=== PATIENT | male | born 1940 | race Caucasian/White ===

== ENCOUNTER → 2016-09-11 | Outpatient (CLI) | payer OTHER ==
[~2016-09-11] MED LIST: ASPEC81 PO; LISI20TA3 PO; OMEG10007 PO; OMEP40CA PO; PRCUNK PO; SIMV40TA2 PO
--- NOTE | 2016-09-11 16:35 | ECHOCARDIOGRAM REPORT ---
*NOTICE TO RECEIVING DEMOCRAT AGENCY This information is strictly Confidential and protected under [place] law. [place] law prohibits you from making any further disclosure of this information unless further disclosure is expressly permitted by the written consent of the person to whom it pertains or is authorized by law. A general authorization for the release of medical or other information is not sufficient for this purpose. Hospital accepts no responsibility if the information is made available to any other person, INCLUDING THE PATIENT. 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 * There is no comparison study available. * -- Conclusions -- * Ejection Fraction = 65-70%. * There is mild concentric left ventricular hypertrophy. * Aortic valve sclerosis mild, without significant aortic valvular stenosis. * The aortic root is normal size. * Mildly dilated ascending aorta. (4.3cm) Procedure Details * A complete two-dimensional transthoracic echocardiogram was performed (2D, M-mode, Doppler and color flow Doppler). Left Ventricle * The left ventricle is normal in size. * There is no thrombus. * There is mild concentric left ventricular hypertrophy. * The basal septum is thickened and angulated consistent with sigmoid septum. * Left ventricular systolic function is normal. * Ejection Fraction = 65-70%. * The left ventricular wall motion is normal. Right Ventricle * The right ventricle is normal size. * The right ventricular systolic function is normal as assessed by tricuspid annular plane systolic excursion (TAPSE) (normal >1.5 cm). Atria * The left atrial size is normal. * Right atrial size is normal. * There is no evidence of atrial septal defect, but resolution does not allow assessment for a patent foramen ovale. Mitral Valve * The mitral valve is normal. * There is no mitral valve stenosis. * Significant mitral regurgitation is absent. Tricuspid Valve * The tricuspid valve is normal. * There is no tricuspid stenosis. * Significant tricuspid regurgitation is absent. Aortic Valve * The aortic valve is trileaflet. * Aortic valve sclerosis mild, without significant aortic valvular stenosis. * Aortic stenosis is absent. * There is no significant aortic regurgitation. Pulmonic Valve * The pulmonary valve is inadequately visualized, but the Doppler data is adequate for interpretation. * There is no pulmonic valvular stenosis. * Trace pulmonic valvular regurgitation. Great Vessels * The aortic root is normal size. * Mildly dilated ascending aorta. Pericardium/Pleural * There is no pericardial effusion. Great Vessels * Normal inferior vena cava diameter and respiratory variation suggests normal central venous pressure. Left Ventricular Diastolic Function * Grade I diastolic dysfunction, (abnormal relaxation pattern). MMode 2D Measurements and Calculations IVSd 1.3 cm IVSs 1.5 cm LVIDd 3.5 cm LVIDs 1.9 cm LVPWd 1.2 cm LVPWs 1.3 cm IVS/LVPW 1.1 FS 45.7 % EDV(Teich) 49.6 ml ESV(Teich) 10.9 ml EF(Teich) 78.0 % EDV(cubed) 41.5 ml ESV(cubed) 6.7 ml EF(cubed) 84.0 % % IVS thick 13.9 % % LVPW thick 9.9 % LV mass(C)d 145.4 grams LV mass(C)dI 77.0 grams/m\S\2 LV mass(C)s 82.5 grams LV mass(C)sI 43.7 grams/m\S\2 SV(Teich) 38.7 ml SI(Teich) 20.5 ml/m\S\2 SV(cubed) 34.9 ml SI(cubed) 18.5 ml/m\S\2 Ao root diam 2.6 cm Ao root area 5.4 cm\S\2 LA dimension 3.2 cm asc Aorta Diam 4.3 cm LA/Ao 1.2 LVAd ap4 34.0 cm\S\2 LVLd ap4 8.6 cm EDV(MOD-sp4) 107.0 ml EDV(sp4-el) 113.6 ml LVAs ap4 18.6 cm\S\2 LVLs ap4 6.8 cm ESV(MOD-sp4) 42.3 ml ESV(sp4-el) 43.1 ml EF(MOD-sp4) 60.4 % EF(sp4-el) 62.0 % LVAd ap2 31.7 cm\S\2 LVLd ap2 8.2 cm EDV(MOD-sp2) 100.4 ml EDV(sp2-el) 103.5 ml LVAs ap2 18.7 cm\S\2 LVLs ap2 6.8 cm ESV(MOD-sp2) 43.1 ml ESV(sp2-el) 43.9 ml EF(MOD-sp2) 57.0 % EF(sp2-el) 57.5 % LVLd %diff -5.22 % EDV(MOD-bp) 105.5 ml LVLs %diff -0.54 % ESV(MOD-bp) 42.5 ml EF(MOD-bp) 59.7 % SV(MOD-sp4) 64.7 ml SI(MOD-sp4) 34.2 ml/m\S\2 SV(MOD-sp2) 57.2 ml SI(MOD-sp2) 30.3 ml/m\S\2 SV(MOD-bp) 63.0 ml SI(MOD-bp) 33.4 ml/m\S\2 SV(sp4-el) 70.5 ml SI(sp4-el) 37.3 ml/m\S\2 SV(sp2-el) 59.5 ml SI(sp2-el) 31.5 ml/m\S\2 Doppler Measurements and Calculations MV E max susan 84.7 cm/sec MV A max susan 102.5 cm/sec MV E/A 0.83 MV P1/2t max susan 83.6 cm/sec MV P1/2t 94.9 msec MVA(P1/2t) 2.3 cm\S\2 MV dec slope 257.9 cm/sec\S\2 MV dec time 0.22 sec Ao V2 max 146.8 cm/sec Ao max PG 8.6 mmHg Ao max PG (full) 2.5 mmHg LV V1 max PG 6.1 mmHg LV V1 max 123.5 cm/sec MR max susan 540.5 cm/sec MR max PG 116.9 mmHg PA V2 max 128.3 cm/sec PA max PG 6.6 mmHg PI max susan 190.7 cm/sec PI max PG 14.5 mmHg PI dec slope 153.1 cm/sec\S\2 PI P1/2t 364.7 msec TR max susan 257.9 cm/sec
== END | disposition home or self-care (01) ==
LOC: C.CPL 13:26
PROVIDERS: ATTEND Internal Medicine
DX: I71.2 Thoracic aortic aneurysm, without rupture (principal)

== ENCOUNTER 2019-12-13 13:32 | Inpatient (IN) ==
[2019-12-13] MEDS ORDERED: ONDANSETRON INJ 2 MG/ML 2 ML VIAL IV STA (14:47)
[2019-12-13] MEDS ORDERED: diphenhydrAMINE 50 MG/ML VIAL IV STA (14:47)
[2019-12-13] MEDS ORDERED: PIPERACILLIN/TAZOBACTAM 4.5 GM/120 ML BAG IV STA (14:54)
[2019-12-13] MEDS ORDERED: DAPTOmycin 450 MG in SYRINGE 0 ML IV STA (14:55)
--- NOTE | 2019-12-13 14:56 | Emergency Department Note ---
Impression & Plan Infection of right foot, Cellulitis, Failure of outpatient treatment ED Provider Note NAME: KRISTIE VIGIL AGE: 79 SEX: M : 1940 ARRIVES VIA: Walk-In INFORMANT: [Patient][daughter] ED PROVIDER(S): [Axel De Paz MD] CHIEF COMPLAINT: Infection HISTORY OF PRESENT ILLNESS: The patient is an 79-year-old male who presents to the ER with complaints of a worsening right foot infection. The patient has had this wound for 3 months. He initially was admitted to the [facility] in [place] for the wound. It got better for a while but since has been worsening. He was referred to the wound center and has been seeing them religiously. He has been on IV gentamicin from December 01 through the . He did develop a rash that is described as itchy, the gentamicin was stopped 2 days ago, on Wednesday. The patient saw the wound center yesterday and was referred to the ED for IV antibiotic therapy, wound debridement and hospitalization. He is failing outpatient treatment. The patient complains of itchiness from his rash. He states his skin is itchy everywhere. There are some red bumps on the skin. He also complains of right foot pain when he tries to walk, the pain is an 8. He basically has been laying in bed. The patient primarily speaks [place]an, he refuses any language interpreter. His granddaughter is interpreting at the bedside. The patient does speak a decent a mount of Greek though. There has been no fever, he has not had chills. No cough or cold or congestion. No abdominal pain. No vomiting. He is eating and drinking well. REVIEW OF SYSTEMS: See HPI for pertinent positives and negatives. A total of ten systems were r eviewed and were otherwise negative. PMHx/PSHx: See Below SOCIAL HISTORY: See Below. PHYSICAL EXAM: GENERAL: Patient is in no acute distress. HEENT: No acute trauma, normocephalic atraumatic, mucous membranes moist, no nasal congestion, no scleral icterus. NECK: No stridor, no adenopathy, no meningismus, trachea is midline. LUNGS: Clear to auscultation bilaterally, no wheeze, no rhonchi, breath sounds equal. HEART: Without murmurs gallops or rubs, regular rate and rhythm. ABDOMEN: Soft, nontender, bowel sounds positive, no hernias, no peritonitis. EXTREMITIES: No cyanosis. He does have some moderate bilateral pedal edema. There is a purulent deeper wound located on the plantar aspect of the foot at th e base of the fourth through fifth toes. There is some surrounding erythema. The area is tender to touch. NEUROLOGIC: Oriented x 3, no acute motor or sensory deficits, no focal weakness. SKIN: Papular erythematous rash primarily on the chest and back, no jaundice, no diaphoresis. DIFFERENTIAL DIAGNOSIS: Cellulitis, osteomyelitis, failed outpatient treatment, sepsis, bacteremia, vascular compromise, gangrene, necrotizing fasciitis. EMERGENCY DEPARTMENT COURSE/PROCEDURES: MEDICAL DECISION MAKING: There is no leukocytosis or concerning anemia. There is a normal platelet count. No significant electrolyte abnormality or kidney failure. Lactic acid level is not elevated making sepsis less likely. No liver enzyme elevation. Right foot CT did not show any osteomyelitis, cellulitis was suspected. On exam, patient was not toxic or febrile. Patient received IV Zosyn and IV daptomycin for antibiotic coverage. He was given IV morphine for pain, IV Zofran for nausea. He received IV Benadryl for nausea. The patient was sent to this ER by the wound center for IV antibiotic therapy, hospitalization and surgical intervention. The patient is in need of a hospital stay, he has failed his outpatient treatment. I did speak to the patient and his granddaughter. I spoke with case management. The on-call hospitalist was consulted. Past Med/Surg History Medical History BPH (benign prostatic hyperplasia) Dyslipidemia GERD (gastroesophageal reflux disease) History of colon cancer Rectosigmoid junction Hypertension Pulmonary hypertension Surgical History History of colon resection History of colonoscopy with polypectomy Family History (Updated 12/13/19 @ 17:39 by Suzy Quiñones PA-C) Other Hypertension Social History Smoking Status: Former smoker Hx Alcohol Use: Yes Alcohol type: hard liquor Hx Substance Use: No Preferred Language: [place]an Communication Ability: Impaired Communication Ability Comment: daughter translates, refuses translation services 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: Yes and Voice Beliefs That Will Affect Care: None Current Living Situation: Spouse Current Living Situation Comment: Domestic partner Other Information That Helps Us Care for You: Yes (Daughter translates) Feels Safe at Home: Yes Safety Concerns: Feels Safe At This Time Assistive Devices: Cane Allergies Allergies Allergy/AdvReac Type Severity Reaction Status Date / Time procaine Allergy Severe convulsions Verified 12/13/19 16:26 Home Meds Home Medications Medication Instructions Recorded Confirmed omega-3 fatty acids 1,000 mg 1,000 mg PO DAILY 11/28/19 12/13/19 capsule lisinopril 10 mg PO DAILY 12/13/19 12/13/19 omeprazole 40 mg PO DAILY 12/13/19 12/13/19 Previous Rx's Medication Instructions Recorded finasteride 5 mg tablet 5 mg PO DAILY #90 tab 01/10/19 sildenafil (pulm.hypertension) 20 20 mg PO DAILY PRN #60 tab 10/20/19 mg tablet collagenase clostridium histo. 250 1 applic TOPICAL DAILY #90 g 11/28/19 unit/gram topical ointment Results & Data (ED) Vital Signs Vital Signs - 24 hr 12/13/19 13:36 Temperature 36.8 C Temperature Source Oral Pulse Rate 101 H Pulse Rhythm Regular Pulse Strength Normal Respiratory Rate 19 Respiratory Effort / Characteristics Non-Labored Spontaneous Respiratory Depth Normal Respiratory Pattern Regular Blood Pressure 141/82 H Blood Pressure Mean 101 Pulse Oximetry 95 Oxygen Delivery Method Room Air Sepsis Recent Fever Within 48 Hours Yes Sepsis New/Unexplained Change in Mental Status N/A Sepsis Action Taken by Nursing No Action Required Home Medications Current Medication List: was personally reviewed by me Laboratory Data Attestation: I reviewed the patient's lab results. Result diagrams: 12/13/19 15:12 12/13/19 15:12 Lab Results 12/13/19 12/13/19 12/13/19 Range/Units 15:12 15:12 15:12 WBC 6.81 (4.8-10.8) K/uL RBC 4.92 (4.7-6.1) M/uL Hgb 15.3 (14.0-18.0) g/dL Hct 43.2 (42-52) % MCV 87.8 (80-100) fL MCH 31.1 (25-34) pg MCHC 35.4 (32-36) g/dL RDW Std Deviation 41.7 (36.4-46.3) fL RDW Coeff of Ed 12.9 (11.5-14.5) % Plt Count 217 (130-400) K/uL MPV 9.6 (7.4-10.4) fL Immature Gran % (Auto) 0.1 % Neut % (Auto) 66.3 % Lymph % (Auto) 17.3 % [place] % (Auto) 12.5 % Eos % (Auto) 3.5 % Baso % (Auto) 0.3 % Neut # (Auto) 4.51 (1.4-6.5) K/uL Lymph # (Auto) 1.18 L (1.2-3.4) K/uL [place] # (Auto) 0.85 H (0.11-0.59) K/uL Eos # (Auto) 0.24 (0-0.5) K/uL Baso # (Auto) 0.02 (0-0.2) K/uL Immature Gran # (Auto) 0.01 (0.00-0.02) K/uL Sodium 140 (136-145) mmol/L Potassium 4.0 (3.5-5.1) mmol/L Chloride 107 (98-107) mmol/L Carbon Dioxide 27 (21-32) mmol/L Anion Gap 6.0 (3-11) BUN 21 H (7-18) mg/dl Creatinine 1.02 (0.6-1.4) mg/dl Est Cr Clr Drug Dosing Not Reportable Est GFR ( Amer) 79.5 Est GFR (Non-Af Amer) 68.6 BUN/Creatinine Ratio 21.0 H (10-20) Glucose 129 H (70-99) mg/dl Lactate 1.4 (0.4-2.0) mmol/L Calcium 9.3 (8.5-10.1) mg/dl Total Bilirubin 0.7 (0.2-1) mg/dl AST 19 (15-37) U/L ALT 36 (12-78) U/L Alkaline Phosphatase 79 (45-117) U/L Total Protein 6.9 (6.4-8.2) gm/dl Albumin 3.7 (3.4-5.0) gm/dl Globulin 3.2 (2.5-4.0) gm/dl Albumin/Globulin Ratio 1.2 (0.9-2) Administered Medications Acetaminophen (Acetaminophen 500 Mg Tab) 500 mg PO TID DIANA Stop: 01/12/20 20:59 Last Admin: 12/13/19 21:34 Dose: 500 mg Documented by: [id number] Enoxaparin Sodium (Enoxaparin Inj 40 Mg/0.4 Ml Syr) 40 mg SQ Q24H DIANA Stop: 01/12/20 20:59 Last Admin: 12/13/19 21:34 Dose: 40 mg Documented by: [id number] Piperacillin Sod/Tazobactam (Sod 3.375 gm/ Dextrose) 115 mls @ 28.75 mls/hr IV Q8H DIANA; Protocol Stop: 12/20/19 19:59 Last Admin: 12/13/19 21:30 Dose: 28.8 mls/hr Documented by: [id number] Discontinued Medications Diphenhydramine HCl (Diphenhydramine 50 Mg/Ml Vial) 12.5 mg IV NOW STA Stop: 12/13/19 14:48 Last Admin: 12/13/19 15:23 Dose: 12.5 mg Documented by: [id number] Piperacillin Sod/Tazobactam Sod (Zosyn) 4.5 gm in 120 mls @ 200 mls/hr IV NOW STA Stop: 12/13/19 15:29 Last Infusion: 12/13/19 16:05 Dose: 0 mls/hr Documented by: [id number] Admin: 12/13/19 15:24 Dose: 200 mls/hr Documented by: [id number] Daptomycin 450 mg/ Syringe 9 mls @ 4.5 mls/min IV NOW STA; Protocol Stop: 12/13/19 14:56 Last Admin: 12/13/19 16:37 Dose: 4.5 mls/min Documented by: [id number] Daptomycin 375 mg/ Syringe 7.5 mls @ 0 mls/min IV Q24H DIANA; Protocol Stop: 12/20/19 15:59 Last Admin: 12/13/19 20:05 Dose: Not Given Documented by: [id number] Miscellaneous (Patient's Height And/Or Weight Needed) 1 ea N/A Q10M DIANA Stop: 01/12/20 18:59 Last Admin: 12/13/19 19:53 Dose: 1 ea Documented by: [id number] Admin: 12/13/19 19:53 Dose: 1 ea Documented by: [id number] Admin: 12/13/19 19:53 Dose: 1 ea Documented by: [id number] Admin: 12/13/19 19:52 Dose: 1 ea Documented by: [id number] Admin: 12/13/19 19:51 Dose: 1 ea Documented by: [id number] Admin: 12/13/19 19:49 Dose: 1 ea Documented by: [id number] Morphine Sulfate (Morphine Sulfate 2 Mg/Ml Carp) 2 mg IV Q30M PRN PRN Reason: Pain Stop: 12/27/19 14:46 Last Admin: 12/13/19 16:37 Dose: 2 mg Documented by: [id number] Admin: 12/13/19 15:23 Dose: 2 mg Documented by: [id number] Ondansetron HCl (Ondansetron Inj 2 Mg/Ml 2 Ml Vial) 4 mg IV NOW STA Stop: 12/13/19 14:48 Last Admin: 12/13/19 15:31 Dose: 4 mg Documented by: [id number] Imaging Data Radiologist's Impression: CT SCAN OF THE RIGHT FOOT WITHOUT IV CONTRAST CLINICAL HISTORY: Infection. COMPARISON STUDY: Radiographs of the right foot dated 11/15/2019. MRI of the right foot dated 12/04/2019. TECHNIQUE: CT scan of the right foot is performed from the distal tibia and fibula to the base of the foot. Images are reviewed in the axial, sagittal, and coronal planes. IV contrast was not administered for this examination. A dose lowering technique was utilized adhering to the principles of ALARA. FINDINGS: The skeletal structures are osteopenic. No fracture is seen. 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 Moderate to advanced osteoarthritic change is seen at the first metatarsophalangeal joint. No bony erosion or periostitis is identified to suggest osteomyelitis. The ankle mortise is intact. There is no ankle joint effusion. Degenerative spurring is noted along the dorsal aspect of the tarsal bones. Soft tissue edema is present throughout the foot and ankle. The Achilles tendon is intact as visualized. No organized fluid collection is seen to suggest abscess. There is atherosclerotic calcification of the regional arteries. IMPRESSION: 1. No acute bony abnormality is identified in the right foot. 2. Diffuse soft tissue edema suggests cellulitis. Clinical correlation will be required. Discharge Plan Visit Data Chief Complaint: Infection, Wound Stated Complaint: INFECTION IN FOOT ED Provider: Axel De Paz Discharge Problem: Infection of right foot, Cellulitis, Failure of outpatient treatment Patient Disposition: Admitted As Inpatient Condition: Good Discharge Instructions Interventions: ED Discharge Assessment Last Done: 12/13/19 18:08 Discharge Problem: Cellulitis Qualifiers: Site of cellulitis: extremity Site of cellulitis of extremity: lower extremity Laterality: right Qualified Code(s): L03.115 - Cellulitis of right lower limb
[2019-12-13] MEDS: MoRPHine SULFATE 2 MG/ML CARP IV PRN ×2 (15:23→16:37)
[2019-12-13 15:27] LABS: Basophils # (auto) 0.02 K/uL (0-0.2); Basophils % (auto) 0.3 %; Eosinophils # (auto) 0.24 K/uL (0-0.5); Eosinophils % (auto) 3.5 %; Hematocrit (blood only) 43.2 % (42-52); Hemoglobin 15.3 g/dL (14.0-18.0); Immature Granulocytes # (auto) 0.01 K/uL (0.00-0.02); Immature Granulocytes % (auto) 0.1 %; Lymphocytes # (auto) 1.18 K/uL (1.2-3.4); Lymphocytes % (auto) 17.3 %; Mean Corpuscular Hemoglobin 31.1 pg (25-34); Mean Corpuscular Hgb Conc 35.4 g/dL (32-36); Mean Corpuscular Volume 87.8 fL (80-100); Mean Platelet Volume 9.6 fL (7.4-10.4); Monocytes # (auto) 0.85 K/uL (0.11-0.59); Monocytes % (auto) 12.5 %; Neutrophils # (auto) 4.51 K/uL (1.4-6.5); Neutrophils % (auto) 66.3 %; Platelet Count 217 K/uL (130-400); RDW Coefficient of Variation 12.9 % (11.5-14.5); RDW Standard Deviation 41.7 fL (36.4-46.3); Red Blood Count 4.92 M/uL (4.7-6.1); White Blood Count 6.81 K/uL (4.8-10.8)
[2019-12-13 15:49] LABS: Alanine Aminotransferase 36 U/L (12-78); Albumin Level 3.7 gm/dl (3.4-5.0); Aspartate Aminotransferase 19 U/L (15-37); Blood Urea Nitrogen 21 mg/dl (7-18); Calcium 9.3 mg/dl (8.5-10.1); Carbon Dioxide 27 mmol/L (21-32); Chloride 107 mmol/L (98-107); Est GFR (African American) 79.5; Est GFR (Non-African American) 68.6; Glucose 129 mg/dl (70-99); Sodium 140 mmol/L (136-145)
[2019-12-13 15:52] LABS: Albumin Globulin Ratio 1.2 (0.9-2); Alkaline Phosphatase 79 U/L (45-117); Bilirubin,Total 0.7 mg/dl (0.2-1); Globulin 3.2 gm/dl (2.5-4.0); Total Protein 6.9 gm/dl (6.4-8.2)
[2019-12-13] MEDS ORDERED: DAPTOmycin 375 MG in SYRINGE 0 ML IV SCH (16:00)
--- NOTE | 2019-12-13 16:48 | CT Scan Report ---
CT SCAN OF THE RIGHT FOOT WITHOUT IV CONTRAST CLINICAL HISTORY: Infection. COMPARISON STUDY: Radiographs of the right foot dated 11/15/2019. MRI of the right foot dated 12/04/19. TECHNIQUE: CT scan of the right foot is performed from the distal tibia and fibula to the base of the foot. Images are reviewed in the axial, sagittal, and coronal planes. IV contrast was not administer ed for this examination. A dose lowering technique was utilized adhering to the principles of ALARA. FINDINGS: The skeletal structures are osteopenic. No fracture is seen. 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 Moderate to advanc ed osteoarthritic change is seen at the first metatarsophalangeal joint. No bony erosion or periostit is is identified to suggest osteomyelitis. The ankle mortise is intact. There is no ankle joint effus ion. Degenerative spurring is noted along the dorsal aspect of the tarsal bones. Soft tissue edema is present throughout the foot and ankle. The Achilles tendon is intact as visualized. No organized flu id collection is seen to suggest abscess. There is atherosclerotic calcification of the regional ksenia alesia. IMPRESSION: 1. No acute bony abnormality is identified in the right foot. 2. Diffuse soft tissue edema suggests cellulitis. Clinical correlation will be required. ACT 112: Negative or not required by law. Dictated: 12/13/2019 3:54 PM Transcribed: 12/13/2019 4:45 PM An [id number] Electronically signed by: Axel Lockwood M.D. 12/13/2019 4:47 PM
--- NOTE | 2019-12-13 17:39 | History & Physical Report ---
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 Failed outpt IV antibiotic with IV Gentamycin x 10 days. Wound culture 11/27 pneumonias and Serratia. Admit to [facility] telemetry Consult wound care Dr. Lopez and wound care nurse Obtain superficial wound culture Blood cultures ordered Continue broad-spectrum IV antibiotics with daptomycin and Zosyn, monitor CK Likely need for surgical debridement - will await wound consult pain control (3) Hypertension: BP elevated in ED likely in setting of pain continue lisinopril (4) Dyslipidemia: continue fish oil (5) GERD (gastroesophageal reflux disease): continue PPI (6) DVT prophylaxis: SQ Lovenox Disposition: admit to [facility] tele Follow up: PCP Dr. Mar upon discharge Pt was seen and examined in collaboration with Dr. Hahn, please see addendum History of Present Illness Chief Complaint: Worsening R foot wound; Referred by wound clinic. 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 Patient is Palestinian-speaking and currently denies translation services. His family at bedside provides translation as well as patient speaks decent Citizen Of [place]. Initially wound started out as a, "crack to the palm of the foot." It continue to progress to open wound. He was referred to wound clinic by PCP and has recently underwent work- up for osteomyelitis. He had outpatient right foot MRI on 12/04/2019 which was negative for osteomyelitis. Due to worsening wound and concern for infection he did begin IV antibiotics with gentamicin x10 days. Outpatient wound culture on 11/27 grew Pseudomonas and Serratia. Both were sensitive to gentamicin, but patient unfortunately had no improvement. Subsequently he developed a generalized erythematous rash worse on his back. He has been using topical ointments as well as cold showers for relief. His wound continues to have drainage, increased pain and is foul-smelling. He was seen and evaluated by wound clinic yesterday who recommended patient to hospital for IV antibiotics and likely surgical debridement, but patient was very agitated and declined. Fortunately he did opt to seek treatment today. He denies any fever, chills, sweats, illness, dizziness, chest pain, shortness with, palpitations, nausea, vomiting, diarrhea, abdominal pain. Family member at bedside feels he has been more fatigued & decreased appetite but no known weight loss. He has not been using any treatment to the wound secondary to it causing pain. In ED patient made hemodynamically stable. Start on broad-spectrum IV antibiotics with daptomycin and Zosyn. Blood culture was obtained. CBC and CMP were generally unremarkable, mild elevation of glucose 129. Foot CT was again negative for bone involvement but likely suggestive of cellulitis. Allergies Allergy/AdvReac Type Severity Reaction Status Date / Time procaine Allergy Severe convulsions Verified 12/13/19 16:26 Home Medications Home Medications Medication Instructions Recorded Confirmed Type finasteride 5 mg tablet 5 mg PO DAILY #90 tab 01/10/19 12/13/19 Rx sildenafil (pulm.hypertension) 20 20 mg PO DAILY PRN #60 tab 10/20/19 12/13/19 Rx mg tablet collagenase clostridium histo. 250 1 applic TOPICAL DAILY #90 g 11/28/19 12/13/19 Rx unit/gram topical ointment omega-3 fatty acids 1,000 mg 1,000 mg PO DAILY 11/28/19 12/13/19 History capsule lisinopril 10 mg PO DAILY 12/13/19 12/13/19 History omeprazole 40 mg PO DAILY 12/13/19 12/13/19 History Past Med/Surg History Medical History BPH (benign prostatic hyperplasia) Dyslipidemia GERD (gastroesophageal reflux disease) History of colon cancer Rectosigmoid junction Hypertension Pulmonary hypertension Surgical History History of colon resection History of colonoscopy with polypectomy Family History (Updated 12/13/19 @ 17:39 by Suzy Quiñones PA-C) Other Hypertension Social History Smoking Status: Former smoker Hx Alcohol Use: Yes Alcohol type: hard liquor Hx Substance Use: No Preferred Language: Palestinian Communication Ability: Impaired Communication Ability Comment: daughter translates, refuses translation services 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: Yes and Voice Beliefs That Will Affect Care: None Current Living Situation: Spouse Current Living Situation Comment: Domestic partner Other Information That Helps Us Care for You: Yes (Daughter translates) Feels Safe at Home: Yes Safety Concerns: Feels Safe At This Time Assistive Devices: Cane Review of Systems Review of Systems: All systems reviewed & are unremarkable except as noted in HPI & below Physical Exam Physical Exam: Constitutional: WD/WN, male, vitals as above, NAD, sitting up in bed, pleasant, conversing easily Head: Normocephalic, Atraumatic Eyes: PERRL, conjunctivae normal, anicteric sclerae ENMT: external ear and nose normal, oropharynx normal Neck: trachea midline, no thyromegaly normal visual inspection Respiratory: normal respiratory effort, lungs clear to auscultation, no wheeze, rales, rhonchi. Normal insp/exp effort, no accessory muscle use Cardiovascular: RRR, no murmur, right lower extremity ankle and pedal edema, pretibial erythema and warmth Vessels: no JVD or carotid bruit Chest: normal inspection of chest Abdomen: normal bowel sounds, soft, nontender, no hepatosplenomegaly Musculoskeletal: no cyanosis or clubbing, extremities motor strength 5/5 Skin: Erythematous confluent rash to anterior and posterior thorax, blanchable, also noted is a wound to the plantar aspect of the base of planax with escar noted as margins and purulent drainage to center, wound picture noted in chart, foul smelling Neurologic: PERRL, EOMI, accommodation nl, no face palsy, no dysarthria CN's II-XI intact bilaterally and moves all extremities Psychiatric: A+Ox3, euthymic affect Lymphatic: no cervical or axillary lymphadenopathy : deferred Results & Data Results & Data ([facility] [place]) Vital Signs (Past 12 Hours) Vital Signs Temp Pulse Pulse Resp BP BP Pulse Ox 12/13/19 16:38 79 24 165/94 H 96 12/13/19 13:36 36.8 C 101 H 19 141/82 H 95 Laboratory Results Short CBC 12/13/19 Range/Units 15:12 WBC 6.81 (4.8-10.8) K/uL Hgb 15.3 (14.0-18.0) g/dL Hct 43.2 (42-52) % Plt Count 217 (130-400) K/uL BMP 12/13/19 15:12 Sodium 140 Potassium 4.0 Chloride 107 Carbon Dioxide 27 BUN 21 H Creatinine 1.02 Glucose 129 H Calcium 9.3 Liver Function 12/13/19 Range/Units 15:12 Total Bilirubin 0.7 (0.2-1) mg/dl AST 19 (15-37) U/L ALT 36 (12-78) U/L Alkaline Phosphatase 79 (45-117) U/L Albumin 3.7 (3.4-5.0) gm/dl Diagnostic Findings Foot CT: IMPRESSION: 1. No acute bony abnormality is identified in the right foot. 2. Diffuse soft tissue edema suggests cellulitis. Clinical correlation will be required. Foot MRI R: 12/04/19 1. No evidence for osteomyelitis within the right forefoot. 2. No fracture or dislocation. 3. Extensive soft tissue edema within the foot. 4. 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 Code Status & VTE Plan Code Status Full Code VTE Prophylaxis Plan VTE Prophylaxis will be ordered: Yes Supervising Physician Co-Signing Physician Notes Attending Addendum: care coordinated with PATRICE Phelps please refer to her notes for full details, I agree with her notes patient seen and examined, records reviewed by myself as well on exam, patient seen resting in bed, not in distress reports mild discomfort on the right foot no other symptoms VS noted and reviewed oriented , not in distress, speaks in sentences with no effort nor accessory muscle use normal rate, regular rhythm, no murmurs clear breath sounds bilaterally non distended, soft, nontender no bipedal edema, erythema, warmth good pedal pulses (+) open wound on the right foot, plantar aspect, base of 2nd to 5th digits, (+) foul smelling odor, minimal yellow discharge no neuro deficits WBC 6.8 Hg 15.3 Crea 1.02 ASSESSMENT AND PLAN INFECTED, NON HEALING WOUND, RIGHT FOOT CT foot:1. No acute bony abnormality is identified in the right foot. 2. Diffuse soft tissue edema suggests cellulitis. Clinical correlation will be required. MRI Foot 12/04/2019: no osteomyelitis ff up cultures Dapto + Zosyn IV Ortho consulted, NPO post midnight, might need I&D HTN continue Lisinopril plan of care discussed with patient in detail and at length All questions were answered He is understanding, agreeable, comfortable with the plan of care other diagnoses and plan of care as per PATRICE Phelps's notes Danny Hahn MD
[2019-12-13] MEDS ORDERED: ONDANSETRON INJ 2 MG/ML 2 ML VIAL IV PRN (18:50)
[2019-12-13] MEDS ORDERED: ALUMINUM/MAGNESIUM SUSP 30 ML UDC PO PRN (18:50)
[2019-12-13] MEDS ORDERED: POLYETHYLENE (MIRALAX) 17 GM PACK PO PRN (18:50)
[2019-12-13] MEDS ORDERED: ACETAMINOPHEN 325 MG TAB PO PRN (18:50)
[2019-12-13] MEDS ORDERED: MAGNESIUM HYDROXIDE SUSP 30 ML UDC PO PRN (18:50)
[2019-12-13] MEDS ORDERED: PIPERACILL/TAZOBAC CONSULT ACTIVE PRN (18:50)
[2019-12-13] MEDS ORDERED: oxyCODONE HCL IR 5 MG TAB (IMMEDIATE RELEASE) PO PRN (19:09)
[2019-12-13] MEDS: PATIENT'S HEIGHT AND/OR WEIGHT NEEDED SCH ×4 (19:49→19:53)
--- NOTE | 2019-12-13 20:58 | Ultrasound Report ---
ULTRASOUND RIGHT LOWER EXTREMITY VENOUS CLINICAL HISTORY: Right leg pain and swelling. COMPARISON STUDY: No priors. TECHNIQUE: Real-time, grayscale, and color Doppler sonography of the deep veins of the right lower ex tremity was performed from the inguinal crease to the calf. Compression and augmentation were utilize d. FINDINGS: There is no sonographic evidence of deep venous thrombosis identified in the right lower ex tremity. The common femoral, superficial femoral, and popliteal veins are patent and normally leonardo sible. The greater saphenous vein and the profunda femoris vein at the junction with the common femor al vein are clear. The visualized calf veins are patent. IMPRESSION: There is no sonographic evidence of deep venous thrombosis identified in the right lower extremity. ACT 112: Negative or not required by law. Electronically signed by: Axel Lockwood M.D. 12/13/2019 8:57 PM
[2019-12-13] MEDS: PIPERACILLIN/TAZOBACTAM 3.375 GM in DEXTROSE 5% 100 ML IV SCH (21:30)
[2019-12-13] MEDS: ACETAMINOPHEN 500 MG TAB PO SCH (21:34)
[2019-12-13] MEDS: ENOXAPARIN INJ 40 MG/0.4 ML SYR SQ SCH (21:34)
[2019-12-14] MEDS ORDERED: MELATONIN 3 MG TAB PO STA (01:24)
[2019-12-14] MEDS: PIPERACILLIN/TAZOBACTAM 3.375 GM in DEXTROSE 5% 100 ML IV SCH ×3 (04:43→20:22)
--- NOTE | 2019-12-14 06:39 | Ultrasound Report ---
US ankle/brachial index comp HISTORY: Patient presents with chronic nonhealing wound of the right foot non healing wound TECHNIQUE: Ankle-brachial indices. FINDINGS: BRACHIAL: Right: 141 mmHg. Left: 136 mmHg. ANKLE (POSTERIOR TIBIAL): Right: 154 mmHg. (1.09) Left: 170 mmHg. (1.21). ANKLE (DORSALIS PEDIS): Right: 152 mmHg. (1.08) Left: 162 mmHg. (1.15). IMPRESSION: Normal ROGER's bilaterally. ACT 112: Negative or not required by law. The above report was generated using voice recognition software. It may contain grammatical, syntax o r spelling errors. Electronically signed by: Mathieu Jacobs M.D. 12/14/2019 6:37 AM
[2019-12-14] MEDS: OMEGA-3 (PURIFIED FISH OIL) 1 GM CAP PO SCH (09:21)
[2019-12-14] MEDS: FINASTERIDE 5 MG TAB PO SCH (09:21)
[2019-12-14] MEDS: PANTOprazole 40 MG TAB PO SCH (09:21)
[2019-12-14] MEDS: ACETAMINOPHEN 500 MG TAB PO SCH ×3 (09:21→20:21)
[2019-12-14] MEDS: lisinopril 10 MG TAB PO SCH (09:22)
[2019-12-14 09:51] LABS: Basophils # (auto) 0.01 K/uL (0-0.2); Basophils % (auto) 0.1 %; Eosinophils % (auto) 4.4 %; Hematocrit (blood only) 41.3 % (42-52); Hemoglobin 14.3 g/dL (14.0-18.0); Immature Granulocytes # (auto) 0.01 K/uL (0.00-0.02); Immature Granulocytes % (auto) 0.1 %; Lymphocytes # (auto) 1.14 K/uL (1.2-3.4); Lymphocytes % (auto) 16.8 %; Mean Corpuscular Hemoglobin 30.7 pg (25-34); Mean Corpuscular Hgb Conc 34.6 g/dL (32-36); Mean Corpuscular Volume 88.6 fL (80-100); Mean Platelet Volume 9.6 fL (7.4-10.4); Monocytes # (auto) 0.67 K/uL (0.11-0.59); Monocytes % (auto) 9.9 %; Neutrophils # (auto) 4.66 K/uL (1.4-6.5); Neutrophils % (auto) 68.7 %; Platelet Count 217 K/uL (130-400); RDW Coefficient of Variation 12.9 % (11.5-14.5); RDW Standard Deviation 41.5 fL (36.4-46.3); Red Blood Count 4.66 M/uL (4.7-6.1); White Blood Count 6.79 K/uL (4.8-10.8)
[2019-12-14 10:11] LABS: Estimated Average Glucose 123 mg/dl; Hemoglobin A1C 5.9 % (4.5-5.6)
[2019-12-14 10:37] LABS: Albumin Level 3.3 gm/dl (3.4-5.0); BUN Creatinine Ratio 14.7 (10-20); Creatinine Clr Calc Pharmacy 45.9 ml/min; Est GFR (African American) 64.7; Est GFR (Non-African American) 55.8
[2019-12-14 10:40] LABS: Albumin Globulin Ratio 1.1 (0.9-2); Bilirubin,Total 1.2 mg/dl (0.2-1); Globulin 2.9 gm/dl (2.5-4.0); Total Protein 6.2 gm/dl (6.4-8.2)
[2019-12-14] MEDS ORDERED: LIDOCAINE/EPINE 2% 1:100,000 20ML INFIL ONE (10:47)
[2019-12-14] MEDS ORDERED: LIDOCAINE HCL 1% 20 ML VIAL ONE (10:52)
--- NOTE | 2019-12-14 12:20 | Consultation Report ---
DATE OF CONSULTATION: 12/14/2019 Consulted to see the patient regarding a right foot infection. He is an 79-year-old gentleman from [place]. He speaks good French and his daughter is here to help translate. She is a former airways operations specialist. The patient reports that back in June, he developed a wound on the foot. There is no injury. It is not really clear how this developed. This began while he was in [place]. He saw a doctor. He has seen Dr. Rodas here in [place]. He has been cared for in the wound clinic. He has been admitted to the hospital yesterday. He complains of discomfort in the foot, especially when it is touched. He is concerned about the use of antibiotics. He has not had any problems with the foot in the past. He is afebrile. His vital signs are stable. His white count is within normal limits. There is no left shift. PRP is noted. Hemoglobin A1c is 5.9, albumin 3.3. He does not have a history of known neuropathy, kidney disease, diabetes, or circulatory problems. His Doppler study showed no DVT. His ABIs are normal. X-rays and CT scan of the foot as well as an MRI are reviewed demonstrating no evidence of abscess or osteomyelitis. There is a soft tissue swelling appreciated. There is no fracture. Arthritis of the first metatarsophalangeal joint is appreciated and the reports are reviewed. Prior wound culture done 11/27 showed Pseudomonas and Serratia. Current cultures are growing out gram-negative bacilli. Blood cultures are pending. PHYSICAL EXAMINATION: He has bounding dorsalis pedis and posterior tibial pulses. He has full movement of the ankle. There is no Achilles contracture. He can slightly wiggle his toes, although it is uncomfortable. There is no erythema and no swelling. There is a macerated wound underlying the fourth, fifth and third metatarsophalangeal joints with excoriation in between the toes and seeping drainage. There is old skin present. He reports some dysesthesias on the top and bottom of the foot. Verbal consent is obtained. 20 mL of 1% lidocaine plain are injected for digital blocks of the second, third, fourth and fifth toes. After adequate analgesia is obtained, the space between the toes are cleaned of old tissue and mucinous material. The skin is excoriated, but there is no open wound and no drainage. There is no evidence of abscess. The skin on the toes and bottom of the foot is debrided, which reveals just excoriated skin with some pitting. There is no open wound in terms of a sinus or abscess present. The area was cleaned and the tissue was sent for yeast/fungal culture. The wound care team, Dr. Lopez and Radha Rodriguez were present, took pictures and applied a dressing with Aquacel AG. IMPRESSION: Probable right foot severe fungal infection/athlete's foot with secondary bacterial infection. PLAN: Findings were discussed. Options were reviewed. He does not have any of the typical risk factors or presentations for the typical foot wounds that we see. There is no contracture or evidence of pressure overload dysvascularity or impaired healing secondary to diabetes. He may have some neuropathy. The imaging studies did not show any significant issues, particularly no deep infection. We are going to go ahead and send the tissue for culture. I spoke to the medical team about getting him on some antifungals whether that be topical, oral or IV. The wound care team is on top of things as well. We will continue to follow and monitor, but hopefully this will help solve this problem. Elevate the foot. There is really not any significant swelling or surrounding erythema present.
[2019-12-14] MEDS: FLUCONAZOLE 100 MG TAB PO SCH (13:35)
--- NOTE | 2019-12-14 14:42 | Wound Consultation ---
Date of Consultation December 14, 2019 Assessment & Plan (1) Infection of right foot: Patient was seen at bedside with Dr. Solis and WOADAM. Patient's daughter was present. Patient's ABIs and venous studies were both normal patient is not diabetic. Agree that patient likely had bad fungal infection with secondary bacterial infection. Patient was debrided at bedside by Dr. Solis. Sample sent for fungal cultures. Recommend patient continue to dress wound with Aquacel Ag with Aquacel Ag wick between toes. This will help keep the wound dry and also has some antifungal properties. This will be changed daily for now. Continue antibiotics and would recommend oral or IV antifungal to help get the infection under control. We will continue to follow. Thank you for limited participate in the care of this patient. Please call with any questions. I did answer all the patient's daughter's questions satisfactorily. She did translate for the patient. She also expressed frustration with the patient and his stubbornness. (2) Failure of outpatient treatment: History of Present Illness Reason for Consultation: right foot wound Attending Physician: Louis Arvizu MD History of Present Illness This is an 79-year-old male who is known to the wound clinic and has a history of GERD, hypertension, dyslipidemia and pulmonary hypertension who was admitted yesterday with worsening cellulitis of his right foot. Patient was seen in the wound clinic and it was recommended he was admitted for antibiotics. Patient showed up and left without admission. The hospitalist service did set up IV gentamicin. After discussing with clinical pharmacy was felt that this monotherapy was not sufficient. Attempted to set patient up with Dr. Evans of infectious disease but was unsuccessful. Patient then reported that he was having a reaction to the IV gentamicin. He was seen in the wound clinic again and it was recommended he goes to the hospital for admission. Patient refused. I spoke with patient's granddaughter yesterday to explain everything. I explained that he had resistant cellulitis in his foot and needed further antibiotics. I also explained that if he was having a reaction to the antibiotics he needed to be seen. Patient's granddaughter expressed understanding and made patient come in for admission. Allergies Allergy/AdvReac Type Severity Reaction Status Date / Time procaine Allergy Severe convulsions Verified 12/13/19 16:26 Home Medications Home Medications Medication Instructions Recorded Confirmed Type finasteride 5 mg tablet 5 mg PO DAILY #90 tab 11/19/19 10/21/20 Rx sildenafil (pulm.hypertension) 20 20 mg PO DAILY PRN #60 tab 10/20/19 12/13/19 Rx mg tablet collagenase clostridium histo. 250 1 applic TOPICAL DAILY #90 g 11/28/19 12/13/19 Rx unit/gram topical ointment omega-3 fatty acids 1,000 mg 1,000 mg PO DAILY 11/28/19 12/13/19 History capsule lisinopril 10 mg PO DAILY 12/13/19 12/13/19 History omeprazole 40 mg PO DAILY 12/13/19 12/13/19 History Patient History Medical History BPH (benign prostatic hyperplasia) Dyslipidemia GERD (gastroesophageal reflux disease) History of colon cancer Rectosigmoid junction Hypertension Pulmonary hypertension Surgical History History of colon resection History of colonoscopy with polypectomy Family History Other Hypertension Social History Smoking Status: Former smoker Hx Alcohol Use: Yes Alcohol type: hard liquor Hx Substance Use: No Preferred Language: Paraguayan Communication Ability: Effective Communication Ability Comment: daughter translates, refuses translation services 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: Yes and Voice Beliefs That Will Affect Care: None Current Living Situation: Spouse Current Living Situation Comment: Domestic partner Other Information That Helps Us Care for You: Yes (Daughter translates) Feels Safe at Home: Yes Safety Concerns: Feels Safe At This Time Assistive Devices: Cane and Special Shoe Review of Systems Review of Systems: All systems reviewed & are unremarkable except as noted in HPI & below Physical Exam Physical Exam: Temp Pulse Resp BP Pulse Ox 36.7 C 75 18 116/69 95 12/14/19 07:24 12/14/19 07:24 12/14/19 07:24 12/14/19 07:24 12/14/19 07:24 Constitutional: WD/WN, vitals as above Eyes: PERRL, conjunctivae normal, anicteric sclerae Skin: Wound measuring as recorded in nursing documentation. Wound is gone from 2nd-5th toes. Wound is covered with slough and necrotic tissue. There is a large amount of drainage and foul odor. Neurologic: awake; not confused Psychiatric: A+Ox3, euthymic affect Results & Data ([facility]) Vital Signs (Past 12 Hours) Vital Signs Temp Pulse Pulse Resp BP Pulse Ox 12/14/19 07:24 36.7 C 75 18 116/69 95 12/14/19 07:14 66 12/14/19 03:13 37 C 69 18 133/83 97 Laboratory Results 12/14/19 12/14/19 12/14/19 Range/Units 09:26 09:26 09:26 WBC 6.79 (4.8-10.8) K/uL RBC 4.66 L (4.7-6.1) M/uL Hgb 14.3 (14.0-18.0) g/dL Hct 41.3 L (42-52) % MCV 88.6 (80-100) fL MCH 30.7 (25-34) pg MCHC 34.6 (32-36) g/dL RDW Std Deviation 41.5 (36.4-46.3) fL RDW Coeff of Ed 12.9 (11.5-14.5) % Plt Count 217 (130-400) K/uL MPV 9.6 (7.4-10.4) fL Immature Gran % (Auto) 0.1 % Neut % (Auto) 68.7 % Lymph % (Auto) 16.8 % Antelope % (Auto) 9.9 % Eos % (Auto) 4.4 % Baso % (Auto) 0.1 % Neut # (Auto) 4.66 (1.4-6.5) K/uL Lymph # (Auto) 1.14 L (1.2-3.4) K/uL Antelope # (Auto) 0.67 H (0.11-0.59) K/uL Eos # (Auto) 0.30 (0-0.5) K/uL Baso # (Auto) 0.01 (0-0.2) K/uL Immature Gran # (Auto) 0.01 (0.00-0.02) K/uL Sodium 138 (136-145) mmol/L Potassium 4.0 (3.5-5.1) mmol/L Chloride 103 (98-107) mmol/L Carbon Dioxide 31 (21-32) mmol/L Anion Gap 3.0 (3-11) BUN 18 (7-18) mg/dl Creatinine 1.21 (0.6-1.4) mg/dl Est Cr Clr Drug Dosing 45.9 Est GFR ( Amer) 64.7 Est GFR (Non-Af Amer) 55.8 BUN/Creatinine Ratio 14.7 (10-20) Glucose 132 H (70-99) mg/dl Estimat Average Glucose 123 mg/dl Hemoglobin A1c 5.9 H (4.5-5.6) % Lactate (0.4-2.0) mmol/L Calcium 9.0 (8.5-10.1) mg/dl Total Bilirubin 1.2 H D (0.2-1) mg/dl AST 15 (15-37) U/L ALT 34 (12-78) U/L Alkaline Phosphatase 65 (45-117) U/L Total Creatine Kinase 52 (39-308) U/L Total Protein 6.2 L (6.4-8.2) gm/dl Albumin 3.3 L (3.4-5.0) gm/dl Globulin 2.9 (2.5-4.0) gm/dl Albumin/Globulin Ratio 1.1 (0.9-2) 12/13/19 12/13/19 12/13/19 Range/Units 15:12 15:12 15:12 WBC 6.81 (4.8-10.8) K/uL RBC 4.92 (4.7-6.1) M/uL Hgb 15.3 (14.0-18.0) g/dL Hct 43.2 (42-52) % MCV 87.8 (80-100) fL MCH 31.1 (25-34) pg MCHC 35.4 (32-36) g/dL RDW Std Deviation 41.7 (36.4-46.3) fL RDW Coeff of Ed 12.9 (11.5-14.5) % Plt Count 217 (130-400) K/uL MPV 9.6 (7.4-10.4) fL Immature Gran % (Auto) 0.1 % Neut % (Auto) 66.3 % Lymph % (Auto) 17.3 % Antelope % (Auto) 12.5 % Eos % (Auto) 3.5 % Baso % (Auto) 0.3 % Neut # (Auto) 4.51 (1.4-6.5) K/uL Lymph # (Auto) 1.18 L (1.2-3.4) K/uL Antelope # (Auto) 0.85 H (0.11-0.59) K/uL Eos # (Auto) 0.24 (0-0.5) K/uL Baso # (Auto) 0.02 (0-0.2) K/uL Immature Gran # (Auto) 0.01 (0.00-0.02) K/uL Sodium 140 (136-145) mmol/L Potassium 4.0 (3.5-5.1) mmol/L Chloride 107 (98-107) mmol/L Carbon Dioxide 27 (21-32) mmol/L Anion Gap 6.0 (3-11) BUN 21 H (7-18) mg/dl Creatinine 1.02 (0.6-1.4) mg/dl Est Cr Clr Drug Dosing Not Reportable Est GFR ( Amer) 79.5 Est GFR (Non-Af Amer) 68.6 BUN/Creatinine Ratio 21.0 H (10-20) Glucose 129 H (70-99) mg/dl Estimat Average Glucose mg/dl Hemoglobin A1c (4.5-5.6) % Lactate 1.4 (0.4-2.0) mmol/L Calcium 9.3 (8.5-10.1) mg/dl Total Bilirubin 0.7 (0.2-1) mg/dl AST 19 (15-37) U/L ALT 36 (12-78) U/L Alkaline Phosphatase 79 (45-117) U/L Total Creatine Kinase (39-308) U/L Total Protein 6.9 (6.4-8.2) gm/dl Albumin 3.7 (3.4-5.0) gm/dl Globulin 3.2 (2.5-4.0) gm/dl Albumin/Globulin Ratio 1.2 (0.9-2) Diagnostic Findings CT the foot showed no evidence of osteomyelitis. ABIs were normal bilaterally. Venous studies were negative for DVT. PG Care Time/CCT Total # of Minutes Spent Total Time Spent with Patient: Total time spent is greater than 50% in coordina tion of care (as documented) at patient's floor/unit and/or counseling patient: Coding Level of Care Code 83386 Inpt Consult Level 3 Diagnoses Infection of right foot L08.9 Failure of outpatient treatment Z78.9
[2019-12-14] MEDS: DAPTOmycin 375 MG in SYRINGE 0 ML IV SCH (15:53)
--- NOTE | 2019-12-14 16:17 | Hospitalist Progress Note ---
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 Right foot infection Failed outpatient IV antibiotic with IV Gentamicin x 10 days. Wound culture 11/27 Pseudomonas and Serratia. -Foot MRI: No evidence for osteomyelitis within the right forefoot. No fracture or dislocation. Extensive soft tissue edema within the foot. 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 -Foot CT:No acute bony abnormality is identified in the right foot. Diffuse soft tissue edema suggests cellulitis. Clinical correlation will be required. -Ankle-brachial index:Normal ROGER's bilaterally. -Venous Doppler:There is no sonographic evidence of deep venous thrombosis identified in the right lower extremity. -Normal CK levels -Blood Culture:pending -Wound Culture :pending -S/P debridement on 12/14/19 -Continue daptomycin, Zosyn for now -Added fluconazole -Continue daily dressing -Appreciate orthopedics, wound care help -Pain control -Consider ID evaluation if needed (2) Wound infection: Management as above (3) Hypertension: BP Variable continue lisinopril Monitor (4) Dyslipidemia: On fish oil (5) GERD (gastroesophageal reflux disease): continue pantoprazole (6) DVT prophylaxis: SQ Lovenox Disposition: Expected discharge home when medically stable Admission and Anticipated Discharge Date Admission Date: December 13, 2019 Subjective Patient is seen and examined at bedside Complains of right foot pain Discussed with orthopedics today Also states having poor sleep Denies chest pain, shortness breath, dizziness, nausea, abdominal pain Offers no other complaints Review of Systems Review of Systems: All systems reviewed & are unremarkable except as noted in HPI & below Physical Exam Physical Exam: Physical Exam: Vitals signs as noted above General Appearance:Moderately built and nourished, no apparent distress Head: normocephalic, Atraumatic Eyes: normal inspection, EOMI Neck: supple, Trachea midline Respiratory/Chest: Normal breath sounds, CTA Cardiovascular: S1, S2, No murmur Abdomen/GI:Soft, Non tender, Bowel sounds present Extremities/Musculoskelatal:normal inspection, no edema, R foot wound in dressing Neurologic/Psych:AAOX3, grossly no focal neurological deficits Skin: normal color, warm Results & Data Results & Data ([facility]) Vital Signs (Past 12 Hours) Vital Signs Temp Pulse Pulse Resp BP Pulse Ox 12/14/19 15:58 36.4 C L 76 18 104/92 91 12/14/19 07:24 36.7 C 75 18 116/69 95 12/14/19 07:14 66 Laboratory Results Short CBC 12/14/19 Range/Units 09:26 WBC 6.79 (4.8-10.8) K/uL Hgb 14.3 (14.0-18.0) g/dL Hct 41.3 L (42-52) % Plt Count 217 (130-400) K/uL BMP 12/14/19 09:26 Sodium 138 Potassium 4.0 Chloride 103 Carbon Dioxide 31 BUN 18 Creatinine 1.21 Glucose 132 H Calcium 9.0 Cardiac Enzymes 12/14/19 Range/Units 09:26 Total Creatine Kinase 52 (39-308) U/L Liver Function 12/14/19 Range/Units 09:26 Total Bilirubin 1.2 H D (0.2-1) mg/dl AST 15 (15-37) U/L ALT 34 (12-78) U/L Alkaline Phosphatase 65 (45-117) U/L Albumin 3.3 L (3.4-5.0) gm/dl
[2019-12-14] MEDS: ZOLPIDEM TARTRATE 5 MG TAB PO PRN (20:20)
[2019-12-14] MEDS: ENOXAPARIN INJ 40 MG/0.4 ML SYR SQ SCH (20:21)
[2019-12-15] MEDS: PIPERACILLIN/TAZOBACTAM 3.375 GM in DEXTROSE 5% 100 ML IV SCH ×3 (04:20→19:57)
[2019-12-15 07:22] LABS: Calcium 9.1 mg/dl (8.5-10.1); Creatinine Clr Calc Pharmacy 43.6 ml/min; Est GFR (African American) 62.2; Est GFR (Non-African American) 53.7; Magnesium 2.2 mg/dl (1.8-2.4)
[2019-12-15] MEDS: FLUCONAZOLE 100 MG TAB PO SCH (08:23)
[2019-12-15] MEDS: PANTOprazole 40 MG TAB PO SCH (08:24)
[2019-12-15] MEDS: ACETAMINOPHEN 500 MG TAB PO SCH ×3 (08:24→19:57)
[2019-12-15] MEDS: lisinopril 10 MG TAB PO SCH (08:24)
[2019-12-15] MEDS: FINASTERIDE 5 MG TAB PO SCH (08:24)
[2019-12-15] MEDS: OMEGA-3 (PURIFIED FISH OIL) 1 GM CAP PO SCH (08:24)
[2019-12-15] MEDS: MoRPHine SULFATE 2 MG/ML CARP IV PRN (11:54)
--- NOTE | 2019-12-15 15:34 | Wound Progress Note ---
Date of Service December 15, 2019 Assessment & Plan (1) Infection of right foot: Patient is stable. Minor improvement. Still with significant pain with dressing changes. Continue to dress wound with aquacel ag daily. Continue antibiotics and antifungal. If no significant improvement over weekend consider ID input. Will continue to follow. Please call with any questions. (2) Failure of outpatient treatment: Admission and Anticipated Discharge Date Admission Date: December 13, 2019 Subjective Patient seen at bedside with WOCN. Dressing removed. Patient remains on IV antibiotics and PO fluconazole. Still with pain. No new complaints. Review of Systems Review of Systems: All systems reviewed & are unremarkable except as noted in HPI & below Physical Exam Physical Exam: Temp Pulse Resp BP Pulse Ox 36.8 C 67 16 118/73 94 12/15/19 07:46 12/15/19 07:46 12/15/19 07:46 12/15/19 07:46 12/15/19 07:46 Skin: Wound measuring as recorded in nursing documentation. Wound is covered with fibrin and slough. There is large amount of thick drainage. Neurologic: awake; not confused Psychiatric: A+Ox3, euthymic affect Results & Data ([facility]) Vital Signs (Past 12 Hours) Vital Signs Temp Pulse Resp BP Pulse Ox 12/15/19 07:46 36.8 C 67 16 118/73 94 12/15/19 04:00 36.6 C 61 18 106/61 94 PG Care Time/CCT Total # of Minutes Spent Total Time Spent with Patient: Total time spent is greater than 50% in coordination of care (as documented) at patient's floor/unit and/or counseling patient: Coding Level of Care Code 84733 Subseq Hosp Care Lvl 2 Diagnoses Infection of right foot L08.9 Failure of outpatient treatment Z78.9
[2019-12-15] MEDS: DAPTOmycin 375 MG in SYRINGE 0 ML IV SCH (16:42)
--- NOTE | 2019-12-15 18:27 | Hospitalist Progress Note ---
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 Right foot infection Failed outpatient IV antibiotic with IV Gentamicin x 10 days. Wound culture 11/27 Pseudomonas and Serratia. -Foot MRI: No evidence for osteomyelitis within the right forefoot. No fracture or dislocation. Extensive soft tissue edema within the foot. 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 -Foot CT:No acute bony abnormality is identified in the right foot. Diffuse soft tissue edema suggests cellulitis. Clinical correlation will be required. -Ankle-brachial index:Normal ROGER's bilaterally. -Venous Doppler:There is no sonographic evidence of deep venous thrombosis identified in the right lower extremity. -Normal CK levels -Blood Culture:No growth to date -Wound Culture :gram negative bacilli -S/P debridement on 12/14/19 -Continue daptomycin, Zosyn, fluconazole -Appreciate orthopedics, wound care help -Pain control -Will Consult ID when cultures result -Continue local wound care (2) Wound infection: Management as above (3) Hypertension: BP Variable continue lisinopril Monitor (4) Dyslipidemia: On fish oil (5) GERD (gastroesophageal reflux disease): continue pantoprazole (6) DVT prophylaxis: SQ Lovenox Disposition: Expected discharge home when medically stable Admission and Anticipated Discharge Date Admission Date: December 13, 2019 Subjective Patient is seen and examined at bedside Right foot pain is better No new complaints Dressing changed today Slept better overnight Denies chest pain, SOB, dizziness, nausea, abdominal pain Offers no other complaints Review of Systems Review of Systems: All systems reviewed & are unremarkable except as noted in HPI & below Physical Exam Physical Exam: Physical Exam: Vitals signs as noted above General Appearance:Moderately built and nourished, no apparent distress Head: normocephalic, Atraumatic Eyes: normal inspection, EOMI Neck: supple, Trachea midline Respiratory/Chest: Normal breath sounds, CTA Cardiovascular: S1, S2, No murmur Abdomen/GI:Soft, Non tender, Bowel sounds present Extremities/Musculoskelatal:normal inspection, no edema, R foot wound in dressing Neurologic/Psych:AAOX3, grossly no focal neurological deficits Skin: normal color, warm Results & Data Results & Data ([facility]) Vital Signs (Past 12 Hours) Vital Signs Temp Pulse Resp BP BP Pulse Ox 12/15/19 16:12 36.9 C 64 18 121/80 96 12/15/19 07:46 36.8 C 67 16 118/73 94 Laboratory Results [facility] [place] 12/15/19 06:32 Sodium 139 Potassium 4.0 Chloride 105 Carbon Dioxide 28 BUN 19 H Creatinine 1.25 Glucose 118 H Calcium 9.1
[2019-12-15] MEDS: ZOLPIDEM TARTRATE 5 MG TAB PO PRN (19:58)
[2019-12-15] MEDS: ENOXAPARIN INJ 40 MG/0.4 ML SYR SQ SCH (20:02)
[2019-12-16] MEDS: PIPERACILLIN/TAZOBACTAM 3.375 GM in DEXTROSE 5% 100 ML IV SCH ×3 (03:19→20:19)
[2019-12-16 08:17] LABS: Hematocrit (blood only) 43.6 % (42-52); Hemoglobin 15.4 g/dL (14.0-18.0); Mean Corpuscular Hemoglobin 31.1 pg (25-34); Mean Corpuscular Hgb Conc 35.3 g/dL (32-36); Mean Corpuscular Volume 88.1 fL (80-100); Mean Platelet Volume 9.6 fL (7.4-10.4); Platelet Count 230 K/uL (130-400); RDW Coefficient of Variation 12.9 % (11.5-14.5); RDW Standard Deviation 41.3 fL (36.4-46.3); Red Blood Count 4.95 M/uL (4.7-6.1); White Blood Count 6.23 K/uL (4.8-10.8)
[2019-12-16 08:42] LABS: BUN Creatinine Ratio 13.8 (10-20); Calcium 9.2 mg/dl (8.5-10.1); Creatinine Clr Calc Pharmacy 38.5 ml/min; Est GFR (African American) 58.8; Est GFR (Non-African American) 50.7; Magnesium 2.1 mg/dl (1.8-2.4); Potassium 4.1 mmol/L (3.5-5.1)
[2019-12-16] MEDS: lisinopril 10 MG TAB PO SCH (08:56)
[2019-12-16] MEDS: PANTOprazole 40 MG TAB PO SCH (08:56)
[2019-12-16] MEDS: ACETAMINOPHEN 500 MG TAB PO SCH ×3 (08:56→20:20)
[2019-12-16] MEDS: FLUCONAZOLE 100 MG TAB PO SCH (08:56)
[2019-12-16] MEDS: OMEGA-3 (PURIFIED FISH OIL) 1 GM CAP PO SCH (08:56)
[2019-12-16] MEDS: FINASTERIDE 5 MG TAB PO SCH (08:56)
[2019-12-16] MEDS: MoRPHine SULFATE 2 MG/ML CARP IV PRN (13:14)
[2019-12-16] MEDS: hydrOXYzine HCl 25 MG TAB PO PRN (16:17)
--- NOTE | 2019-12-16 17:27 | Hospitalist Progress Note ---
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 Right foot infection Failed outpatient IV antibiotic with IV Gentamicin x 10 days. Wound culture 11/27 Pseudomonas and Serratia. -Foot MRI: No evidence for osteomyelitis within the right forefoot. No fracture or dislocation. Extensive soft tissue edema within the foot. 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 -Foot CT:No acute bony abnormality is identified in the right foot. Diffuse soft tissue edema suggests cellulitis. Clinical correlation will be required. -Ankle-brachial index:Normal ROGER's bilaterally. -Venous Doppler:There is no sonographic evidence of deep venous thrombosis identified in the right lower extremity. -Normal CK levels -Blood Culture:No growth to date -Wound Culture : Pseudomonas -Fungal Culture: Negative to date -S/P debridement on 12/14/19 -Daptomycin, Fluconazole discontinued -Continue Zosyn for now -Appreciate orthopedics, wound care help -Pain control -Consulted ID for Input -May need PICC line placement -Continue daily dressing (2) Wound infection: Management as above (3) Hypertension: BP stable continue lisinopril Monitor (4) Dyslipidemia: On fish oil (5) GERD (gastroesophageal reflux disease): continue pantoprazole (6) DVT prophylaxis: SQ Lovenox Disposition: Expected discharge home when medically stable Admission and Anticipated Discharge Date Admission Date: December 13, 2019 Subjective Patient is seen and examined at bedside Right foot pain about same as yesterday Has chronic itching Not very co-operative with PT/OT Denies chest pain, SOB, dizziness, nausea, abdominal pain Offers no other complaints Review of Systems Review of Systems: All systems reviewed & are unremarkable except as noted in HPI & below Physical Exam Physical Exam: Physical Exam: Vitals signs as noted above General Appearance:Moderately built and nourished, no apparent distress Head: normocephalic, Atraumatic Eyes: normal inspection, EOMI Neck: supple, Trachea midline Respiratory/Chest: Normal breath sounds, CTA Cardiovascular: S1, S2, No murmur Abdomen/GI:Soft, Non tender, Bowel sounds present Extremities/Musculoskelatal:normal inspection, no edema, R foot wound in dressing Neurologic/Psych:AAOX3, grossly no focal neurological deficits Skin: normal color, warm Results & Data Results & Data ([facility]) Vital Signs (Past 12 Hours) Vital Signs Temp Pulse Resp BP Pulse Ox 12/16/19 08:07 36.7 C 76 18 118/75 95 Laboratory Results Short CBC 12/16/19 Range/Units 07:41 WBC 6.23 (4.8-10.8) K/uL Hgb 15.4 (14.0-18.0) g/dL Hct 43.6 (42-52) % Plt Count 230 (130-400) K/uL BMP 12/16/19 07:41 Sodium 137 Potassium 4.1 Chloride 106 Carbon Dioxide 28 BUN 18 Creatinine 1.31 Glucose 116 H Calcium 9.2
[2019-12-16] MEDS: ENOXAPARIN INJ 40 MG/0.4 ML SYR SQ SCH (20:20)
[2019-12-16] MEDS: ZOLPIDEM TARTRATE 5 MG TAB PO PRN (20:36)
[2019-12-17] MEDS: hydrOXYzine HCl 25 MG TAB PO PRN ×2 (00:44→10:05)
[2019-12-17] MEDS: PIPERACILLIN/TAZOBACTAM 3.375 GM in DEXTROSE 5% 100 ML IV SCH ×3 (04:07→19:42)
[2019-12-17] MEDS: OMEGA-3 (PURIFIED FISH OIL) 1 GM CAP PO SCH (09:54)
[2019-12-17] MEDS: PANTOprazole 40 MG TAB PO SCH (09:54)
[2019-12-17] MEDS: FINASTERIDE 5 MG TAB PO SCH (09:54)
[2019-12-17] MEDS: ACETAMINOPHEN 500 MG TAB PO SCH ×3 (09:54→19:50)
[2019-12-17] MEDS: lisinopril 10 MG TAB PO SCH (09:57)
[2019-12-17] MEDS: FEXOFENADINE 60 MG TAB PO SCH (12:25)
[2019-12-17] MEDS: MoRPHine SULFATE 2 MG/ML CARP IV PRN (12:42)
--- NOTE | 2019-12-17 16:26 | Hospitalist Progress Note ---
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 Right foot infection Failed outpatient IV antibiotic with IV Gentamicin x 10 days. Wound culture 11/27 Pseudomonas and Serratia. -Foot MRI: No evidence for osteomyelitis within the right forefoot. No fracture or dislocation. Extensive soft tissue edema within the foot. 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 -Foot CT:No acute bony abnormality is identified in the right foot. Diffuse soft tissue edema suggests cellulitis. Clinical correlation will be required. -Ankle-brachial index:Normal ROGER's bilaterally. -Venous Doppler:There is no sonographic evidence of deep venous thrombosis identified in the right lower extremity. -Normal CK levels -Blood Culture:No growth to date -Wound Culture : Pseudomonas -Fungal Culture: Negative to date -S/P debridement on 12/14/19 -Daptomycin, Fluconazole discontinued -Continue Zosyn -Appreciate orthopedics, wound care help -Pain control -wait for ID Input -May need PICC line placement -Continue daily dressing -PT/OT as tolerated -Continue current medications Idiopathic Chronic Itching Reports symptoms for ~3 years Has seen many dermatologists in the past Started on fexofenadine Advised to follow up with Allergy/Immunology as outpatient (2) Wound infection: Management as above (3) Hypertension: BP stable continue lisinopril Monitor (4) Dyslipidemia: On fish oil (5) GERD (gastroesophageal reflux disease): continue pantoprazole (6) DVT prophylaxis: SQ Lovenox Disposition: Expected discharge home when medically stable Admission and Anticipated Discharge Date Admission Date: December 13, 2019 Subjective Patient is seen and examined at bedside No new complaints Right foot pain is better States have significant foot pain with ambulation Reports chronic itching Denies chest pain, SOB, dizziness, nausea, abdominal pain Offers no other complaints Review of Systems Review of Systems: All systems reviewed & are unremarkable except as noted in HPI & below Physical Exam Physical Exam: Physical Exam: Vitals signs as noted above General Appearance:Moderately built and nourished, no apparent distress Head: normocephalic, Atraumatic Eyes: normal inspection, EOMI Neck: supple, Trachea midline Respiratory/Chest: Normal breath sounds, CTA Cardiovascular: S1, S2, No murmur Abdomen/GI:Soft, Non tender, Bowel sounds present Extremities/Musculoskelatal:normal inspection, no edema, R foot wound in dressing Neurologic/Psych:AAOX3, grossly no focal neurological deficits Skin: normal color, warm Results & Data Results & Data ([facility]) Vital Signs (Past 12 Hours) Vital Signs Temp Pulse Resp BP BP Pulse Ox 12/17/19 14:52 36.3 C L 78 18 119/72 95 12/17/19 07:00 36.6 C 69 18 118/74 95
[2019-12-17] MEDS: ENOXAPARIN INJ 40 MG/0.4 ML SYR SQ SCH (19:42)
[2019-12-18] MEDS: PIPERACILLIN/TAZOBACTAM 3.375 GM in DEXTROSE 5% 100 ML IV SCH ×2 (04:54→12:20)
[2019-12-18 06:37] LABS: Hematocrit (blood only) 45.3 % (42-52); Hemoglobin 15.8 g/dL (14.0-18.0); Mean Corpuscular Hemoglobin 30.7 pg (25-34); Mean Corpuscular Hgb Conc 34.9 g/dL (32-36); Mean Corpuscular Volume 88.1 fL (80-100); Mean Platelet Volume 9.3 fL (7.4-10.4); Platelet Count 220 K/uL (130-400); RDW Coefficient of Variation 12.8 % (11.5-14.5); RDW Standard Deviation 40.9 fL (36.4-46.3); Red Blood Count 5.14 M/uL (4.7-6.1)
[2019-12-18 07:07] LABS: BUN Creatinine Ratio 12.7 (10-20); Calcium 9.1 mg/dl (8.5-10.1); Creatinine Clr Calc Pharmacy 37.6 ml/min; Est GFR (African American) 57.2; Est GFR (Non-African American) 49.3; Potassium 4.3 mmol/L (3.5-5.1)
[2019-12-18] MEDS: PANTOprazole 40 MG TAB PO SCH (08:39)
[2019-12-18] MEDS: OMEGA-3 (PURIFIED FISH OIL) 1 GM CAP PO SCH (08:39)
[2019-12-18] MEDS: FEXOFENADINE 60 MG TAB PO SCH (08:39)
[2019-12-18] MEDS: FINASTERIDE 5 MG TAB PO SCH (08:39)
[2019-12-18] MEDS: lisinopril 10 MG TAB PO SCH (08:40)
[2019-12-18] MEDS: ACETAMINOPHEN 500 MG TAB PO SCH ×3 (08:40→20:58)
--- NOTE | 2019-12-18 10:41 | Progress Notes ---
DATE: 12/18/2019 SUBJECTIVE: The patient reports improvement in terms of pain. He has been afebrile. Cultures did not grow out any yeast or hyphae. The bacterial cultures from 12/12 grew out Pseudomonas. The dressing is removed. It is still uncomfortable. There is no erythema. In between the toes and at the base of the toes is dryer with the exception of some moistness under the fourth toe. Drainage is scant. I left things open for wound care to check him out in a little bit. He had mentioned that he wanted to see a rn neonatal and a consult has been put in. I suggested maybe we can get a bundle packer to look at him. Lastly, he had mentioned about some treatments that he had with a rn neonatal over the summer and I have asked him to find out what these were as he thought they were more helpful than what we have been doing for him.
--- NOTE | 2019-12-18 12:50 | Podiatry Consultation ---
Date of Consultation December 18, 2019 Assessment & Plan (1) Cellulitis: Laterality: right Site of cellulitis: extremity Site of cellulitis of extremity: lower extremity Qualified Code(s): L03.115 - Cellulitis of right lower limb (2) Tinea pedis: History of Present Illness Attending Physician: Louis Arvizu MD Patient is a very pleasant 79 year old male seen today at bedside due to ongoing pain associated with tinea pedis superinfection. Patient states he was seeing a commercial green retrofit architect in [facility]. but then moved back here after COVID initial surge. Currently patient feels that the dressings consisting of aquacell silver and gauze. After speaking with him it seems that they were using xeroform and gauze, but he also stated to be sure he is having is notes form his previous commercial green retrofit architect sent today. Patient is suffering as the infection hurts his foot at the MPJ if the right foot, the inflammation is present but seems much improved, there was no active drainage or malodor I discussed with patient that these superinfections occur when the skin breaks done/macerates from the fungal infection and opens the area leaving it susceptible to a bacterial infection as well, thus the importance of abx, which he is on and should continue, some additionally require a 3 month course of oral Lamisil as well, if the LFTs and liver can tolerate however given history of colon surgery I m not sure this will be suitable, I will leave that decision to his medication team, cultures grew pseudo being currently treated Oral medication of abx and oral Lamisil, anti fungal if ok per medicine team, and patient will need the corret topical as well, typically aquacell works great however if patient feels it isn't comfortable, then xeroform would be fine as well I discussed with patient that he can f/u with me outpatient after d/c Allergies Allergy/AdvReac Type Severity Reaction Status Date / Time procaine Allergy Severe convulsions Verified 12/13/19 16:26 Home Medications Home Medications Medication Instructions Recorded Confirmed Type finasteride 5 mg tablet 5 mg PO DAILY #90 tab 01/10/19 12/13/19 Rx sildenafil (pulm.hypertension) 20 20 mg PO DAILY PRN #60 tab 10/20/19 12/13/19 Rx mg tablet collagenase clostridium histo. 250 1 applic TOPICAL DAILY #90 g 11/28/19 12/13/19 Rx unit/gram topical ointment omega-3 fatty acids 1,000 mg 1,000 mg PO DAILY 11/28/19 12/13/19 History capsule lisinopril 10 mg PO DAILY 12/13/19 12/13/19 History omeprazole 40 mg PO DAILY 12/13/19 12/13/19 History Patient History Medical History BPH (benign prostatic hyperplasia) Dyslipidemia GERD (gastroesophageal reflux disease) History of colon cancer Rectosigmoid junction Hypertension Pulmonary hypertension Surgical History History of colon resection History of colonoscopy with polypectomy Family History Other Hypertension Social History Smoking Status: Former smoker Hx Alcohol Use: Yes Alcohol type: hard liquor Hx Substance Use: No Preferred Language: Cymraes Communication Ability: Effective Communication Ability Comment: daughter translates, refuses translation services Communication Tools: IPad and Facial Expression Academic Associate Required: Yes and Voice Beliefs That Will Affect Care: None Current Living Situation: Spouse Current Living Situation Comment: Domestic partner Other Information That Helps Us Care for You: Yes (Daughter translates) Feels Safe at Home: Yes Safety Concerns: Feels Safe At This Time Assistive Devices: Cane and Special Shoe Physical Exam Skin: right foot with interdigital erythema and inflammation consistent with tinea pedis and bacterial infection, continue topicals and orals per medicine team, patient [facility] Vital Signs (Past 12 Hours) Vital Signs Temp Pulse Resp BP Pulse Ox 12/18/19 06:55 36.7 C 72 20 119/76 94
--- NOTE | 2019-12-18 15:34 | Wound Progress Note ---
Date of Service December 18, 2019 Assessment & Plan (1) Infection of right foot: Wound is minimally improved. Fungal cultures are negative. Would recommend continuing release with topical antifungal. Continue IV antibiotics for Pseudomonas. Patient did receive Cipro when he was in [place] however, repeat culture showed the Pseudomonas to be resistant to this. Patient also failed a course of 10 days of IV gentamicin. Patient is complaining of itching between the toes of his left foot and is where the same thing will happen over there. Recommend topical nystatin powder twice daily. We will continue to follow. Please call with any questions. Admission and Anticipated Discharge Date Admission Date: December 13, 2019 Subjective Patient seen at bedside with SHON. Patient states pain is minimally improved. He believes treatment he received in [place] worked better. Fungal culture is negative so far. Review of Systems Review of Systems: All systems reviewed & are unremarkable except as noted in HPI & below Physical Exam 2 Physical Exam: Temp Pulse Resp BP Pulse Ox 36.3 C L 91 H 20 113/76 94 12/18/19 15:08 12/18/19 15:08 12/18/19 15:08 12/18/19 15:08 12/18/19 15:08 Skin: Wound measuring as recorded in nursing documentation. Wound is dryer. Periwound is intact without inflammation. Neurologic: awake; not confused Psychiatric: A+Ox3, euthymic affect Results & Data ([facility]) Vital Signs (Past 12 Hours) Vital Signs Temp Pulse Resp BP BP Pulse Ox 12/18/19 15:08 36.3 C L 91 H 20 113/76 94 12/18/19 06:55 36.7 C 72 20 119/76 94 PG Care Time/CCT Total # of Minutes Spent Total Time Spent with Patient: Total time spent is greater than 50% in coordination of care (as documented) at patient's floor/unit and/or counseling patient: Coding Level of Care Code 65750 Subseq Hosp Care Lvl 2 Diagnoses Infection of right foot L08.9
[2019-12-18] MEDS ORDERED: predniSONE 20 MG TAB PO ONE (16:34)
[2019-12-18] MEDS ORDERED: CONSULT PHARMACY PRN (16:58)
[2019-12-18] MEDS: hydrOXYzine HCl 10 MG TAB PO PRN (17:09)
--- NOTE | 2019-12-18 17:11 | Hospitalist Progress Note ---
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 Right foot infection Failed outpatient IV antibiotic with IV Gentamicin x 10 days. Wound culture 11/27 Pseudomonas and Serratia. -Foot MRI: No evidence for osteomyelitis within the right forefoot. No fracture or dislocation. Extensive soft tissue edema within the foot. 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 -Foot CT:No acute bony abnormality is identified in the right foot. Diffuse soft tissue edema suggests cellulitis. Clinical correlation will be required. -Ankle-brachial index:Normal ROGER's bilaterally. -Venous Doppler:There is no sonographic evidence of deep venous thrombosis identified in the right lower extremity. -Normal CK levels -Blood Culture:No growth to date -Wound Culture : Pseudomonas -Fungal Culture: Negative to date -S/P debridement on 12/14/19 -Daptomycin, Fluconazole discontinued -Received Zosyn>>Transitioned to Meropenem -Appreciate orthopedics, wound care and Podiatry help -Pain control -Appreciate ID Input -May need PICC line placement -Continue daily dressing -PT/OT as tolerated -Follow up fungal cultures Idiopathic Chronic Itching Reports symptoms for ~3 years Reports rash while on Gentamicin Has seen many dermatologists in the past Continue fexofenadine0--renally dosed Vistaril PRN Prednisone taper Consider Dermatology eval (2) Wound infection: Management as above (3) Hypertension: BP stable continue lisinopril Monitor (4) Dyslipidemia: On fish oil (5) GERD (gastroesophageal reflux disease): continue pantoprazole (6) DVT prophylaxis: SQ Lovenox Disposition: Expected discharge home when medically stable Admission and Anticipated Discharge Date Admission Date: December 13, 2019 Subjective Patient is seen and examined at bedside Right foot pain about the same as yesterday Reports chronic itching but has worsened Seen by Podiatry and consulted by ID today Discussed with family at bedside in detail Denies chest pain, SOB, dizziness, nausea, abdominal pain Review of Systems Review of Systems: All systems reviewed & are unremarkable except as noted in HPI & below Physical Exam Physical Exam: Physical Exam: Vitals signs as noted above General Appearance:Moderately built and nourished, no apparent distress Head: normocephalic, Atraumatic Eyes: normal inspection, EOMI Neck: supple, Trachea midline Respiratory/Chest: Normal breath sounds, CTA Cardiovascular: S1, S2, No murmur Abdomen/GI:Soft, Non tender, Bowel sounds present Extremities/Musculoskelatal:normal inspection, no edema, R foot wound in dressing Neurologic/Psych:AAOX3, grossly no focal neurological deficits Skin: normal color, warm Results & Data Results & Data ([facility] [place]) Vital Signs (Past 12 Hours) Vital Signs Temp Pulse Resp BP BP Pulse Ox 12/18/19 15:08 36.3 C L 91 H 20 113/76 94 12/18/19 06:55 36.7 C 72 20 119/76 94 Laboratory Results Short CBC 12/18/19 Range/Units 06:16 WBC 6.50 (4.8-10.8) K/uL Hgb 15.8 (14.0-18.0) g/dL Hct 45.3 (42-52) % Plt Count 220 (130-400) K/uL BMP 12/18/19 06:16 Sodium 138 Potassium 4.3 Chloride 105 Carbon Dioxide 30 BUN 17 Creatinine 1.34 Glucose 117 H Calcium 9.1
[2019-12-18] MEDS: MEROPENEM 500 MG in SYRINGE 0 ML IV SCH (18:16)
[2019-12-18] MEDS: ENOXAPARIN INJ 40 MG/0.4 ML SYR SQ SCH ×2 (20:57→21:00)
[2019-12-18] MEDS: FAMOTIDINE 10 MG TABLET PO SCH (20:57)
[2019-12-18] MEDS ORDERED: NYSTATIN POWDER 15GM BTL EXT SCH (21:00)
[2019-12-18] MEDS ORDERED: FEXOFENADINE 60 MG TAB PO SCH (21:00)
[2019-12-19] MEDS: MEROPENEM 500 MG in SYRINGE 0 ML IV SCH ×3 (01:00→17:36)
[2019-12-19 08:45] LABS: BUN Creatinine Ratio 19.6 (10-20); Calcium 9.2 mg/dl (8.5-10.1); Creatinine Clr Calc Pharmacy 42.3 ml/min; Est GFR (Non-African American) 56.9; Potassium 4.2 mmol/L (3.5-5.1)
[2019-12-19] MEDS: hydrOXYzine HCl 10 MG TAB PO PRN (08:55)
[2019-12-19] MEDS: predniSONE 20 MG TAB PO SCH (08:56)
[2019-12-19] MEDS: FINASTERIDE 5 MG TAB PO SCH (08:56)
[2019-12-19] MEDS: FEXOFENADINE 60 MG TAB PO SCH (08:56)
[2019-12-19] MEDS: lisinopril 10 MG TAB PO SCH (08:56)
[2019-12-19] MEDS: PANTOprazole 40 MG TAB PO SCH (08:57)
[2019-12-19] MEDS: OMEGA-3 (PURIFIED FISH OIL) 1 GM CAP PO SCH (08:57)
[2019-12-19] MEDS: ACETAMINOPHEN 500 MG TAB PO SCH ×3 (08:58→20:07)
[2019-12-19] MEDS: TERBINAFINE CR 30 GM TUBE EXT SCH ×2 (15:03→20:10)
--- NOTE | 2019-12-19 18:24 | Hospitalist Progress Note ---
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 Right foot infection Failed outpatient IV antibiotic with IV Gentamicin x 10 days. Wound culture 11/27 Pseudomonas and Serratia. -Foot MRI: No evidence for osteomyelitis within the right forefoot. No fracture or dislocation. Extensive soft tissue edema within the foot. 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 -Foot CT:No acute bony abnormality is identified in the right foot. Diffuse soft tissue edema suggests cellulitis. Clinical correlation will be required. -Ankle-brachial index:Normal ROGER's bilaterally. -Venous Doppler:There is no sonographic evidence of deep venous thrombosis identified in the right lower extremity. -Normal CK levels -Blood Culture:No growth to date -Wound Culture : Pseudomonas -Fungal Culture: Negative to date -S/P debridement on 12/14/19 -Daptomycin, Fluconazole, Zosyn discontinued -Continue IV Meropenem -Appreciate orthopedics, wound care and Podiatry help -Pain control -Appreciate ID Input -May need PICC line placement -Continue daily dressing -PT/OT as tolerated -Follow up fungal cultures -Needs 2 week course of IV antibiotics Idiopathic Chronic Itching ? Eczema Reports symptoms for ~3 years Reports rash while on Gentamicin Has seen many dermatologists in the past Reports taking cold water showers multiple times a day likely contributing to dryness Advised to avoid frequents showers Continue fexofenadine--renally dosed Also on Vistaril, Prednisone taper Continue moisturizing cream Consider Dermatology eval (2) Wound infection: Management as above (3) Hypertension: BP slightly elevated continue lisinopril Monitor Chronic Insomnia On Doxepin (4) Dyslipidemia: On fish oil (5) GERD (gastroesophageal reflux disease): continue pantoprazole (6) DVT prophylaxis: SQ Lovenox Disposition: To be determined Admission and Anticipated Discharge Date Admission Date: December 13, 2019 Subjective Patient is seen and examined at bedside Right foot pain, Generalized Itching slightly better No new complaints Denies chest pain, SOB, dizziness, nausea, abdominal pain Poor sleep Review of Systems Review of Systems: All systems reviewed & are unremarkable except as noted in HPI & below Physical Exam Physical Exam: Physical Exam: Vitals signs as noted above General Appearance:Moderately built and nourished, no apparent distress Head: normocephalic, Atraumatic Eyes: normal inspection, EOMI Neck: supple, Trachea midline Respiratory/Chest: Normal breath sounds, CTA Cardiovascular: S1, S2, No murmur Abdomen/GI:Soft, Non tender, Bowel sounds present Extremities/Musculoskelatal:normal inspection, no edema, R foot wound in dr burns Neurologic/Psych:AAOX3, grossly no focal neurological deficits Skin: normal color, warm Results & Data Results & Data ([facility]) Vital Signs (Past 12 Hours) Vital Signs Temp Pulse Resp BP Pulse Ox 12/19/19 15:53 36.5 C 91 H 20 154/79 H 95 12/19/19 07:50 36.6 C 72 18 144/82 H 92 Laboratory Results [facility] 12/19/19 07:47 Sodium 136 Potassium 4.2 Chloride 106 Carbon Dioxide 24 BUN 23 H Creatinine 1.19 Glucose 113 H Calcium 9.2
[2019-12-19] MEDS: oxyCODONE HCL IR 5 MG TAB (IMMEDIATE RELEASE) PO SCH (20:06)
[2019-12-19] MEDS: hydrOXYzine HCl 10 MG TAB PO SCH (20:06)
[2019-12-19] MEDS: DOXEPIN HCL 10 MG CAPSULE PO SCH (20:06)
[2019-12-19] MEDS: FAMOTIDINE 10 MG TABLET PO SCH (20:07)
[2019-12-19] MEDS: ENOXAPARIN INJ 40 MG/0.4 ML SYR SQ SCH (20:10)
[2019-12-19] MEDS: EUCERIN CR 120 GM JAR EXT SCH (20:16)
[2019-12-20] MEDS: MEROPENEM 500 MG in SYRINGE 0 ML IV SCH ×3 (01:04→16:59)
[2019-12-20] MEDS: PANTOprazole 40 MG TAB PO SCH (08:58)
[2019-12-20] MEDS: FEXOFENADINE 60 MG TAB PO SCH (08:58)
[2019-12-20] MEDS: FINASTERIDE 5 MG TAB PO SCH (08:58)
[2019-12-20] MEDS: OMEGA-3 (PURIFIED FISH OIL) 1 GM CAP PO SCH (08:58)
[2019-12-20] MEDS: predniSONE 20 MG TAB PO SCH (08:58)
[2019-12-20] MEDS: lisinopril 10 MG TAB PO SCH (08:58)
[2019-12-20] MEDS: ACETAMINOPHEN 500 MG TAB PO SCH ×3 (08:59→20:18)
[2019-12-20] MEDS: oxyCODONE HCL IR 5 MG TAB (IMMEDIATE RELEASE) PO SCH ×2 (09:01→20:18)
[2019-12-20] MEDS: TERBINAFINE CR 30 GM TUBE EXT SCH ×2 (09:04→20:23)
[2019-12-20] MEDS: hydrOXYzine HCl 10 MG TAB PO SCH ×2 (09:04→20:19)
[2019-12-20] MEDS: EUCERIN CR 120 GM JAR EXT SCH ×2 (09:05→20:22)
[2019-12-20 11:22] LABS: Basophils # (auto) 0.02 K/uL (0-0.2); Basophils % (auto) 0.3 %; Eosinophils # (auto) 0.11 K/uL (0-0.5); Eosinophils % (auto) 1.4 %; Hematocrit (blood only) 44.2 % (42-52); Hemoglobin 15.3 g/dL (14.0-18.0); Immature Granulocytes # (auto) 0.02 K/uL (0.00-0.02); Immature Granulocytes % (auto) 0.3 %; Lymphocytes # (auto) 1.47 K/uL (1.2-3.4); Lymphocytes % (auto) 18.8 %; Mean Corpuscular Hemoglobin 30.5 pg (25-34); Mean Corpuscular Hgb Conc 34.6 g/dL (32-36); Mean Platelet Volume 9.7 fL (7.4-10.4); Monocytes # (auto) 0.66 K/uL (0.11-0.59); Monocytes % (auto) 8.4 %; Neutrophils # (auto) 5.54 K/uL (1.4-6.5); Neutrophils % (auto) 70.8 %; Platelet Count 246 K/uL (130-400); RDW Coefficient of Variation 12.7 % (11.5-14.5); RDW Standard Deviation 40.8 fL (36.4-46.3); Red Blood Count 5.02 M/uL (4.7-6.1); White Blood Count 7.82 K/uL (4.8-10.8)
[2019-12-20 11:44] LABS: BUN Creatinine Ratio 20.3 (10-20); Calcium 8.9 mg/dl (8.5-10.1); Creatinine Clr Calc Pharmacy 37.3 ml/min; Est GFR (African American) 56.7; Est GFR (Non-African American) 48.9; Potassium 3.8 mmol/L (3.5-5.1)
[2019-12-20] MEDS: FAMOTIDINE 10 MG TABLET PO SCH (20:18)
[2019-12-20] MEDS: DOXEPIN HCL 10 MG CAPSULE PO SCH (20:20)
[2019-12-20] MEDS: ENOXAPARIN INJ 40 MG/0.4 ML SYR SQ SCH (20:21)
--- NOTE | 2019-12-20 21:34 | Hospitalist Progress Note ---
Date of Service December 20, 2019 Assessment & Plan (1) Infection of right foot: Infection right 4th and 5th toes with associated cellulitis. No apparent cellulitis per recent MRI & CT. Vascular studies OK. Seen by Ortho, Wound Care, and Podiatry. ID consulted as well. Wound debrided. Wound culture growing Pseudomonas aeruginosa, resistant to ciprofloxacin and levofloxacin. 14 day course of meropenem recommended - today is day # 7. [place] that infection due to underlying tinea pedis. (2) Tinea pedis: [place] that Pseudomonas infection due to underlying tinea pedis. Receiving topical terbinafine. Podiatry recommends considering 3 month course of oral Rx. (3) Hypertension: Continue lisinopril. (4) Chronic pruritus: Receiving prednisone and hydroxyzine. Will need Derm f/u. (5) DVT prophylaxis: SQ enoxaparin. Ambulate. (6) Discharge planning issues: Anticipated discharge to home. Internal Medicine follow-up with Dr. Mar. Admission and Anticipated Discharge Date Admission Date: December 13, 2019 Subjective Recheck for right foot infection and other problems. Patient seen in their room around 1440. Right foot feels better. No fever. Has foot pain with ambulation. Review of Systems: Constitutional- no fever. Cardiac- no chest pain. Pulmonary- no cough or SOB. GI- no nausea, vomiting, diarrhea, melena, hematochezia. - no urinary symptoms. Otherwise, as noted above. Physical Exam Constitutional: no acute distress Respiratory: no respiratory distress Auscultation: lungs clear to auscultation bilaterally Cardiovascular: Rate/Rhythm: regular rate and regular rhythm Vessels: no JVD Extremities: no calf tenderness and no edema Gastrointestinal (Abdomen): normal bowel sounds, soft, nontender, no hepatosplenomegaly Musculoskeletal: Extremities: no cyanosis right foot bandaged Skin: no rashes, warm and dry Psychiatric: Orientation: alert and oriented x 3 Results & Data Results & Data ([facility]) Laboratory Results 12/20/19 10:47 12/20/19 10:47
[2019-12-21] MEDS: MEROPENEM 500 MG in SYRINGE 0 ML IV SCH ×3 (01:19→16:48)
[2019-12-21] MEDS: FEXOFENADINE 60 MG TAB PO SCH (08:14)
[2019-12-21] MEDS: TERBINAFINE CR 30 GM TUBE EXT SCH ×2 (08:14→20:36)
[2019-12-21] MEDS: hydrOXYzine HCl 10 MG TAB PO SCH ×2 (08:14→20:36)
[2019-12-21] MEDS: EUCERIN CR 120 GM JAR EXT SCH ×2 (08:14→20:37)
[2019-12-21] MEDS: lisinopril 10 MG TAB PO SCH (08:14)
[2019-12-21] MEDS: oxyCODONE HCL IR 5 MG TAB (IMMEDIATE RELEASE) PO SCH ×2 (08:14→20:35)
[2019-12-21] MEDS: predniSONE 20 MG TAB PO SCH (08:14)
[2019-12-21] MEDS: PANTOprazole 40 MG TAB PO SCH (08:14)
[2019-12-21] MEDS: FINASTERIDE 5 MG TAB PO SCH (08:14)
[2019-12-21] MEDS: ACETAMINOPHEN 500 MG TAB PO SCH ×3 (08:14→20:35)
[2019-12-21] MEDS: OMEGA-3 (PURIFIED FISH OIL) 1 GM CAP PO SCH (08:15)
[2019-12-21] MEDS: ENOXAPARIN INJ 40 MG/0.4 ML SYR SQ SCH (20:36)
[2019-12-21] MEDS: FAMOTIDINE 10 MG TABLET PO SCH (20:36)
[2019-12-21] MEDS: DOXEPIN HCL 10 MG CAPSULE PO SCH (20:36)
--- NOTE | 2019-12-21 22:15 | Hospitalist Progress Note ---
Date of Service December 21, 2019 Assessment & Plan (1) Infection of right foot: Infection right 4th and 5th toes with associated cellulitis. No apparent cellulitis per recent MRI & CT. Vascular studies OK. Seen by Ortho, Wound Care, and Podiatry. ID consulted as well. [place] that infection due to underlying tinea pedis. Wound debrided. Wound culture grew Pseudomonas aeruginosa, resistant to ciprofloxacin and levofloxacin. 14 day course of IV antibiotics recommended - today is day # 8. Currently receiving meropenem. Transition to ceftazidime for once a day dosing and possible transition to outpatient therapy. (2) Tinea pedis: [place] that Pseudomonas infection due to underlying tinea pedis. Receiving topical terbinafine. Podiatry recommends considering 3 month course of oral Rx. (3) Hypertension: Continue lisinopril. (4) Chronic pruritus: Receiving prednisone and hydroxyzine. Will need Derm f/u. (5) DVT prophylaxis: SQ enoxaparin. Ambulate. (6) Discharge planning issues: Anticipated discharge to home. Internal Medicine follow-up with Dr. Mar. Admission and Anticipated Discharge Date Admission Date: December 13, 2019 Subjective Recheck for right foot infection and other problems. Patient seen in their room around 1530. Right foot feels better. No fever. Still has foot pain with ambulation. Physical Exam Cardiovascular: Extremities: no calf tenderness and no edema Musculoskeletal: Extremities: + cyanosis; + extremities abnormal to inspection (right foot bandaged) Psychiatric: Orientation: alert and oriented x 3 Results & Data Results & Data ([facility]) Vital Signs (Past 12 Hours) Vital Signs Temp Pulse Resp BP Pulse Ox 12/21/19 15:25 36.4 C L 89 18 125/80 94 Laboratory Results
[2019-12-21] MEDS ORDERED: [UNRECOGNIZED DRUG - REMARK] PRN (22:19)
[2019-12-22 07:12] LABS: Creatinine Clr Calc Pharmacy 46.2 ml/min; Est GFR (African American) 73.4; Est GFR (Non-African American) 63.3
[2019-12-22] MEDS: FINASTERIDE 5 MG TAB PO SCH (08:12)
[2019-12-22] MEDS: FEXOFENADINE 60 MG TAB PO SCH (08:12)
[2019-12-22] MEDS: oxyCODONE HCL IR 5 MG TAB (IMMEDIATE RELEASE) PO SCH ×2 (08:12→21:29)
[2019-12-22] MEDS: predniSONE 20 MG TAB PO SCH (08:12)
[2019-12-22] MEDS: PANTOprazole 40 MG TAB PO SCH (08:12)
[2019-12-22] MEDS: lisinopril 10 MG TAB PO SCH (08:12)
[2019-12-22] MEDS: hydrOXYzine HCl 10 MG TAB PO SCH ×2 (08:12→21:30)
[2019-12-22] MEDS: OMEGA-3 (PURIFIED FISH OIL) 1 GM CAP PO SCH (08:12)
[2019-12-22] MEDS: TERBINAFINE CR 30 GM TUBE EXT SCH ×2 (08:13→21:30)
[2019-12-22] MEDS: ACETAMINOPHEN 500 MG TAB PO SCH ×3 (08:13→21:29)
[2019-12-22] MEDS: EUCERIN CR 120 GM JAR EXT SCH ×2 (08:13→21:30)
[2019-12-22] MEDS: FAMOTIDINE 10 MG TABLET PO SCH (21:29)
[2019-12-22] MEDS: ENOXAPARIN INJ 40 MG/0.4 ML SYR SQ SCH (21:30)
[2019-12-22] MEDS: DOXEPIN HCL 10 MG CAPSULE PO SCH (21:30)
--- NOTE | 2019-12-22 21:47 | Hospitalist Progress Note ---
Date of Service December 22, 2019 Assessment & Plan (1) Infection of right foot: Infection right 4th and 5th toes with associated cellulitis. No apparent cellulitis per recent MRI & CT. Vascular studies OK. Seen by Ortho, Wound Care, and Podiatry. ID consulted as well. [place] that infection due to underlying tinea pedis. Wound debrided. Wound culture grew Pseudomonas aeruginosa, resistant to ciprofloxacin and levofloxacin. 14 day course of IV antibiotics recommended - today is day # 9. Received IV piperacillin / tazobactam followed by meropenem. Transitioned to ceftazidime for once a day dosing and transition to outpatient therapy. (2) Tinea pedis: [place] that Pseudomonas infection due to underlying tinea pedis. Receiving topical terbinafine. Podiatry recommends considering 3 month course of oral Rx. Will defer oral Rx until completion of IV antibiotics. (3) Hypertension: Continue lisinopril. (4) Chronic pruritus: Receiving prednisone and hydroxyzine. Will need Derm f/u- already scheduled. (5) DVT prophylaxis: SQ enoxaparin. Ambulate. (6) Discharge planning issues: Anticipated discharge to home with home health services. Medical primary care follow-up to be determined. Culture results and recommendations of specialists discussed with patient and his daughter. Need for IV access at home explained; ultrasound-guided peripheral IV recommended. Daughter is a physician and can assist with home IV antibiotics. Will also need wound care from home health nurses. Need for close follow-up after discharge discussed. Patient feels that he can care for foot wound himself- not advised. He was hoping to see Dr. Solis for follow-up, but that would not be appropriate given absence of bone or joint involvement. Follow-up with Podiatry was recommended. Patient was seen by Dr. Brown during this hospital stay and follow-up with her was recommended. Admission and Anticipated Discharge Date Admission Date: December 13, 2019 Subjective Recheck for right foot infection and other problems. Patient seen in their room around 1400. Daughter visiting. Nurse Coordinator present to assist with discharge planning. Right foot feels better. No fever. Physical Exam Constitutional: no acute distress Cardiovascular: Extremities: no calf tenderness and no edema Musculoskeletal: Extremities: + extremities abnormal to inspection (ulcer plantar surface R foot, clean base, no erythema or drainage) Results & Data Results & Data ([facility]) Vital Signs (Past 12 Hours) Vital Signs Temp Pulse Resp BP Pulse Ox 12/22/19 16:44 36.7 C 65 18 108/73 97
[2019-12-23] MEDS: TERBINAFINE CR 30 GM TUBE EXT SCH (09:28)
[2019-12-23] MEDS: EUCERIN CR 120 GM JAR EXT SCH (09:28)
[2019-12-23] MEDS: lisinopril 10 MG TAB PO SCH (09:30)
[2019-12-23] MEDS: PANTOprazole 40 MG TAB PO SCH (09:30)
[2019-12-23] MEDS: oxyCODONE HCL IR 5 MG TAB (IMMEDIATE RELEASE) PO SCH (09:30)
[2019-12-23] MEDS: hydrOXYzine HCl 10 MG TAB PO SCH (09:30)
[2019-12-23] MEDS: FEXOFENADINE 60 MG TAB PO SCH (09:30)
[2019-12-23] MEDS: OMEGA-3 (PURIFIED FISH OIL) 1 GM CAP PO SCH (09:30)
[2019-12-23] MEDS: predniSONE 20 MG TAB PO SCH (09:30)
[2019-12-23] MEDS: ACETAMINOPHEN 500 MG TAB PO SCH (09:30)
[2019-12-23] MEDS: FINASTERIDE 5 MG TAB PO SCH (09:30)
--- NOTE | 2019-12-23 13:01 | Hospitalist Progress Note ---
Date of Service December 23, 2019 Assessment & Plan (1) Infection of right foot: Infection plantar surface right 3rd-5th toes / forefoot with associated cellulitis. No apparent osteomyelitis per recent MRI & CT. Vascular studies OK. Seen by Ortho, Wound Care, and Podiatry. ID consulted as well. [place] that infection due to underlying tinea pedis with subsequent bacterial cellulitis. Wound debrided. Wound culture grew Pseudomonas aeruginosa, resistant to ciprofloxacin and levofloxacin. 14 day course of IV antibiotics recommended. Received IV piperacillin / tazobactam followed by meropenem. Transitioned to ceftazidime for once daily dosing and transition to outpatient therapy. Ultrasound-guided peripheral IV placed for home IV antibiotic therapy. (2) Tinea pedis: [place] that Pseudomonas infection due to underlying tinea pedis. Receiving topical terbinafine. Podiatry recommended considering 3 month course of oral Rx. Will defer initiation of oral Rx until (1) completion of IV antibiotics (2) arrangements can be made for monitoring LFT's as outpatient. (3) Hypertension: Continue lisinopril. (4) Chronic pruritus: Chronic problem for past few years. Received prednisone and hydroxyzine. Will need Derm f/u- already scheduled. (5) DVT prophylaxis: SQ enoxaparin. Ambulate. (6) Discharge planning issues: Arrangements made for discharge to home with home health IV antibiotic therapy and wound care. Internal Medicine follow-up with Dr. Mar. Podiatry follow-up schedule with Dr. Brown. Dermatology appointments scheduled. Admission and Anticipated Discharge Date Admission Date: December 13, 2019 Subjective Recheck for right foot infection and other problems. Patient seen in their room around 1150. Feels well. Right foot pain & swelling much better. No fever. No cough or SOB. No chest pain. No nausea, vomiting, diarrhea. US-guided peripheral IV placed. Ready to go home. Physical Exam Constitutional: no acute distress Respiratory: no respiratory distress Auscultation: lungs clear to auscultation bilaterally Cardiovascular: Rate/Rhythm: regular rate and regular rhythm Vessels: no JVD Extremities: no calf tenderness and no edema Gastrointestinal (Abdomen): normal bowel sounds, soft, nontender, no hepatosplenomegaly Musculoskeletal: Extremities: + extremities abnormal to inspection (ulcer plantar surface R foot, clean base, no erythema or drainage) Skin: no rashes, warm and dry Psychiatric: Orientation: alert and oriented x 3 Results & Data Results & Data ([facility]) Vital Signs (Past 12 Hours) Vital Signs Temp Pulse Resp BP Pulse Ox 12/23/19 07:42 36.7 C 64 100/61 96 12/23/19 03:10 36.5 C 66 17 90/60 L 96
--- NOTE | 2019-12-23 20:51 | Discharge Summary ---
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 Patient is Greek-speaking and currently denies translation services. His family at bedside provides translation as well as patient speaks decent Palestinian. Initially wound started out as a, "crack to the palm of the foot." It continue to progress to open wound. He was referred to wound clinic by PCP and has recently underwent work- up for osteomyelitis. He had outpatient right foot MRI on 12/04/2019 which was negative for osteomyelitis. Due to worsening wound and concern for infection he did begin IV antibiotics with gentamicin x10 days. Outpatient wound culture on 11/27 grew Pseudomonas and Serratia. Both were sensitive to gentamicin, but patient unfortunately had no improvement. Subsequently he developed a generalized erythematous rash worse on his back. He has been using topical ointments as well as cold showers for relief. His wound continues to have drainage, increased pain and is foul-smelling. He was seen and evaluated by wound clinic yesterday who recommended patient to hospital for IV antibiotics and likely surgical debridement, but patient was very agitated and declined. Fortunately he did opt to seek treatment today. He denies any fever, chills, sweats, illness, dizziness, chest pain, shortness with, palpitations, nausea, vomiting, diarrhea, abdominal pain. Family member at bedside feels he has been more fatigued & decreased appetite but no known weight loss. He has not been using any treatment to the wound secondary to it causing pain. In ED patient made hemodynamically stable. Start on broad-spectrum IV antibiotics with daptomycin and Zosyn. Blood culture was obtained. CBC and CMP were generally unremarkable, mild elevation of glucose 129. Foot CT was again negative for bone involvement but likely suggestive of cellulitis. Principal Diagnosis foot ulcer + cellulitis right foot Discharge Data Allergies Allergy/AdvReac Type Severity Reaction Status Date / Time procaine Allergy Severe convulsions Verified 12/13/19 16:26 Consultations 12/13/19 16:31 ED Decision to Admit Stat 12/13/19 16:37 Consult Wound Care Provider Routine 12/13/19 18:50 Consult Case Management - Discharge Planning Routine 12/13/19 23:54 Consult Orthopedic Surgery Routine 12/16/19 08:46 Consult Infectious Diseases Routine 12/17/19 20:00 Consult Podiatry Routine Ordered Studies 12/13/19 14:47 CT foot RT wo con Stat 12/13/19 19:18 US ankle/brachial index comp Routine US venous doppler LE RT Routine Hospital Course (1) Infection of right foot: Admitted with infection plantar surface right 3rd-5th toes / forefoot with associated cellulitis. Failed outpatient management. No apparent osteomyelitis per recent MRI & CT. Vascular studies OK. Seen by Ortho, Wound Care, and Podiatry. ID consulted as well. [place]inton that infection due to underlying tinea pedis with subsequent bacterial cellulitis. Wound debrided. Wound culture grew Pseudomonas aeruginosa, resistant to ciprofloxacin and levofloxacin. 14 day course of IV antibiotics recommended. Received IV piperacillin / tazobactam followed by meropenem. Transitioned to ceftazidime for once daily dosing and transition to outpatient therapy. Ultrasound-guided peripheral IV placed for home IV antibiotic therapy. (2) Tinea pedis: [place]inton that Pseudomonas cellulitis due to underlying tinea pedis. Receiving topical terbinafine. Podiatry recommended considering 3 month course of oral therapy with terbinafine. Deferred initiation of oral Rx until (1) completion of IV antibiotics (2) arrangements can be made for monitoring LFT's as outpatient. (3) Hypertension: Continue lisinopril. (4) Chronic pruritus: Chronic problem for past few years. Received prednisone and hydroxyzine. Will need outpatient Dermatology follow-up. (5) DVT prophylaxis: SQ enoxaparin. Ambulate. (6) Discharge planning issues: Arrangements made for discharge to home with home health IV antibiotic therapy and wound care. Internal Medicine follow-up with Dr. Mar. Podiatry follow-up scheduled with Dr. Brown. Dermatology appointment scheduled. (Patient prefers not to receive further care at [facility].) Total Time Total Time Spent Total Time Spent (In Minutes): 35 Discharge Plan Discharge Items Patient Disposition: Home - Home Health Services Reason For Visit: infection right foot Discharge Diagnosis: infection right foot Condition on Discharge: Good Activity: As commented below Activity Comment: Avoid bearing weight directly on foot ulcer. Use special shoe. Non-emergency contact: Primary Care Provider and Surgeon Call non-emergency contact if: you have any medication questions, your symptoms worsen and your temperature is above 101 Follow-up/Referrals: Mitch Mar MD [Primary Care Provider] - (Date & Time 12/29/2019 11:20 AM Mitch Mar MD Department General Internal Medicine [facility] ) Savanna Brown DPM [Physician] - 01/03/20 3:45 pm ([facility] [place], [facility], [facility] [place] [address], [place] [address] ) Rudy Arshad MD [Physician] - (Please eval right foot wound; follow up 7- 10 days; possible severe athlete's foot infection, discuss treatment options wi th patient.) Diet: Heart Healthy Addtl Attending Provider Instructions: MEDICATION CHANGES: ceftazidime 2 grams intravenously daily for 5 more days terbinafine (Lamisil) cream apply to feet twice a day for fungal infection (atheletes foot) SUMMARY OF TEST RESULTS: Culture from foot wound grew Pseudomonas aeruginosa. CT scan of foot did not show any infection in the bone. Ankle-brachial index showed good blood flow to your feet. Ultrasound of right leg did not show any blood clots. RECOMMENDATIONS FOR FOLLOW-UP: Wound care and dressing changes as instructed by Wound Care Nursing. Home health nurses will come to your home to assist with antibiotic therapy and wound care. Please be certain to have intravenous catheter removed once you have finished taking the antibiotic. Terbinafine (Lamisil) pills may help prevent fungal infection of feet from recurring. It may cause problems with the liver, so it is necessary to monitor blood tests. Please discuss further with Podiatry and / or Dermatology. OTHER INSTRUCTIONS: Seek medical attention if you have: * temperature above 101 * chest pain or trouble breathing * abdominal pain, nausea, vomiting * diarrhea, dark stools or bloody stools * any unanswered questions or concerns Call 911 if symptoms are severe. Please take good care of yourself. Call if you have any questions or problems. You can reach a [facility] hospitalist on duty at [facility] 24 hours a day by calling [phone]. Pending Studies at Discharge: No Stand-Alone Forms: My [facility], Work/School Release (Inpt), Smoking Cessation Medications and DC Order Prescriptions: New Tazicef 2 gram recon soln 2 g IV DAILY Qty: 5 RF: 0 terbinafine HCl 1 % Cream 1 applic EXT BID Qty: 30 RF: 1 Continued omega-3 fatty acids [Fish Oil Concentrate] 1,000 mg capsule 1,000 mg PO DAILY RF: 0 finasteride 5 mg tablet 5 mg PO DAILY Qty: 90 RF: 1 sildenafil (pulm.hypertension) 20 mg tablet 20 mg PO DAILY PRN (Reason: sexual activity) Qty: 60 RF: 3 omeprazole 40 mg capsule,delayed release(DR/EC) 40 mg PO DAILY RF: 0 lisinopril 10 mg tablet 10 mg PO DAILY RF: 0 doxepin 10 mg capsule 10 mg PO HS RF: 0 Discontinued Santyl 250 unit/gram ointment 1 applic topical DAILY Qty: 90 RF: 1 Discharge Orders: Discharge Order (Routine); Ordered 12/23/19 Ordered By: Ti Mata Admission Data Admit Date/Time: 12/13/19 16:37 Attending Provider: Ti Mata Admit Provider: Danny Hahn Primary Care Provider: Mitch Mar Other Providers: Danny Hahn ; Pavan Lopez ; Pancho Solis ; Willy Manuel ; Lynn Baca ; Jewel Phelps I. ; Juan Jose Yancey II ; Lesvia Perdomo ; Iker Bhatt ; Savanna Brown ; [facility],Home Healthcare ; Louis Arvizu
== END 2019-12-23 14:48 | disposition home health service (06) | DRG 607 ==
LOC: ED 13:32 → SUATTDRO 16:37 → 2N 16:37

== ENCOUNTER 2023-11-25 15:06 | Observation (INO) ==
--- NOTE | 2023-11-25 15:44 | Emergency Department Note ---
Impression & Plan Dementia, Agitation, Arthritis of knee, left ED Provider Note NAME: KRISTIE VIGIL AGE: 83 SEX: M : 1940 ARRIVES VIA: Ambulance INFORMANT: Patient, EMS, the patient's daughter ED PROVIDER(S): Mihai David DO CHIEF COMPLAINT: Altered mental status HPI: The patient is a 83-year-old male who presented to the emergency department for an evaluation of altered mental status. The patient has a long history of dementia which is slowly been worsening. He has been more difficult to manage at home. He has caregivers that do check on him but recently they have started to not want to come and care for him because of his agitation. The patient is stopped taking his medications. He does complain of some left knee pain which is not new for him. He has a history of osteoarthritis. The patient had no reported fevers or falls. He went to see his family doctor today with his daughter and they were sent to the emergency department for admission for placement in a shelter. ROS: See above HPI for pertinent positives & negatives. A total of 10 systems reviewed and were otherwise negative. PAST MEDICAL HISTORY: See Below PAST SURGICAL HISTORY: See Below FAMILY HISTORY: See Below SOCIAL HISTORY: See Below HOME MEDICATIONS: See Below ALLERGIES: See Below VITALS: See Below PHYSICAL EXAMINATION: GENERAL: The patient is awake and alert. He is somewhat anxious and guarded. EYES: The conjunctivae are clear. The pupils are round and reactive. EARS, NOSE, MOUTH AND THROAT: The nose is without any evidence of any deformity. NECK: The neck is nontender and supple. RESPIRATORY: Normal respiratory effort is noted there is no evidence of wheezing rhonchi or rales CARDIOVASCULAR: Regular rate and rhythm noted there no murmurs rubs or gallops normal S1 normal S2. GASTROINTESTINAL: The abdomen is soft. Abdomen is nontender. MUSCULOSKELETAL/EXTREMITIES: There is no evidence of gross deformity full range of motion is noted in the hips and shoulders. SKIN: There is no obvious evidence of any rash. There are no petechiae, pallor or cyanosis noted. NEUROLOGIC: Patient is awake alert and oriented to person and place but not time. The patient ambulates well. MEDICAL DECISION MAKING: The patient is an 83-year-old male who presented to the emergency department with his daughter by ambulance directly from the primary care physician's office. The patient has a history of underlying dementia. The patient has been having more agitation. He stopped taking his medications. His daughter took him to the family doctor's office today and hopes that she can get some help. They do not feel the patient is safe at home and the patient was sent to the emergency department for an evaluation as well as possible placement. I discussed patient's laboratory and radiographic studies with him and his daughter. No definite cause for the patient's agitation or new change in behavior could be found from a medical standpoint. I will discuss this case with the on-call [facility] hospitalist. Triage Nursing notes reviewed. Prior medical records reviewed Vital Signs: reviewed and remarkable for elevated pressure. Differential diagnosis: Infection, hypoglycemia, electrolyte abnormalities, overdose, toxicologic, cardiac sources, intracerebral event, neurologic, trauma, as well as other pathologies. ER treatment provided: See below Diagnostics interpreted by me: ECG: EKG was obtained in the emergency department. My interpretation is normal sinus rhythm at 84 bpm. There is no ectopy. There is no acute ST segment abnormalities noted. This was compared to a tracing from September 17, 2023. No changes were noted. Cardiac Monitoring: An order was placed for continuous cardiac monitoring. The monitor shows a rate of 80 bpm with sinus rhythm. Laboratory studies: As stated above and show below. Imaging studies: See below. Radiographic imaging was reviewed by myself Consultation(s): I discussed this case with Dr Phelps who was salesperson florist supplies for the [place] hospitalist group. Past Med/Surg History Problem List Arthritis of knee, left (Acute) Agitation (Acute) Dementia (Acute) Chronic pain Myofascial pain Bilateral primary osteoarthritis of knee Chronic pruritus Tinea pedis Infection of right foot (Acute) Cellulitis (Acute) GERD (gastroesophageal reflux disease) Hypertension Dyslipidemia Pulmonary hypertension Non-healing ulcer of right foot (Acute) Medical History History of colon cancer Rectosigmoid junction BPH (benign prostatic hyperplasia) Surgical History History of colon resection History of colonoscopy with polypectomy Family History Other Hypertension Social History Smoking Status: Unknown if ever smoked Hx Alcohol Use: Yes Alcohol type: hard liquor Hx Substance Use: No Preferred Language: Slovenian Communication Ability: Effective Communication Ability Comment: daughter translates, refuses translation services Communication Tools: Facial Expression Casual Shoe Inspector Required: Yes and Voice Beliefs That Will Affect Care: None Current Living Situation: Spouse Current Living Situation Comment: Domestic partner Feels Safe at Home: Yes Assistive Devices: Special Shoe Allergies Allergies Allergy/AdvReac Type Severity Reaction Status Date / Time procaine Allergy Severe convulsions Verified 11/25/23 20:16 Home Meds Home Medications Medication Instructions Recorded Confirmed duloxetine 30 mg capsule,delayed 30 mg PO DAILY 03/11/23 11/25/23 release metformin 500 mg tablet 500 mg PO DAILY 03/11/23 11/25/23 donepezil 5 mg disintegrating 5 mg PO . Q EVENING & HS 11/25/23 11/25/23 tablet silver sulfadiazine 1 % topical 1 applic topical DAILY 11/25/23 11/25/23 cream simvastatin 40 mg tablet 40 mg PO HS 11/25/23 11/25/23 triamcinolone acetonide 0.1 % 1 applic topical DAILY 11/25/23 11/25/23 topical cream Previous Rx's Medication Instructions Recorded finasteride 5 mg tablet 5 mg PO DAILY #90 tabs 01/02/20 lisinopril 10 mg tablet 10 mg PO DAILY #90 tabs 01/02/20 omeprazole 40 mg capsule,delayed 40 mg PO DAILY #90 caps 01/02/20 release Results & Data (ED) Vital Signs Vital Signs - 24 hr 11/25/23 15:15 11/25/23 17:00 11/25/23 17:00 Temperature 36.7 C Temperature Source Oral Pulse Rate 77 Pulse Rate [Finger] 79 Pulse Rhythm [Finger] Pulse Strength [Finger] Respiratory Rate 18 18 Respiratory Effort / Characteristics Respiratory Depth Blood Pressure 155/92 H Blood Pressure [Right Arm] 142/60 H Blood Pressure Mean 113 Blood Pressure Mean [Right Arm] 87 Blood Pressure Position [Right Arm] Pulse Oximetry 95 95 Oxygen Delivery Method Room Air Room Air Room Air Sepsis Recent Fever Within 48 Hours No Sepsis New/Unexplained Change in Mental Status No Sepsis Action Taken by Nursing No Action Required 11/25/23 18:08 11/25/23 19:56 Temperature Temperature Source Pulse Rate 70 Pulse Rate [Finger] 86 Pulse Rhythm [Finger] Regular Pulse Strength [Finger] Normal Respiratory Rate 20 Respiratory Effort / Characteristics Non-Labored Spontaneous Respiratory Depth Normal Blood Pressure Blood Pressure [Right Arm] 124/72 Blood Pressure Mean Blood Pressure Mean [Right Arm] 89 Blood Pressure Position [Right Arm] Lying Pulse Oximetry Oxygen Delivery Method Room Air Sepsis Recent Fever Within 48 Hours Sepsis New/Unexplained Change in Mental Status Sepsis Action Taken by [facility] Medications Current Medication List: was personally reviewed by me Laboratory Data Attestation: I reviewed the patient's lab results. 11/25/23 17:28 11/25/23 17:28 Lab Results 11/25/23 Range/Units 17:28 WBC 7.74 (4.8-10.8) K/ul RBC 5.37 (4.70-6.10) M/uL Hgb 15.2 (14.0-18.0) g/dl Hct 43.5 (42.0-52.0) % MCV 81.0 (80.0-100.0) fL MCH 28.3 (25.0-34.0) pg MCHC 34.9 (32.0-36.0) g/dL RDW Std Deviation 39.1 (36.4-46.3) fL RDW Coeff of Ed 13.2 (11.5-14.5) % Plt Count 210 (130-400) K/uL MPV 9.8 (9.4-12.4) fL Immature Gran % (Auto) 0.3 % Neut % (Auto) 70.6 % Lymph % (Auto) 17.4 % Callahan % (Auto) 8.0 % Eos % (Auto) 3.2 % Baso % (Auto) 0.5 % Neut # (Auto) 5.46 (1.40-6.50) K/uL Lymph # (Auto) 1.35 (1.20-3.40) K/uL Callahan # (Auto) 0.62 H (0.11-0.59) K/uL Eos # (Auto) 0.25 (0.00-0.50) K/uL Baso # (Auto) 0.04 (0.00-0.20) K/uL Immature Gran # (Auto) 0.02 (0.01-0.20) K/uL Sodium 139 (136-145) mmol/L Potassium 4.2 (3.5-5.1) mmol/L Chloride 106 (98-107) mmol/L Carbon Dioxide 25 (21-32) mmol/L Anion Gap 8 (3-11) BUN 20 (6-23) mg/dl Creatinine 0.95 (0.6-1.4) mg/dl Est Cr Clr Drug Dosing 53.0 ml/min eGFR 78.44 BUN/Creatinine Ratio 21.1 H (10-20) Glucose 121 H (70-99(Fasting)) mg/dl Calcium 9.3 (8.6-10.3) mg/dl Magnesium 2.0 (1.7-2.4) mg/dl Total Bilirubin 0.7 (0.2-1.0) mg/dl AST 18 (13-39) U/L ALT 23 (7-52) U/L Alkaline Phosphatase 65 (34-104) U/L Total Creatine Kinase 149 (30-223) U/L Troponin I High Sens 5.8 (0-20) pg/ml Total Protein 6.5 (6.0-8.3) gm/dl Albumin 4.2 (3.4-5.0) gm/dl Globulin 2.3 L (2.5-4.0) gm/dl Albumin/Globulin Ratio 1.8 (0.9-2) TSH 4.963 H (0.300-4.500) uIu/ml Free T4 0.55 L (0.61-1.60) ng/dl Administered Medications Discontinued Medications Haloperidol Lactate (Haloperidol Lactate 5 Mg/Ml 1 Ml Vial) 5 mg IM NOW STA Stop: 11/25/23 15:33 Last Admin: 11/25/23 15:50 Dose: 5 mg Documented By: STEFFENK Haloperidol Lactate (Haloperidol Lactate 5 Mg/Ml 1 Ml Vial) 5 mg IM NOW STA Stop: 11/25/23 16:01 Last Admin: 11/25/23 16:12 Dose: 5 mg Documented By: AIME Haloperidol Lactate (Haloperidol Lactate 5 Mg/Ml 1 Ml Vial) 5 mg IM NOW STA Stop: 11/25/23 19:00 Last Admin: 11/25/23 19:19 Dose: 5 mg Documented By: [facility] Lorazepam (Lorazepam 1 Mg/1 Ml Syr Ed Inj Use) 1 mg IM ONE STA Stop: 11/25/23 15:33 Last Admin: 11/25/23 15:50 Dose: 1 mg Documented By: AIME Lorazepam (Lorazepam 2 Mg/1 Ml Vial) 1 mg IM NOW STA Stop: 11/25/23 16:01 Last Admin: 11/25/23 16:12 Dose: 1 mg Documented By: AIME Imaging Data Attestation: I personally reviewed and interpreted this imaging study as follows: My Impression: 1 view x-ray was obtained in the emergency department. My interpretation is no free air or definite infiltrate, final report below. CT of the head was obtained in the emergency department. My interpretation is no intracranial hemorrhage or mass effect, final report below. Radiologist's Impression: Chest X-Ray 11/25/23 15:32 XR chest 1V portable CLINICAL HISTORY: weakness COMPARISON STUDY: Chest radiograph September 17, 2023. FINDINGS: There is no pneumothorax or pleural effusion. Cardiomegaly is unchanged. There is no evidence for pulmonary edema. No consolidation is identified to suggest pneumonia. IMPRESSION: No acute cardiopulmonary findings. Stable cardiomegaly. ACT 112: Negative or not required by law. Electronically signed by: Kristofer Reyes M.D. 11/25/2023 5:[address] 11/25/23 15:32 CT OF THE HEAD WITHOUT CONTRAST CLINICAL HISTORY: Altered mental status. COMPARISON STUDY: MRI of the brain May 24, 2020. CT DOSE: 703.85 mGy.cm TECHNIQUE: Helical axial images of the head were obtained without IV contrast. Automated exposure control was utilized for the study. A dose lowering technique was utilized adhering to the principles of ALARA. FINDINGS: No acute intracranial hemorrhage, midline shift or mass effect is present. The ventricular system is unremarkable. The basal cisterns are patent. No extra-axial collections are present. There are no findings to suggest acute dural sinus thrombosis or acute territorial infarct. An 8 mm hypodensity within the right basal ganglia is unchanged. There are no calvarial fractures. There is mild ethmoid sinus mucosal thickening. IMPRESSION: No acute intracranial findings. ACT 112: Negative or not required by law. Electronically signed by: Kristofer Reyes M.D. 11/25/2023 6:04 PM Knee X-Ray 11/25/23 15:32 XR knee LT 1 or 2V routine CLINICAL HISTORY: Left knee pain. COMPARISON: Left knee radiographs March 07, 2021. FINDINGS: Alignment of the left knee is anatomic. There are no fractures. There are no osseous lesions. There is a trace joint effusion. Mild to moderate lateral patellofemoral compartment osteoarthritis is present. IMPRESSION: 1. No fractures within the left knee. Trace left knee joint effusion. 2. Mild to moderate lateral and patellofemoral compartment osteoarthritis. ACT 112: Negative or not required by law. Electronically signed by: Kristofer Reyes M.D. 11/25/2023 5:58 PM Discharge Plan Visit Data Chief Complaint: Illness Stated Complaint: DECLINE IN HEALTH, AGITATION ED Provider: Mihai David Discharge Problem: Dementia, Agitation, Arthritis of knee, left Patient Disposition: Being Evaluated by Hospitalist Forms Stand Alone Forms: [facility], Important Visit Information Prescriptions Prescriptions: No Action metformin 500 mg tablet 500 mg PO DAILY Rx Instructions: TAKE WITH FOOD duloxetine 30 mg capsule,delayed release(DR/EC) 30 mg PO DAILY finasteride 5 mg tablet 5 mg PO DAILY Qty: 90 0RF lisinopril 10 mg tablet 10 mg PO DAILY Qty: 90 0RF omeprazole 40 mg capsule,delayed release(DR/EC) 40 mg PO DAILY Qty: 90 0RF silver sulfadiazine 1 % cream 1 applic TOPICAL DAILY triamcinolone acetonide 0.1 % cream 1 applic TOPICAL DAILY simvastatin 40 mg tablet 40 mg PO HS donepezil 5 mg tablet,disintegrating 5 mg PO . Q EVENING & HS Referrals Referrals: Deepthi Rosas PA-C [Primary Care Provider] - Discharge Problem: Dementia Qualifiers: Dementia type: unspecified type Dementia severity: unspecified severity D ementia behavioral or psychological symptom: unspecified whether behavioral, psychotic, or mood disturbance or anxiety Qualified Code(s): F03.90 - Unspecified dementia, unspecified severity, without behavioral disturbance, psychotic disturbance, mood disturbance, and anxiety
[2023-11-25] MEDS: HALOPERIDOL LACTATE 5 MG/ML 1 ML VIAL IM STA ×3 (15:50→19:19)
[2023-11-25] MEDS: LORazepam 1 MG/1 ML SYR ED Inj Use IM STA (15:50)
[2023-11-25] MEDS: LORazepam 2 MG/1 ML VIAL IM STA (16:12)
[2023-11-25 17:51] LABS: Basophils # (auto) 0.04 K/uL (0.00-0.20); Basophils % (auto) 0.5 %; Eosinophils # (auto) 0.25 K/uL (0.00-0.50); Eosinophils % (auto) 3.2 %; Hematocrit (blood only) 43.5 % (42.0-52.0); Hemoglobin 15.2 g/dl (14.0-18.0); Immature Granulocytes # (auto) 0.02 K/uL (0.01-0.20); Immature Granulocytes % (auto) 0.3 %; Lymphocytes # (auto) 1.35 K/uL (1.20-3.40); Lymphocytes % (auto) 17.4 %; Mean Corpuscular Hemoglobin 28.3 pg (25.0-34.0); Mean Corpuscular Hgb Conc 34.9 g/dL (32.0-36.0); Mean Platelet Volume 9.8 fL (9.4-12.4); Monocytes # (auto) 0.62 K/uL (0.11-0.59); Neutrophils # (auto) 5.46 K/uL (1.40-6.50); Neutrophils % (auto) 70.6 %; Platelet Count 210 K/uL (130-400); RDW Coefficient of Variation 13.2 % (11.5-14.5); RDW Standard Deviation 39.1 fL (36.4-46.3); Red Blood Count 5.37 M/uL (4.70-6.10); White Blood Count 7.74 K/ul (4.8-10.8)
--- NOTE | 2023-11-25 17:57 | XRay Report ---
XR chest 1V portable CLINICAL HISTORY: weakness COMPARISON STUDY: Chest radiograph September 17, 2023. FINDINGS: There is no pneumothorax or pleural effusion. Cardiomegaly is unchanged. There is no eviden ce for pulmonary edema. No consolidation is identified to suggest pneumonia. IMPRESSION: No acute cardiopulmonary findings. Stable cardiomegaly. ACT 112: Negative or not required by law. Electronically signed by: Kristofer Reyes M.D. 11/25/2023 5:56 PM
--- NOTE | 2023-11-25 17:59 | XRay Report ---
XR knee LT 1 or 2V routine CLINICAL HISTORY: Left knee pain. COMPARISON: Left knee radiographs March 07, 2021. FINDINGS: Alignment of the left knee is anatomic. There are no fractures. There are no osseous lesio ns. There is a trace joint effusion. Mild to moderate lateral patellofemoral compartment osteoarthrit is is present. IMPRESSION: 1. No fractures within the left knee. Trace left knee joint effusion. 2. Mild to moderate lateral and patellofemoral compartment osteoarthritis. ACT 112: Negative or not required by law. Electronically signed by: Kristofer Reyes M.D. 11/25/2023 5:58 PM
--- NOTE | 2023-11-25 18:06 | CT Scan Report ---
CT OF THE HEAD WITHOUT CONTRAST CLINICAL HISTORY: Altered mental status. COMPARISON STUDY: MRI of the brain May 24, 2020. CT DOSE: 703.85 mGy.cm TECHNIQUE: Helical axial images of the head were obtained without IV contrast. Automated exposure con trol was utilized for the study. A dose lowering technique was utilized adhering to the principles o f ALARA. FINDINGS: No acute intracranial hemorrhage, midline shift or mass effect is present. The ventricular system is unremarkable. The basal cisterns are patent. No extra-axial collections are present. There are no findings to suggest acute dural sinus thrombosis or acute territorial infarct. An 8 mm hypoden sity within the right basal ganglia is unchanged. There are no calvarial fractures. There is mild eth moid sinus mucosal thickening. IMPRESSION: No acute intracranial findings. ACT 112: Negative or not required by law. Electronically signed by: Kristofer Reyes M.D. 11/25/2023 6:04 PM
[2023-11-25 18:07] LABS: Albumin Globulin Ratio 1.8 (0.9-2); Albumin Level 4.2 gm/dl (3.4-5.0); BUN Creatinine Ratio 21.1 (10-20); Bilirubin,Total 0.7 mg/dl (0.2-1.0); Calcium 9.3 mg/dl (8.6-10.3); Globulin 2.3 gm/dl (2.5-4.0); Potassium 4.2 mmol/L (3.5-5.1); Total Protein 6.5 gm/dl (6.0-8.3)
[2023-11-25 18:11] LABS: Troponin I High Sensitivity 5.8 pg/ml (0-20)
[2023-11-25 18:20] LABS: Thyroid Stimulating Hormone 4.963 uIu/ml (0.300-4.500)
[2023-11-25 18:57] LABS: T4 Free Thyroxine 0.55 ng/dl (0.61-1.60)
--- NOTE | 2023-11-25 20:14 | History & Physical Report ---
Date of Service November 25, 2023 Assessment & Plan (1) Agitation: Plan: 83yo male with history of dementia presents with 1 month of progressively worsening symptoms. Patient presently lives alone. Exam and workup largely unremarkable, patient is inattentive and distracted, question acute delirium in addition to dementia vs progression of dementia. Laboratory and imaging with no obvious abnormalities. Patient has not been taking his medications reliably at home - question Cymbalta withdrawal contributing to agitation and other symptoms. Possible pain contributing as well - patient mentions knee pain. -Admit to medical -UA and UTox ordered -One to one observational care as needed -Haldol 5mg IM as needed for agitation competitive with care -Tylenol 1gm PO TID scheduled for now to address possible pain -Resume home medications - Cymbalta and Aricept (2) Dementia: Plan: Noted. Consider acute delirium vs progression of dementia to account for patient's increased agitation -Frequent orientation, delirium prevention strategies -Haldol IM as needed for agitation competitive with care -PT/OT evaluation (3) GERD (gastroesophageal reflux disease): Plan: Chronic. Stable -Protonix 40mg po daily (4) Hypertension: Plan: Blood pressure WNL -Hold Lisinopril -Monitor (5) Dyslipidemia: Plan: Chronic -Hold Simvastatin History of Present Illness Chief Complaint: confusion, agitation Primary Care Provider: Deepthi Ralph Chavira is an 83yo male with history of dementia, HTN, HLP, GERD presenting with progressive agitation. Patient is confused at present - history obtained through chart review, discussion with ER staff and discussion with patient's daughter Barbra Hernandez ([phone]). Daughter reports that patient has longstanding history of dementia with progressive worsening over the last several months. He presently lives alone at [facility]. He has some caregivers and home health nurses that assist him. Overall he has become more difficult to manage at home. Daughter has been receiving frequent calls from the social media sr strategy manager that patient is wandering about the complex in various stages of undress, agitations, bothering his neighbors and increasingly difficult to redirect. He has been resistant to seeing doctors and has stopped taking all of his medications several days ago. His caregivers have not been coming in due to his worsening agitation. Patient complains of some joint pain, specifically focused on his right knee. Otherwise offers no complaints - denies chest pain, cough, SOB, abdominal pain, nausea, vomiting or diarrhea. In the ER he is afebrile, HD stable Agitated requiring multiple rounds of Haldol ER Course: Haldol 5mg IM x 3 doses Ativan 1mg IM Allergies Allergy/AdvReac Type Severity Reaction Status Date / Time procaine Allergy Severe convulsions Verified 11/25/23 20:16 Home Medications Medication Instructions Recorded Confirmed Type finasteride 5 mg tablet 5 mg PO DAILY #90 tabs 01/02/20 11/25/23 Rx lisinopril 10 mg tablet 10 mg PO DAILY #90 tabs 01/02/20 11/25/23 Rx omeprazole 40 mg capsule,delayed 40 mg PO DAILY #90 caps 01/02/20 11/25/23 Rx release duloxetine 30 mg capsule,delayed 30 mg PO DAILY 03/11/23 11/25/23 History release metformin 500 mg tablet 500 mg PO DAILY 03/11/23 11/25/23 History donepezil 5 mg disintegrating 5 mg PO . Q EVENING & HS 11/25/23 11/25/23 History tablet silver sulfadiazine 1 % topical 1 applic topical DAILY 11/25/23 11/25/23 History cream simvastatin 40 mg tablet 40 mg PO HS 11/25/23 11/25/23 History triamcinolone acetonide 0.1 % 1 applic topical DAILY 11/25/23 11/25/23 History topical cream Past Med/Surg History Problem List Arthritis of knee, left (Acute) Agitation (Acute) Dementia (Acute) Chronic pain Myofascial pain Bilateral primary osteoarthritis of knee Chronic pruritus Tinea pedis Infection of right foot (Acute) Cellulitis (Acute) GERD (gastroesophageal reflux disease) Hypertension Dyslipidemia Pulmonary hypertension Non-healing ulcer of right foot (Acute) Medical History History of colon cancer Rectosigmoid junction BPH (benign prostatic hyperplasia) Surgical History History of colon resection History of colonoscopy with polypectomy Family History Other Hypertension Social History Smoking Status: Unknown if ever smoked Hx Alcohol Use: Yes Alcohol type: hard liquor Hx Substance Use: No Preferred Language: Emirati Communication Ability: Effective Communication Ability Comment: daughter translates, refuses translation services Communication Tools: Facial Expression Head Teacher Required: Yes and Voice Beliefs That Will Affect Care: None Current Living Situation: Spouse Current Living Situation Comment: Domestic partner Feels Safe at Home: Yes Assistive Devices: Special Shoe Review of Systems Review of Systems: All systems reviewed & are unremarkable except as noted in HPI & below Physical Exam Physical Exam: General: patient mildly agitated in bed, restless, trying to climb out at times Skin: warm, dry, intact, no rashes or lesions HEENT: NC/AT, PERRL, anicteric sclera, conjunctiva without injection, external ear normal to inspection and nontender, nares patent, moist mucus membranes, dentition intact, no oropharyngeal lesions, neck supple, trachea midline, no LAD, no thyromegaly, no JVD Heart: +S1/S2, regular, no m/r/g Lungs: equal air entry bilaterally, no rales/rhonchi/wheezes Abd: +BS, soft, NT/ND, no masses/organomegaly/ascites Ext: warm, 2+ pulses in UE/LE bilaterally, no clubbing/cyanosis or edema, no redness or swelling of right knee, no anterior or posterior laxity, no point tenderness of medial or lateral joint space Neuro: patient confused, predominantly Emirati speaking, does not full answer questions, follows some commands Is not easily directable at this time. Results & Data Results & Data Vital Signs (Past 12 Hours) Vital Signs Temp Pulse Pulse Resp BP BP Pulse Ox 11/25/23 19:56 86 20 124/72 11/25/23 18:08 70 11/25/23 17:00 11/25/23 17:00 79 18 142/60 H 95 11/25/23 15:15 36.7 C 77 18 155/92 H 95 O2 Del Method 11/25/23 19:56 Room Air 11/25/23 18:08 11/25/23 17:00 Room Air 11/25/23 17:00 Room Air 11/25/23 15:15 Room Air Laboratory Results Laboratory Results WBC 7.74 K/ul (4.8-10.8) 11/25/23 17: RBC 5.37 M/uL (4.70-6.10) 11/25/23 17:28 Hgb 15.2 g/dl (14.0-18.0) 11/25/23 17: Hct 43.5 % (42.0-52.0) 11/25/23 17: MCV 81.0 fL (80.0-100.0) 11/25/23 17: MCH 28.3 pg (25.0-34.0) 11/25/23 17: MCHC 34.9 g/dL (32.0-36.0) 11/25/23 17: RDW Std Deviation 39.1 fL (36.4-46.3) 11/25/23 17: RDW Coeff of Ed 13.2 % (11.5-14.5) 11/25/23 17: Plt Count 210 K/uL (130-400) 11/25/23 17: MPV 9.8 fL (9.4-12.4) 11/25/23 17: Immature Gran % (Auto) 0.3 % 11/25/23 17: Neut % (Auto) 70.6 % 11/25/23 17: Lymph % (Auto) 17.4 % 11/25/23 17:28 [place] % (Auto) 8.0 % 11/25/23 17: Eos % (Auto) 3.2 % 11/25/23 17: Baso % (Auto) 0.5 % 11/25/23 17: Neut # (Auto) 5.46 K/uL (1.40-6.50) 11/25/23 17: Lymph # (Auto) 1.35 K/uL (1.20-3.40) 11/25/23 17: [place] # (Auto) 0.62 K/uL (0.11-0.59) H 11/25/23 17:28 Eos # (Auto) 0.25 K/uL (0.00-0.50) 11/25/23 17: Baso # (Auto) 0.04 K/uL (0.00-0.20) 11/25/23 17:28 Immature Gran # (Auto) 0.02 K/uL (0.01-0.20) 11/25/23 17:28 Sodium 139 mmol/L (136-145) 11/25/23 17:28 Potassium 4.2 mmol/L (3.5-5.1) 11/25/23 17:28 Chloride 106 mmol/L (98-107) 11/25/23 17:28 Carbon Dioxide 25 mmol/L (21-32) 11/25/23 17:28 Anion Gap 8 (3-11) 11/25/23 17:28 BUN 20 mg/dl (6-23) 11/25/23 17:28 Creatinine 0.95 mg/dl (0.6-1.4) 11/25/23 17:28 Est Cr Clr Drug Dosing 53.0 ml/min 11/25/23 17:28 eGFR 78.44 11/25/23 17:28 BUN/Creatinine Ratio 21.1 (10-20) H 11/25/23 17:28 Glucose 121 mg/dl (70-99(Fasting)) H 11/25/23 17:28 Calcium 9.3 mg/dl (8.6-10.3) 11/25/23 17:28 Magnesium 2.0 mg/dl (1.7-2.4) 11/25/23 17:28 Total Bilirubin 0.7 mg/dl (0.2-1.0) 11/25/23 17:28 AST 18 U/L (13-39) 11/25/23 17:28 ALT 23 U/L (7-52) 11/25/23 17:28 Alkaline Phosphatase 65 U/L (34-104) 11/25/23 17:28 Total Creatine Kinase 149 U/L (30-223) 11/25/23 17:28 Troponin I High Sens 5.8 pg/ml (0-20) 11/25/23 17:28 Total Protein 6.5 gm/dl (6.0-8.3) 11/25/23 17:28 Albumin 4.2 gm/dl (3.4-5.0) 11/25/23 17:28 Globulin 2.3 gm/dl (2.5-4.0) L 11/25/23 17:28 Albumin/Globulin Ratio 1.8 (0.9-2) 11/25/23 17:28 TSH 4.963 uIu/ml (0.300-4.500) H 11/25/23 17:28 Free T4 0.55 ng/dl (0.61-1.60) L 11/25/23 17:28 Impressions Chest X-Ray 11/25/23 15:32 XR chest 1V portable CLINICAL HISTORY: weakness COMPARISON STUDY: Chest radiograph September 17, 2023. FINDINGS: There is no pneumothorax or pleural effusion. Cardiomegaly is unchanged. There is no evidence for pulmonary edema. No consolidation is identified to suggest pneumonia. IMPRESSION: No acute cardiopulmonary findings. Stable cardiomegaly. ACT 112: Negative or not required by law. Electronically signed by: Kristofer Reyes M.D. 11/25/2023 5:[address] 11/25/23 15:32 CT OF THE HEAD WITHOUT CONTRAST CLINICAL HISTORY: Altered mental status. COMPARISON STUDY: MRI of the brain May 24, 2020. CT DOSE: 703.85 mGy.cm TECHNIQUE: Helical axial images of the head were obtained without IV contrast. Automated exposure control was utilized for the study. A dose lowering technique was utilized adhering to the principles of ALARA. FINDINGS: No acute intracranial hemorrhage, midline shift or mass effect is present. The ventricular system is unremarkable. The basal cisterns are patent. No extra-axial collections are present. There are no findings to suggest acute dural sinus thrombosis or acute territorial infarct. An 8 mm hypodensity within the right basal ganglia is unchanged. There are no calvarial fractures. There is mild ethmoid sinus mucosal thickening. IMPRESSION: No acute intracranial findings. ACT 112: Negative or not required by law. Electronically signed by: Kristofer Reyes M.D. 11/25/2023 6:04 PM Knee X-Ray 11/25/23 15:32 XR knee LT 1 or 2V routine CLINICAL HISTORY: Left knee pain. COMPARISON: Left knee radiographs March 07, 2021. FINDINGS: Alignment of the left knee is anatomic. There are no fractures. There are no osseous lesions. There is a trace joint effusion. Mild to moderate lateral patellofemoral compartment osteoarthritis is present. IMPRESSION: 1. No fractures within the left knee. Trace left knee joint effusion. 2. Mild to moderate lateral and patellofemoral compartment osteoarthritis. ACT 112: Negative or not required by law. Electronically signed by: Kristofer Reyes M.D. 11/25/2023 5:58 PM ECG Additional Comments: EKG per my interpretation with NSR at 84bpm, sonali laxis, FI=972, QRS=84, KOd=215, no acute ischemic changes PG Care Time/CCT Total # of Minutes Spent Total Time Spent with Patient: Total time spent is greater than 50% in coordination of care (as documented) at patient's floor/unit and/or counseling patient: Coding Level of Care Code 48690 INT INP/OBS CARE 2/55MIN Diagnoses Agitation R45.1 Dementia F03.90 Dementia behavioral or psychological symptom: unspecified whether behavioral, psychotic, or mood disturbance or anxiety Dementia severity: unspecified severity Dementia type: unspecified type GERD (gastroesophageal reflux disease) K21.9 Hypertension I10 Dyslipidemia E78.5 (2) Dementia Dementia behavioral or psychological symptom: unspecified whether behavioral, psychotic, or mood disturbance or anxiety Dementia severity: unspecified severity Dementia type: unspecified type Qualified Code(s): F03.90 - Unspecified dementia, unspecified severity, without behavioral disturbance, psychotic disturbance, mood disturbance, and anxiety
[2023-11-25] MEDS ORDERED: HALOPERIDOL LACTATE 5 MG/ML 1 ML VIAL IM PRN (23:07)
[2023-11-26] MEDS: DULoxetine HCL 30 MG CAP PO STA (00:13)
[2023-11-26] MEDS: ACETAMINOPHEN 500 MG TAB PO SCH (00:14)
[2023-11-26] MEDS: DONEPEZIL HCL 10 MG TAB PO SCH (00:29)
--- OUTSIDE RECORDS SUMMARY | 2023-11-26 07:08 | External Medical Summary | Summary of Care ---
Author Name Unknown Organization [facility] Address [address] [place] [address] Phone [phone] Care Team Providers Care Actuarial Analyst Name Role Phone Mitch Mar MD Primary Care Provider + Reason for Visit * Reason Onset Date Comments Health Maintenance 10/04/2023 Encounter Details Date Type Department Care Team (Late st Contact Info) Description 10/04/2023 Telephone General Internal Medicine [facility] [address] [facility] [place] [address] Mitch Mar MD [address] [facility] [place] [address] Health Maintenance Allergies Active Allergy Reactions Criticality Noted Date Comments Lidocaine Hcl 02/07/2010 Pt reports rxn to lidocaine documented as of this encounter (statuses as of 10/04/2023) Medications Medication Sig Dispensed Refills Start Date End Date Status TYLENOL 325 MG PO TABS 2 tablets every 6 hours as needed for fever Active finasteride (PROSCAR) 5 MG Tablet Take 5 mg by mouth daily. Take 5 mg by mouth daily. 1 05/31/2017 Active Terbinafine HCl 1 % External Cream (LamISIL AT ATHLETE'S FOOT) Apply topically to affected area 2 times a day. 30 g 12/29/2019 Active Lisinopril 10 MG Oral Tablet (PRINIVIL)Indications: HTN, goal below 140/90 Take 1 Tab by mouth daily. 90 Tab 3 01/01/2020 Active Additional Information Patient taking differently:10 mg Oral Daily(AM),Indications: in AM, Informant: Child, Reported on 01/24/2021 Sildenafil Citrate 20 MG Oral Tablet (REVATIO)Indications:E rectile dysfunction, unspecified erectile dysfunction type Please take 2 tablets 1-4 hours prior intercourse. No more then 2 tablets in 24 hours. 30 Tab 1 01/02/2020 Active Additional Information Patient not taking.Informant: Child, Reported on 10/24/2020 Omeprazole 40 MG Oral Capsule Delayed Release (PriLOSEC)Indications: Esophageal reflux take one capsule by mouth 1 hour before breakfast 90 Cap 1 08/29/2020 Active Doxepin HCl 10 MG Oral Capsule (SINEquan)Indications: Itching Take 2 Caps by mouth at bedtime. 60 Cap 4 09/27/2020 Active hydrOXYzine HCl 25 MG Oral TabletIndications:Gene ralized pruritus Take 1 Tab by mouth at bedtime. 90 Tab 10/24/2020 Active Additional Information Patient taking differently:25 mg Oral HS,Indications: as needed, Reported on 01/24/2021 Grezc-4-adid Ethyl Esters 1 GM Oral CapsuleIndications:Mix ed hyperlipidemia Take 1 Cap by mouth 2 times a day. 180 Cap 3 10/24/2020 Active Gabapentin 300 MG Oral Capsule (Neurontin)Indications :Generalized pruritus 300 mg by mouth once at night for a week then Increase gabapentin to 300 mg twice a day for one week then increase to three times a day after 90 Cap 1 10/24/2020 Active Simvastatin 40 MG Oral Tablet (Zocor)Indications:Mix ed hyperlipidemia Take 1 Tab by mouth every night at bedtime. 30 Tab 5 10/31/2020 Active metFORMIN HCl 500 MG Oral Tablet (Glucophage) Take 500 mg by mouth daily. Active documented as of this encounter (statuses as of 10/04/2023) Active Problems Problem Noted Date Diagnosed Date History of cellulitis 10/30/2020 Overview: Right foot Prediabetes 10/28/2020 Memory loss 10/24/2020 Ulcer of right foot with fat layer exposed 02/26 Mixed hyperlipidemia 12/29/2019 Diastolic dysfunction 03/10/2019 History of malignant neoplasm of rectosigmoid ju nction 10/14/2018 BPH with obstruction/lower urinary tract symptom s 09/10/2017 Thoracic aortic aneurysm 09/28/2012 HTN, goal below 140/90 01/22/2010 Anxiety state 01/22/2010 Esophageal reflux 01/22/2010 documented as of this encounter (statuses as of 10/04/2023) Resolved Problems Problem Noted Date Diagnosed Date Resolved Date Kidney disease, chronic, sta ge III (GFR 30-59 ml/min) 07/13/2011 02/02/2013 Overview: Per CKD protocol #1 Malignant neoplasm of rectosigmoid junction 04/16/2010 09/08/2016 Malignant neoplasm of rectosigmoid junction 04/16/2010 10/14/2018 Generalized osteoarthritis 01/22/2010 1 04/04/2011 Overview: Left knee Elevated prostate specific antigen (PSA) 01/22/2010 09/08/2016 Overview: Due for PSA 01/01 Disorder of skin or subcutaneous tissue 01/22/2010 10/18/2018 Overview: biopsied 2003 documented as of this encounter (statuses as of 10/04/2023) Immunizations Name Administration Dates Next Due Pneumococcal Conjugate Vacc, 13 Valent (Prevnar) 09/10/2017 Pneumococcal Polysaccharide PPV23 (Pneumovax) TDAP (age 10 and older)(Boostrix) 10/25/2020 documented as of this encounter Social History Tobacco Use Types Packs/Day Years Used Date Smoking Tobacco: Former Cigarettes 1 20 0 06/22/1974 - 06/22/1994 Smokeless Tobacco: Never Alcohol Use Standard Drinks/Week Comments Yes 4.2 (1 standard drink = 0.6 oz p ure alcohol) vodka with dinner PHQ-2 Answer Date Recorded PHQ Adult Total Score 0 03/07/2020 Hunger Vital Sign Answer Date Recorded Worried About Running Out of Food in the Last Ye ar Never true 02/20/2019 Ran Out of Food in the Last Year Never true 02/20/2019 Sex and Gender Information Value Date Recorded Sex Assigned at Male 11/25/2019 1:46 PM EDT Gender Identity Male 11/25/2019 1:46 PM EDT Sexual Orientation Straight 11/25/2019 1: 46 PM EDT Job Start Date Occupation Industry Not on file Not on file Not on file documented as of this encounter Miscellaneous Notes * Telephone Encounter - Vi Browning LPN - 10/04/2023 1:19 PM EDT Care Gaps Comprehensive Care Outreach Last Office/Telemedicine Visit: 09/17/2023 (in office), Visit date not found (telemedicine) Next Office Visit: 02/09/2024 Hemoglobin AIC Results: Lab Results Component Value Date/Time HEMOGLOBIN A1C - [facility] 6.3 (H) 10/25/2020 12:40 PM HEMOGLOBIN A1C - [facility] 5.4 06/08/2014 10:00 AM HEMOGLOBIN A1C - [facility] 5.6 04/13/2011 11:55 AM BP Readings from Last 1 Encounters: 09/17/23 140/80 Reviewed Health Maintenance below: Health Maintenance Topic Date Due Albumin/Creatinine Ratio Never done Adult Wellness Visit 08/11/2017 Colonoscopy 11/04/2020 Zoster Vaccines (2 of 2) 01/31/2021 Depression Screening 03/07/2021 HbA1c 10/25/2021 Labs Colon Awv Spoke with daughter. Dementia is getting worse. Wanted to know about being seen sooner. Will send message to pcp Care Gap Outreach Action Taken: Spoke to patient documented in this encounter Plan of Treatment Upcoming Encounters Date Type Department Care Team (Late st Contact Info) Description 02/09/2024 2:00 PM EST Office Visit General Internal Medicine [facility] [place] [address] [facility] [address] [place] [id number] Mitch Mar MD [address] [facility] [place] [address] Health Maintenance Due Date Last Done Comments Albumin/Creatinine Ratio 1958 Adult Wellness Visit 08/11/2017 08/11/2016 Colonoscopy 11/04/2020 11/04/2017, 10/23, 06/14/2014, Additional history exists Zoster Vaccines (2 of 2) 01/31/2021 12/06/2020 Depression Screening 03/07/2021 03/07/2020, 05/31/19 15 HbA1c 10/25/2021 10/25/2020, 0408/2014, 04/13/2011 COVID-19 Vaccine ( - 2022- season) 2022 Influenza Vaccine (FLU shot) (#1) 2023 DTaP,Tdap,and Td Vaccines (2 - Td or Tdap) 10/25/2030 10/25/2020 Pneumococcal Vaccine: 65+ Years Completed 09/10/2017, 08/14/2010 HPV (Gardasil) Vaccine Aged Out No lo nger eligible based on patient's age to complete this topic Hepatitis B Vaccine Aged Out No longe r eligible based on patient's age to complete this topic MENINGOCOCCAL (MENACTRA/MENVEO) Aged Out No longer eligible based on patient's age to complete this topic documented as of this encounter Medical Devices Not on filedocumented as of this encounter Care Teams Actuarial Analyst Relationship Specialty Start Date End Date Mitch Mar MD [address] [facility] [place] [address] PCP - General 12/30/09 documented as of this encounter
--- OUTSIDE RECORDS SUMMARY | 2023-11-26 07:08 | External Medical Summary | Summary of Care ---
Author Name Unknown Organization [facility] Address [address] [place] [address] Phone [phone] Care Team Providers Care Rail Doweling Machine Operator Name Role Phone Mitch Mar MD Primary Care Provider + Encounter Details Date Type Department Care Team (Late st Contact Info) Description 09/20/2023 Orders Only PATIENT PORTAL DO NOT DELETE THIS DEPT USED BY [facility] [id number] Allergies Active Allergy Reactions Criticality Noted Date Comments Lidocaine Hcl 02/07/2010 Pt reports rxn to lidocaine documented as of this encounter (statuses as of 09/20/2023) Medications Medication Sig Dispensed Refills Start Date [...] Oral HS,Indications: as needed, Reported on 01/24/2021 [id number] Ethyl Esters 1 GM Oral CapsuleIndications:Mix ed [...] as of this encounter (statuses as of 09/20/2023) Active Problems Problem Noted Date Diagnosed Date [...] as of this encounter (statuses as of 09/20/2023) Resolved Problems Problem Noted Date Diagnosed Date [...] as of this encounter (statuses as of 09/20/2023) Immunizations Name Administration Dates Next Due Pneumococcal [...] on file documented as of this encounter Plan of Treatment Upcoming Encounters Date Type Department Care Team (Late st Contact Info) Description 02/09/2024 2:00 PM EST Office Visit General Internal Medicine [place] [address] [place] [address] Mitch Mar MD [address] [place] [address] Health Maintenance Due Date Last Done Comments Albumin/Creatinine Ratio 1958 Colonoscopy 11/04/2020 11/04/2017, 10/23, 06/14/2014, Additional history exists Zoster Vaccines (2 of 2) 01/31/2021 12/06/2020 Depression Screening 03/07/2021 03/07/2020, 05/31/19 15 HbA1c 10/25/2021 10/25/2020, 05/23, 04/13/2011 COVID-19 Vaccine ( - 2022- season) [...] filedocumented as of this encounter Care Teams Rail Doweling Machine Operator Relationship Specialty Start Date End Date Mitch Mar MD [address] [place] [address] PCP - General 12/30/09 documented as of this encounter
--- OUTSIDE RECORDS SUMMARY | 2023-11-26 07:08 | External Medical Summary | Summary of Care ---
Author Name Unknown Organization [facility] Address [address] [place] [address] Phone [phone] Care Team Providers Care Survey Chief Name Role Phone Mitch Mar MD Primary Care Provider + Reason for Visit * Reason Onset Date Comments Advice 10/04/2023 Encounter Details Date Type Department Care Team (Late st Contact Info) Description 10/04/2023 Telephone General Internal Medicine [facility] [place] [address] [facility] [place] [address] Mitch Mar MD [address] [place] [address] Advice Allergies Active Allergy Reactions Criticality Noted Date Comments Lidocaine Hcl 02/07/2010 Pt reports rxn to lidocaine documented as of this encounter (statuses as of 10/19/2023) Medications Medication Sig Dispensed Refills Start Date [...] Oral HS,Indications: as needed, Reported on 01/24/2021 [id number] Ethyl Esters 1 GM Oral CapsuleIndications:Mix ed [...] as of this encounter (statuses as of 10/19/2023) Active Problems Problem Noted Date Diagnosed Date [...] as of this encounter (statuses as of 10/19/2023) Resolved Problems Problem Noted Date Diagnosed Date [...] as of this encounter (statuses as of 10/19/2023) Immunizations Name Administration Dates Next Due Pneumococcal [...] encounter Miscellaneous Notes * Telephone Encounter - Natasha Abraham MED ASSIST - 10/05/2023 10:57 AM EDT Attempted to call patient, there was no answer, left voicemail. When patient returns call, ok for ISMAEL to relay message, please refer to below documentation. If needed, can transfer to dedicated nurse line. * Telephone Encounter - Mitch Mar MD - 10/05/2023 10:52 AM EDT I would call daughter, looks like he might be seeing Deepthi Rosas at [facility] per info below, do they want to go back to see them for this? We can try to see him but I am not sure what my first availability will be, let me know, please * Telephone Encounter - Natasha Abraham MED ASSIST - 10/05/2023 10:38 AM EDT I spoke with [facility]. He has no active prescriptions and hasn't had anythingfilled since 2020. Spoke with Barbra. She states that he utilizes [facility]. Spoke with [facility]. She states that he has routinely picking up his medications. Dr. Deepthi Rosas at [facility] prescribes: Tramadol 50mg Finasteride 5mg Lisinopril 10mg Hydroxyzine 50mg Metformin 500mg Simvastatin 40mg Donepezil 5[address] Quinn prescribes Carbamezapine 500 mg. * Telephone Encounter - Mitch Mar MD - 10/05/2023 8:27 AM EDT Please call the pharmacy, who is filling his meds? I haven't seen him in sometime and I am wondering if he has new pcp? * Telephone Encounter - Vi Browning LPN - 10/04/2023 1:28 PM EDT Spoke to patient's daughter and she was wondering if they could get a sooner appointment with Dr. Mar. His dementia is getting worse. Last visit they sent him to the ER. Daughter said they wanted to admit him but he left. He took his IV out and left AMA. Please advise. Thank you, Vi Browning LPN Care Gaps Department documented in this encounter Plan of Treatment Upcoming Encounters Date Type Department Care Team (Late st Contact Info) Description 02/09/2024 2:00 PM EST Office Visit General Internal Medicine [facility] [address] [facility] [place] [address] [facility] MD [address] [facility] [address] Health Maintenance Due Date Last Done Comments Albumin/Creatinine Ratio 1958 Adult Wellness Visit 08/11/2017 08/11/2016 Colonoscopy 11/04/2020 11/04/2017, 10/23, 06/14/2014, Additional history exists Zoster Vaccines (2 of 2) 01/31/2021 12/06/2020 Depression Screening 03/07/2021 03/07/2020, 05/31/19 15 HbA1c 10/25/2021 10/25/2020, 05/23, 04/13/2011 COVID-19 Vaccine ( - 2022- season) 2022 Influenza Vaccine (FLU shot) (#1) 2023 DTap/Tdap Vaccines (2 - Td or Tdap) 10/25/2030 [...] filedocumented as of this encounter Care Teams Survey Chief Relationship Specialty Start Date End Date Mitch Mar MD [address] [place] [address] PCP - General 12/30/09 documented as of this encounter
--- OUTSIDE RECORDS SUMMARY | 2023-11-26 07:08 | External Medical Summary | Summary of Care ---
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)*; Delirium; Memory loss; HTN, goal below 140/90; Mixed hyperlipidemia; Diastolic dysfunction; Gastroesophageal reflux disease, unspecified whether esophagitis present; Prediabetes Allergies Active Allergy Reactions Criticality Noted Date Comments Lidocaine Hcl 02/07/2010 Pt reports rxn to lidocaine documented as of this encounter (statuses as of 09/17/2023) Medications Medication Sig Dispensed Refills Start Date [...] Oral HS,Indications: as needed, Reported on 01/24/2021 [id number] Ethyl Esters 1 GM Oral CapsuleIndications:Mix ed [...] as of this encounter (statuses as of 09/17/2023) Active Problems Problem Noted Date Diagnosed Date [...] as of this encounter (statuses as of 09/17/2023) Resolved Problems Problem Noted Date Diagnosed Date [...] as of this encounter (statuses as of 09/17/2023) Immunizations Name Administration Dates Next Due Pneumococcal [...] on file documented as of this encounter Last Filed Vital Signs Vital Sign Reading Time Taken Comments Blood Pressure 140/80 09/17/2023 12:59 PM EDT Pulse 89 09/17/2023 12:59 PM EDT Temperature 37.2 C (98.9 F) 09/17/2023 12:59 PM E DT Respiratory Rate 16 09/17/2023 12:59 PM EDT Oxygen Saturation 95% 09/17/2023 12:59 PM EDT Inhaled Oxygen Concentration - - Weight 86.4 kg (190 lb 6.4 oz) 09/17/2023 12:59 PM EDT Height 170.2 cm (5' 7") 09/17/2023 12:59 PM EDT Body Mass Index 29.82 09/17/2023 12:59 PM EDT documented in this encounter Progress Notes * Chyna Titus MD - 09/17/2023 1:12 PM EDT Images from the original note were not included. History of Present Illness Harrison Chavira is a 83 year old male that presents for Urinary Tract Infection Symptoms 83 year old YOmale with PMH as listed below presents here for evaluation of urinary symptoms and worsening of dementia. Duration of illness: Ongoing with dementia and urinary symptoms since yesterday Symptoms present : -Pain with urination and urgency Sudden urge to urinate, Urinating frequently . Patient declines any of the symptoms and reluctant that he does not want to give urine or any other blood work. - ongoing Back pain/side pain bilateral and Leg pain. And patient keeps saying that his doctor did some kind manipulation or break test/treatment on his upper back which helped and want to do that today. I can not make out what he means by dad except maybe chiropractic treatment and noticed he was not seen by any D.O. in the system who could do manipulation. He declines to go to physical therapy -worsening of dementia according to daughter was also translating for him and patient declines identification clerk. She said that she leaves away and he lives by himself with to caregiver who comes 4-5 days per week to help him which he is sometimes reluctant to have them come in. He does everything by himself at home but she does not know how much he is doing and can not imagine how he is doing. This isthe 1st time I am seeing Harrison and he looks confused, repeating same things again and again and at times frustrated and agitated Symptoms not present: Fever chills, nausea vomiting, low appetite, cold or sinus congestion, recentfall Have same similar thing in past : Ongoing dementia per his PCP who gave hand over of patient yesterday. Patient was very upset when PCP had to take his license away and probably switched his PCP Since symptoms started things getting : Worse per patient's daughter regarding memory and probably the back pain Used anything for this illness: Patient using massage chair at home which does help with his back Other concerns or issues present : He does not have any family member locally to help him except some caregiver Physical Exam Vitals: 09/17/23 1259 Temp: 37.2 C (98.9 F) Pulse: 89 Resp: 16 SpO2: 95% BP: 140/80 BMI: 29.81 Physical Exam Constitutional: General: He is not in acute distress. Appearance: Normal appearance. He is normal weight. Neurological: General: No focal deficit present. Mental Status: He is alert. Motor: No weakness. Gait: Gait normal. Comments: OAA *1 , agitated, dementia with confabulation Cranial nerves seems to be okay and he is walking with some difficulty so no focal deficit Psychiatric: Comments: Patient seems to be mad, frustrated, agitated at times due to myself and other people notunderstanding him and his problem. 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 There could be medical reason for confusion , delusion or delirium or this could simply be dementia with psychosis. Any how he should not live by himself and should be in assisted living or memory care. 911 was called and he was sent to hospital for evaluation for any reversible medical cause and proper placement.Daughter is in agreement He might benefit from mood stabilizer like Abilify- defer to psychiatrist Delirium - URINALYSIS WITH MICROSCOPIC EXAM; Future - CULTURE, URINE, QUANTITATIVE; Future - TSH WITH FREE T4 IF INDICATED; Future - RETURN TO WORK OR SCHOOL Memory loss - URINALYSIS WITH MICROSCOPIC EXAM; Future - CULTURE, URINE, QUANTITATIVE; Future - CBC; Future - VITAMIN B12; Future - FOLIC ACID; Future - RETURN TO WORK OR SCHOOL HTN, goal below 140/90 - COMPREHENSIVE METABOLIC PANEL; Future Mixed hyperlipidemia Diastolic dysfunction - RETURN TO WORK OR SCHOOL Gastroesophageal reflux disease, unspecified whether esophagitis present Prediabetes - HEMOGLOBIN A1C; Future Wrap-Up Time: I spent a total of 40-54 minutes (exact time 50 mins) on the date of service in preparation, delivery, and documentation of the care provided to Harrison Chavira excluding any time spent in the performanceof separately billed services. documented in this encounter Nursing Notes * Natasha Abraham, MED ASSIST - 09/17/2023 12:55 PM EDT Harrison Chavira presents with complaints of: Urinary Symptoms- Pain with urination Sudden urge to urinate Urinating frequently Back pain/side pain bilateral Leg pain Onset of symptoms: 1 day(s) ago. They are uncertain what medications he is taking. Barbra isn't certain of his medications. She states she can bring a list next time but she isn't sure he's taking what's on his list due to his dementia. Barbra states that he states that "he says we don't need to check it and he doesn't want to do it." documented in this encounter Plan of Treatment Upcoming Encounters Date Type Department Care Team (Late st Contact Info) Description 02/09/2024 2:00 PM EST Office Visit General Internal Medicine [facility] [address] [place] [address] Mitch Mar MD [address] [facility] [place] [address] Scheduled Orders Name Type Priority Associated Diagnoses Orde r Schedule URINALYSIS WITH MICROSCOPIC EXAM Lab Routine Memory loss Delirium Expected: 09/17/2023 (Approximate), Expires: 09/16/2024 CULTURE, URINE, QUANTITATIVE Lab Routine Memory loss Delirium Expected: 09/17/2023, Expires: 09/16/2024 CBC Lab Routine Memory loss Expected: 09/17/2023 (Approximate), Expires: 09/16/2024 COMPREHENSIVE METABOLIC PANEL Lab Routine HTN, goal below 140/90 Expected: 09/17/2023 (Approximate), Expires: 09/16/2024 TSH WITH FREE T4 IF INDICATED Lab Routine Delirium Expected: 09/17/2023 (Approximate), Expires: 09/16/2024 HEMOGLOBIN A1C Lab Routine Prediabetes Expected: 09/17/2023 (Approximate), Expires: 09/16/2024 VITAMIN B12 Lab Routine Memory loss Expected: 09/17/2023 (Approximate), Expires: 09/16/2024 FOLIC ACID Lab Routine Memory loss Expected: 09/17/2023 (Approximate), Expires: 09/16/2024 Health Maintenance Due Date Last Done Comments Albumin/Creatinine Ratio 1958 Colonoscopy 11/04/2020 11/04/2017, 10/23, 06/14/2014, Additional history exists Zoster Vaccines (2 of 2) 01/31/2021 12/06/2020 Depression Screening 03/07/2021 03/07/2020, 05/31/19 15 HbA1c 10/25/2021 10/25/2020, 05/23, 04/13/2011 COVID-19 Vaccine (1 - 2022- season) 2022 Influenza Vaccine (FLU [...] Not on filedocumented as of this encounter Visit Diagnoses Diagnosis 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
[2023-11-26] MEDS: FINASTERIDE 5 MG TAB PO SCH (08:18)
[2023-11-26] MEDS: DULoxetine HCL 30 MG CAP PO SCH (08:18)
[2023-11-26] MEDS: PANTOprazole 40 MG TAB PO SCH (08:19)
--- NOTE | 2023-11-26 10:36 | Electrocardiogram Report ---
Test Reason : Blood Pressure : */* mmHG Vent. Rate : 84 BPM Atrial Rate : 84 BPM P-R Int : 180 ms QRS Dur : 84 ms QT Int : 394 ms P-R-T Axes : 62 38 68 degrees QTcB Int : 465 ms Normal sinus rhythm Normal ECG When compared with ECG of 17-Sep-2023 14:59, No significant change was found Confirmed by Arik Ayala ([id number]) on 11/26/2023 10:35:41 AM Referred By: REFERRED SELF Confirmed By: Arik Ayala
--- NOTE | 2023-11-26 12:36 | Hospitalist Progress Note ---
Date of Service November 26, 2023 Assessment & Plan (1) Agitation: (2) Dementia: (3) Hypertension: (4) Dyslipidemia: (5) Type 2 diabetes mellitus: (6) GERD (gastroesophageal reflux disease): (7) Chronic pain: Plan 83-year-old male with past medical history of dementia, type 2 diabetes mellitus, essential hypertension, hyperlipidemia, chronic pain with myofascial pain who presents to the ED with progressively worsening symptoms of agitation and worsening of dementia. #Agitation #Progressing dementia Overnight patient was required 3 doses of IM Haldol 5 mg along with Ativan 1 mg IM Currently he is calm and cooperative Continue Aricept Check B12 TSH is 4.963 Free T4 is 0.55 QTc B is 465 Start Seroquel 25 mg p.o. nightly Monitor QTc: Check repeat EKG in 1 week's time #New diagnosis of hypothyroidism TSH is 4.963 Free T4 is low at 0.55 Start levothyroxine 50 mcg p.o. daily in a.m. #Essential hypertension #Hyperlipidemia Resume lisinopril 10 mg p.o. daily with hold parameters Resume statin Monitor LFTs #Type 2 diabetes mellitus Check A1c Hold metformin for now #Chronic pain/myofascial pain #Left knee arthritis Continue Tylenol 1 g 3 times daily Continue Cymbalta CODE STATUS: DNR/DNI DVT prophylaxis: Start Lovenox 40 mg subcutaneous daily Admission and Anticipated Discharge Date Admission Date: November 25, 2023 Subjective Patient seen and examined H&P reviewed Labs reviewed Radiology reviewed Patient with dementia, currently not agitated Complaining of left knee pain Patient has chronic pain and myofascial pain The patient has dementia and unable to get a full review of systems. He appears comfortable Physical Exam Physical Exam: General: No acute distress Psych: Awake and oriented to self HEENT: Anicteric sclera, moist oral mucosa CVS: Regular rate and rhythm Lungs: Bilateral air entry, no wheezing noted Abdomen: Soft, nontender, no rebound, no guarding Ext: No lower extremity edema, no calf tenderness Neuro: No focal motor deficits noted Results & Data Results & Data Vital Signs (Past 12 Hours) Vital Signs Temp Pulse Resp BP Pulse Ox O2 Del Method 11/26/23 06:52 36.5 C 70 16 134/79 95 Room Air Laboratory Results Laboratory Results - last 24 hr 11/25/23 17:28 WBC 7.74 RBC 5.37 Hgb 15.2 Hct 43.5 MCV 81.0 MCH 28.3 MCHC 34.9 RDW Std Deviation 39.1 RDW Coeff of Ed 13.2 Plt Count 210 MPV 9.8 Immature Gran % (Auto) 0.3 Neut % (Auto) 70.6 Lymph % (Auto) 17.4 Dixon % (Auto) 8.0 Eos % (Auto) 3.2 Baso % (Auto) 0.5 Neut # (Auto) 5.46 Lymph # (Auto) 1.35 Dixon # (Auto) 0.62 H Eos # (Auto) 0.25 Baso # (Auto) 0.04 Immature Gran # (Auto) 0.02 Sodium 139 Potassium 4.2 Chloride 106 Carbon Dioxide 25 Anion Gap 8 BUN 20 Creatinine 0.95 Est Cr Clr Drug Dosing 53.0 eGFR 78.44 BUN/Creatinine Ratio 21.1 H Glucose 121 H Calcium 9.3 Magnesium 2.0 Total Bilirubin 0.7 AST 18 ALT 23 Alkaline Phosphatase 65 Total Creatine Kinase 149 Troponin I High Sens 5.8 Total Protein 6.5 Albumin 4.2 Globulin 2.3 L Albumin/Globulin Ratio 1.8 TSH 4.963 H Free T4 0.55 L Diagnostic Findings Chest X-Ray 11/25/23 15:32 XR chest 1V portable CLINICAL HISTORY: weakness COMPARISON STUDY: Chest radiograph September 17, 2023. FINDINGS: There is no pneumothorax or pleural effusion. Cardiomegaly is unchanged. There is no evidence for pulmonary edema. No consolidation is identified to suggest pneumonia. IMPRESSION: No acute cardiopulmonary findings. Stable cardiomegaly. ACT 112: Negative or not required by law. Electronically signed by: Kristofer Reyes M.D. 11/25/2023 5:[address] 11/25/23 15:32 CT OF THE HEAD WITHOUT CONTRAST CLINICAL HISTORY: Altered mental status. COMPARISON STUDY: MRI of the brain May 24, 2020. CT DOSE: 703.85 mGy.cm TECHNIQUE: Helical axial images of the head were obtained without IV contrast. Automated exposure control was utilized for the study. A dose lowering technique was utilized adhering to the principles of ALARA. FINDINGS: No acute intracranial hemorrhage, midline shift or mass effect is present. The ventricular system is unremarkable. The basal cisterns are patent. No extra-axial collections are present. There are no findings to suggest acute dural sinus thrombosis or acute territorial infarct. An 8 mm hypodensity within the right basal ganglia is unchanged. There are no calvarial fractures. There is mild ethmoid sinus mucosal thickening. IMPRESSION: No acute intracranial findings. ACT 112: Negative or not required by law. Electronically signed by: Kristofer Reyes M.D. 11/25/2023 6:04 PM Knee X-Ray 11/25/23 15:32 XR knee LT 1 or 2V routine CLINICAL HISTORY: Left knee pain. COMPARISON: Left knee radiographs March 07, 2021. FINDINGS: Alignment of the left knee is anatomic. There are no fractures. There are no osseous lesions. There is a trace joint effusion. Mild to moderate lateral patellofemoral compartment osteoarthritis is present. IMPRESSION: 1. No fractures within the left knee. Trace left knee joint effusion. 2. Mild to moderate lateral and patellofemoral compartment osteoarthritis. ACT 112: Negative or not required by law. Electronically signed by: Kristofer Reyes M.D. 11/25/2023 5:58 PM PG Care Time/CCT Total # of Minutes Spent Total Time Spent with Patient: Total time spent is greater than 50% in coordination of care (as documented) at patient's floor/unit and/or counseling patient: Coding Level of Care Code 73872 SUB INP/OBS CARE 3/50MIN Diagnoses Agitation R45.1 Dementia F03.90 Dementia behavioral or psychological symptom: unspecified whether behavioral, psychotic, or mood disturbance or anxiety Dementia severity: unspecified severity Dementia type: unspecified type Hypertension I10 Dyslipidemia E78.5 Type 2 diabetes mellitus E11.9 GERD (gastroesophageal reflux disease) K21.9 Chronic pain G89.29 (2) Dementia Dementia behavioral or psychological symptom: unspecified whether behavioral, psychotic, or mood disturbance or anxiety Dementia severity: unspecified severity Dementia type: unspecified type Qualified Code(s): F03.90 - Unspecified dementia, unspecified severity, without behavioral disturbance, psychotic disturbance, mood disturbance, and anxiety
[2023-11-26] MEDS: QUEtiapine FUMARATE 25 MG TABLET PO SCH (21:23)
[2023-11-26] MEDS: lisinopril 10 MG TAB PO SCH (21:23)
[2023-11-26] MEDS: SIMVASTATIN 40 MG TAB PO SCH (21:23)
[2023-11-27] MEDS: LEVOTHYROXINE SODIUM 50 MCG TABLET PO SCH (07:04)
[2023-11-27 07:09] LABS: BUN Creatinine Ratio 16.2 (10-20); Calcium 8.7 mg/dl (8.6-10.3); Potassium 3.8 mmol/L (3.5-5.1)
[2023-11-27 07:21] LABS: Estimated Average Glucose 146 mg/dl; Hemoglobin A1C 6.7 % (4.5-5.6)
[2023-11-27] MEDS ORDERED: DEXTROSE 50% 50 ML SYRINGE IV PRN (09:23)
[2023-11-27] MEDS ORDERED: GLUCOSE 10 TAB/TUBE PO PRN (09:23)
[2023-11-27] MEDS ORDERED: PHARMACY GLYCEMIC MGMT CONSULT PRN (09:23)
[2023-11-27] MEDS ORDERED: GLUCOSE 40% GEL 15 GM TUBE PO PRN (09:23)
[2023-11-27] MEDS ORDERED: CARBOHYDRATES FOR HYPOGLYCEMIA PO PRN (09:23)
[2023-11-27] MEDS ORDERED: GLUCAGON FOR INJ 1 MG VIAL SQ PRN (09:23)
[2023-11-27] MEDS: ENOXAPARIN INJ 40 MG/0.4 ML SYR SQ SCH (10:56)
[2023-11-27] MEDS: INSULIN ASPART PER UNIT CHARGE SC SCH (13:13)
--- NOTE | 2023-11-27 13:14 | Hospitalist Progress Note ---
Date of Service November 27, 2023 Assessment & Plan (1) Agitation: (2) Dementia: (3) Hypertension: (4) Dyslipidemia: (5) Type 2 diabetes mellitus: (6) GERD (gastroesophageal reflux disease): (7) Chronic pain: Plan 83-year-old male with past medical history of dementia, type 2 diabetes mellitus, essential hypertension, hyperlipidemia, chronic pain with myofascial pain who presents to the ED with progressively worsening symptoms of agitation and worsening of dementia. As per patient's granddaughter Jamilah: Patient has not taken his medications in several weeks #Agitation #Progressing dementia Psychiatry saw the patient: Awaiting health management consultant recommendations In the meantime continue with Seroquel 25 mg p.o. nightly Continue Aricept B12 255 TSH is 4.963 Free T4 is 0.55 QTc B is 465 Monitor QTc: Check repeat EKG in 1 week's time #New diagnosis of hypothyroidism TSH is 4.963 Free T4 is low at 0.55 Continue levothyroxine 50 mcg p.o. daily in a.m. #Essential hypertension #Hyperlipidemia Continue lisinopril 10 mg p.o. daily with hold parameters Continue statin Monitor LFTs intermittently #Type 2 diabetes mellitus A1c 6.7 Accu-Cheks before every meal and nightly presiding scale insulin coverage Monitor glycemic control #Chronic pain/myofascial pain #Left knee arthritis Continue Tylenol 1 g 3 times daily Continue Cymbalta #Vitamin B12 deficiency Vitamin B12 IM replacement x 3 days and then switch to p.o. CODE STATUS: DNR/DNI DVT prophylaxis: Lovenox 40 mg subcutaneous daily Discharge planning to memory care unit when bed available Care plan discussed with nursing staff and granddahansel Askew ([phone]) updated at bedside Admission and Anticipated Discharge Date Admission Date: November 25, 2023 Subjective Patient seen and examined Labs reviewed Granddaughter Jamilah at bedside patient Patient was seen by psychiatrist earlier, awaiting recommendations Patient is agitated about being in the hospital and wants to go home Physical Exam Physical Exam: General: No acute distress Psych: Awake and oriented to self HEENT: Anicteric sclera, moist oral mucosa CVS: Regular rate and rhythm Lungs: Bilateral air entry, no wheezing noted Abdomen: Soft, nontender, no rebound, no guarding Ext: No lower extremity edema, no calf tenderness Results & Data Results & Data Vital Signs (Past 12 Hours) Vital Signs Pulse Resp BP Pulse Ox O2 Del Method 11/27/23 06:30 73 18 124/61 94 Room Air Laboratory Results Laboratory Results - last 24 hr 11/27/23 06:15 Sodium 139 Potassium 3.8 Chloride 107 Carbon Dioxide 27 Anion Gap 5 BUN 17 Creatinine 1.05 Est Cr Clr Drug Dosing 48.0 eGFR 69.56 BUN/Creatinine Ratio 16.2 Glucose 131 H Estimat Average Glucose 146 Hemoglobin A1c 6.7 H Calcium 8.7 Magnesium 2.0 Vitamin B12 277 PG Care Time/CCT Total # of Minutes Spent Total Time Spent with Patient: Total time spent is greater than 50% in coordination of care (as documented) at patient's floor/unit and/or counseling patient: Coding Level of Care Code 96584 SUB INP/OBS CARE 2MIN Diagnoses Agitation R45.1 Dementia F03.90 Dementia behavioral or psychological symptom: unspecified whether behavioral, psychotic, or mood disturbance or anxiety Dementia severity: unspecified severity Dementia type: unspecified type Hypertension I10 Dyslipidemia E78.5 Type 2 diabetes mellitus E11.9 GERD (gastroesophageal reflux disease) K21.9 Chronic pain G89.29 (2) Dementia Dementia behavioral or psychological symptom: unspecified whether behavioral, psychotic, or mood disturbance or anxiety Dementia severity: unspecified severity Dementia type: unspecified type Qualified Code(s): F03.90 - Unspecified dementia, unspecified severity, without behavioral disturbance, psychotic disturbance, mood disturbance, and anxiety
[2023-11-27] MEDS: CYANOCOBALAMIN 1000 MCG/ML VIAL IM SCH (14:58)
--- NOTE | 2023-11-27 15:18 | Psychiatric Consultation ---
Date of Consultation November 27, 2023 Impression / Recommendations Impression Suspect a persistent agitated delirium (UTI may be chronic) superimposed onto dementia with behavioral disturbance. (1) Delirium due to another medical condition, persistent, hyperactive: (2) Unspecified dementia, mild, with other behavioral disturbance: Plan Recommended trial of risperidone 0.25mg AM & 0.5mg HS with risperidone 0.25mg Q2HPRN acute agitation, max 3 doses/24 hours + now dose of risperidone 0.5mg due to increasing agitation in the context of not wanting to wait at the hospital D/C seroquel 25mg HS Low dose of risperidone is unlikely to have significant impact on QTc however given his age and risks associated with antipsychotic use in elderly with dementia, would monitor EKG (getting checked next week). Discussed risks vs benefits with patient & granddaughter (who also discussed it with her mom/his daughter) - patients ability to understand was limited however he did want to take something that could help settle him a bit as he was feeling distressed intermittently - discussed risk of sudden in the elderly with dementia with antipsychotic use, discussed using lowest effective dose to minimize risk and improve quality of life for patient as his worsening behavioral disturbances and aggression have been significantly impacting his life in a negative way CPT Code Overall, I spent a total of 60 minutes with this case, including review of chart, direct evaluation of the patient, communication with family, reviewing medication, coordination with nursing,coordination of care with hospitalist service, risk assessment, and documentation. Psych History Chief Complaint "[]". History of Present Illness 83yo M with PMH of dementia (diagnosed about a year ago), with worsening behavioral disturbances and significant more acute worsening over the past month. Also with PMH of essential HTN, HLD, DMT2, L knee arthritis and recent dx of hypothyroidism - found to have possible UTI on admission, as well as to have low B12 which is now being supplemented. Psychiatry was consulted due to behavioral concerns. Of note, patient is Croatian speaking & interview was conducted in Croatian as this is my [place] language. Patient was evaluated while he was still in ED at bedside. Difficult to interview - poor historian and disoriented. Was not oriented to time, though did know he was in a hospital (however not which hospital) and thought he has been here for a week. Does not understand why he is in the hospital and preoccupied with wanting to leave because "I'm tired of waiting" (translation). Asks if he can just go home and call the physician at the hospital - did not seem to understand when the hospital process was explained to him. Making statements about having 3 families (has 1 family), children and siblings that dont exist, etc. Interview had to be cut short as he started becoming agitated - was raising his voice and standing up from bed, seemed to be paranoid. Was calmed and redirected with the aid of his granddaughter. Spoke to patients granddaughter in family waiting area who reported that he was dx with unknown type of dementia about a year ago and symptoms have progressed rapidly since then (though prior to diagnosis it seems that patient had been gradually cognitively declining for years as dementia dx "was not a surprise"). Patient lives in [facility] and is no longer allowed back to to worsening behaviors that make other residents feel unsafe (has pushed residents, thrown things, walked around naked etc). Patients granddaughter also reported that he can be labile and aggressive - will suddenly get angry and start screaming and throwing things, at times tries to hit people. She noted that he is very difficult to manage when this happens and this is a frequent/regular occurrence. Family is in process of looking for memory care unit for patient where he can receive appropriate level of support (is supposed to have 24/7 home nursing care but only gets 15 hours a week currently). Past Psychiatric History Previous Psych History: None Outpatient Services: None Previous Psych Admissions: None Do You Have Access To A Gun?: No History of Previous Suicide Attempt: No Describe Attempts in the Past: N/A Past Medication Trials: Currently on seroquel 25mg HS (for behavioral disturbances) & Cymbalta 30mg daily (for pain) Has not been taking for few weeks now, though as per daughters report it does not sound like the seroquel had helped much even when he was taking it Allergies Allergy/AdvReac Type Severity Reaction Status Date / Time procaine Allergy Severe convulsions Verified 11/25/23 20:16 Home Medications Medication Instructions Recorded Confirmed Type finasteride 5 mg tablet 5 mg PO DAILY #90 tabs 01/02/20 11/25/23 Rx lisinopril 10 mg tablet 10 mg PO DAILY #90 tabs 01/02/20 11/25/23 Rx omeprazole 40 mg capsule,delayed 40 mg PO DAILY #90 caps 01/02/20 11/25/23 Rx release duloxetine 30 mg capsule,delayed 30 mg PO DAILY 03/11/23 11/25/23 History release metformin 500 mg tablet 500 mg PO DAILY 03/11/23 11/25/23 History donepezil 5 mg disintegrating 5 mg PO . Q EVENING & HS 11/25/23 11/25/23 History tablet silver sulfadiazine 1 % topical 1 applic topical DAILY 11/25/23 11/25/23 History cream simvastatin 40 mg tablet 40 mg PO HS 11/25/23 11/25/23 History triamcinolone acetonide 0.1 % 1 applic topical DAILY 11/25/23 11/25/23 History topical cream Patient History Medical History History of colon cancer Rectosigmoid junction BPH (benign prostatic hyperplasia) Surgical History History of colon resection History of colonoscopy with polypectomy Family History Other Hypertension Social History Smoking Status: Former smoker Hx Alcohol Use: Yes Alcohol type: hard liquor Hx Substance Use: No Preferred Language: Croatian Communication Ability: Impaired Communication Ability Comment: daughter translates, refuses translation services Communication Tools: Facial Expression, Physical Gestures and Lip Movement/Reading [employer] Manager Required: Yes Beliefs That Will Affect Care: None Current Living Situation: Alone Current Living Situation Comment: Needs fci placement Feels Safe at Home: Yes Assistive Devices: Special Shoe Physical Exam Mental Examination: Grossly oriented to place (hospital but not which one), not oriented to time Appearance: Well Groomed Eye Contact: Prolonged Contact Motor Behavior: Restless (frequently wanting to walk around the ED) Speech: Repetitive (at times loud volume) and Perseverating Mood: Irritable Affect: Irritable and Labile Thought Process: Loose Associations Thought Content: Disoriented and Preoccupation Hallucinations: None Insight: Poor Judgement: Poor Vital Signs (Past 24 Hours): Last Vital Signs Temp 36.5 C 11/26/23 06:52 Pulse 73 11/27/23 06:30 Resp 18 11/27/23 06:30 BP 124/61 11/27/23 06:30 Pulse Ox 94 11/27/23 06:30 O2 Del Method Room Air 11/27/23 06:30 Results & Data (PSY) Laboratory Results Continue Aricept B12 255 TSH is 4.963 Free T4 is 0.55 QTc B is 465 Medications Administered Acetaminophen (Acetaminophen 500 Mg Tab) 1,000 mg PO Q8 DIANA Stop: 12/25/23 23:06 Last Admin: 11/27/23 13:16 Dose: 1,000 mg Documented By: Admin: 11/27/23 07:03 Dose: 1,000 mg Documented By: Admin: 11/26/23 21:22 Dose: 1,000 mg Documented By: Admin: 11/26/23 13:08 Dose: 1,000 mg Documented By: Admin: 11/26/23 07:09 Dose: Not Given Documented By: Admin: 11/26/23 00:29 Dose: Not Given Documented By: BRET Cyanocobalamin (Cyanocobalamin 1000 Mcg/Ml Vial) 1,000 mcg IM QAM DIANA Stop: 11/30/23 09:29 Last Admin: 11/27/23 14:58 Dose: Not Given Documented By: LIDIA Donepezil HCl (Donepezil Hcl 10 Mg Tab) 10 mg PO PM DIANA Stop: 12/25/23 23:06 Last Admin: 11/26/23 21:23 Dose: 10 mg Documented By: Admin: 11/26/23 00:29 Dose: Not Given Documented By: BRET Duloxetine HCl (Duloxetine Hcl 30 Mg Cap) 30 mg PO DAILY DIANA Stop: 12/26/23 08:59 Last Admin: 11/27/23 10:55 Dose: 30 mg Documented By: Admin: 11/26/23 08:18 Dose: Not Given Documented By: BRITTANY Enoxaparin Sodium (Enoxaparin Inj 40 Mg/0.4 Ml Syr) 40 mg SQ QAM DIANA Stop: 12/27/23 08:59 Last Admin: 11/27/23 10:56 Dose: 40 mg Documented By: ALEXA Finasteride (Finasteride 5 Mg Tab) 5 mg PO DAILY DIANA Stop: 12/26/23 08:59 Last Admin: 11/27/23 10:54 Dose: 5 mg Documented By: Admin: 11/26/23 08:18 Dose: Not Given Documented By: BRITTANY Insulin Aspart (Insulin Aspart Per Unit Charge) 0 units SC ACHS DIANA Stop: 12/27/23 11:29 Last Admin: 11/27/23 13:13 Dose: Not Given Documented By: ALEXA Levothyroxine Sodium (Levothyroxine Sodium 50 Mcg Tablet) 50 mcg PO DAILYBB DIANA Stop: 12/27/23 06:29 Last Admin: 11/27/23 07:04 Dose: 50 mcg Documented By: RUPALI Lisinopril (Lisinopril 10 Mg Tab) 10 mg PO DAILY DIANA Stop: 12/26/23 18:59 Last Admin: 11/27/23 10:54 Dose: 10 mg Documented By: Admin: 11/26/23 21:23 Dose: 10 mg Documented By: KRIS Pantoprazole Sodium (Pantoprazole 40 Mg Tab) 40 mg PO DAILY DIANA Stop: 12/26/23 08:59 Last Admin: 11/27/23 10:54 Dose: 40 mg Documented By: Admin: 11/26/23 08:19 Dose: Not Given Documented By: BRITTANY Quetiapine Fumarate (Quetiapine Fumarate 25 Mg Tablet) 25 mg PO QPM DIANA Stop: 12/26/23 20:59 Last Admin: 11/26/23 21:23 Dose: 25 mg Documented By: KRIS Simvastatin (Simvastatin 40 Mg Tab) 40 mg PO HS DIANA Stop: 12/26/23 20:59 Last Admin: 11/26/23 21:23 Dose: 40 mg Documented By: KRIS Coding Level of Care Code 18866 IN/OBS CONSULT LVL 4,60M Diagnoses Delirium due to another medical condition, persistent, hyperactive F05 Unspecified dementia, mild, with other behavioral disturbance F03.A18
[2023-11-27 18:02] LABS: Appearance Urine Clear (Clear); Bilirubin Urine Negative (Negative); Blood Urine Negative (Negative); Color Urine Yellow; Glucose Urine UA Negative (Negative); Ketones Urine Negative (Negative); Leukocyte Esterase Urine Negative (Negative); Nitrite Urine Negative (Negative); Protein Urine Negative (Negative); Specific Gravity Urine 1.015 (1.000-1.030); Urobilinogen Urine Negative (Negative)
[2023-11-27] MEDS: CYANOCOBALAMIN 1000 MCG/ML VIAL IM ONE (18:14)
[2023-11-27] MEDS: risperiDONE ODT 0.5 MG SOLTAB PO ONE (18:14)
[2023-11-27 18:40] LABS: Amphetamines+Metham, Urine Neg (Neg); Barbiturates, Urine Neg (Neg); Benzodiazepine, Urine Neg (Neg); Cocaine, Urine Neg (Neg); Fentanyl, Urine Neg (Neg); MDMA (Ecstacy), Urine Neg (Neg); Marijuana, Urine Neg (Neg); Methadone, Urine Neg (Neg); Opiate, Urine Neg (Neg); Phencyclidine, Urine Neg (Neg)
[2023-11-27] MEDS: risperiDONE 0.5 MG TABLET PO SCH (20:23)
[2023-11-28] MEDS: risperiDONE 0.25 MG TAB PO SCH (08:19)
--- NOTE | 2023-11-28 13:48 | Hospitalist Progress Note ---
Date of Service November 28, 2023 Assessment & Plan (1) Agitation: (2) Dementia: (3) Hypertension: (4) Dyslipidemia: (5) Type 2 diabetes mellitus: (6) GERD (gastroesophageal reflux disease): (7) Chronic pain: Plan 83-year-old male with past medical history of dementia, type 2 diabetes mellitus, essential hypertension, hyperlipidemia, chronic pain with myofascial pain who presents to the ED with progressively worsening symptoms of agitation and worsening of dementia. As per patient's granddaughter Jamilah: Patient has not taken his medications in several weeks #Agitation #Progressing dementia Psychiatry saw the patient Psychiatry has recommended trial of risperidone 0.25 mg in a.m. and 0.5 mg at bedtime with risperidone 0.25 mg every 12 hours as needed acute agitation Continue Aricept B12 255 TSH is 4.963 Free T4 is 0.55 QTc B is 464, recheck EKG in 1 week on 12/04/2023 for QTc monitoring per psychiatry recommendations #New diagnosis of hypothyroidism TSH is 4.963 Free T4 is low at 0.55 Continue levothyroxine 50 mcg p.o. daily in a.m. #Essential hypertension #Hyperlipidemia Continue lisinopril 10 mg p.o. daily with hold parameters Continue statin Monitor LFTs intermittently #Type 2 diabetes mellitus A1c 6.7 Accu-Cheks before every meal and nightly with sliding scale insulin coverage Monitor glycemic control #Chronic pain/myofascial pain #Left knee arthritis Continue Tylenol 1 g 3 times daily Continue Cymbalta #Vitamin B12 deficiency Vitamin B12 IM replacement x 2 days and then switch to p.o. #History of alcohol use Patient has not had vodka in 5 days since admission He does not appear to be in withdrawal at this point Monitor LFTs intermittently CODE STATUS: DNR/DNI DVT prophylaxis: Lovenox 40 mg subcutaneous daily Discharge planning to memory care unit when bed available: Patient is medically stable for discharge when bed available Care plan discussed with nursing staff and granddaughter Jamilah ([phone]) updated at bedside Admission and Anticipated Discharge Date Admission Date: November 25, 2023 Subjective Patient seen and examined Granddaughter Jamilah at bedside patient Patient pleasant and cooperative today. He is smiling He is tolerating oral diet without any issues Patient is originally from [place]. He understands some [place] Sor[place] As per granddaughter, patient has a history of heavy vodka use up until recently. He has not had a drink in 5 days since admission Physical Exam Physical Exam: General: No acute distress Psych: Awake and oriented to self HEENT: Anicteric sclera, moist oral mucosa CVS: Regular rate and rhythm Lungs: Bilateral air entry, no wheezing noted Abdomen: Soft, nontender, no rebound, no guarding Ext: No lower extremity edema, no calf tenderness Results & Data Results & Data Vital Signs (Past 12 Hours) Vital Signs Temp Pulse Resp BP Pulse Ox O2 Del Method 11/28/23 07:35 36.4 C L 71 16 152/79 H 94 Room Air Laboratory Results Laboratory Results - last 24 hr 11/27/23 11/27/23 11/27/23 16:05 20:37 Unknown POC Glucose 125 H 111 H Urine Color Yellow Urine Appearance Clear Urine pH 6.0 Ur Specific [place] 1.015 Urine Protein Negative Urine Glucose (UA) Negative Urine Ketones Negative Urine Blood Negative Urine Nitrite Negative Urine Bilirubin Negative Urine Urobilinogen Negative Ur Leukocyte Esterase Negative Urine Opiates Screen Neg Ur Methadone, Qual Neg Urine Fentanyl Screen Neg Urine Barbiturates Neg Ur Phencyclidine (PCP) Neg U Amphetamin/Meth Scrn Neg MDMA (Ecstasy) Screen Neg U Benzodiazepines Scrn Neg Ur Cocaine Metabolite Neg U Marijuana (THC) Screen Neg 11/28/23 11/28/23 08:00 11:43 POC Glucose 137 H 97 Urine Color Urine Appearance Urine pH Ur Specific [place] Urine Protein Urine Glucose (UA) Urine Ketones Urine Blood Urine Nitrite Urine Bilirubin Urine Urobilinogen Ur Leukocyte Esterase Urine Opiates Screen Ur Methadone, Qual Urine Fentanyl Screen Urine Barbiturates Ur Phencyclidine (PCP) U Amphetamin/Meth Scrn MDMA (Ecstasy) Screen U Benzodiazepines Scrn Ur Cocaine Metabolite U Marijuana (THC) Screen PG Care Time/CCT Total # of Minutes Spent Total Time Spent with Patient: Total time spent is greater than 50% in coordination of care (as documented) at patient's floor/unit and/or counseling patient: Coding Level of Care Code 31945 SUB INP/OBS CARE 2/35MIN Diagnoses Agitation R45.1 Dementia F03.90 Dementia behavioral or psychological symptom: unspecified whether behavioral, psychotic, or mood disturbance or anxiety Dementia severity: unspecified severity Dementia type: unspecified type Hypertension I10 Dyslipidemia E78.5 Type 2 diabetes mellitus E11.9 GERD (gastroesophageal reflux disease) K21.9 Chronic pain G89.29 (2) Dementia Dementia behavioral or psychological symptom: unspecified whether behavioral, psychotic, or mood disturbance or anxiety Dementia severity: unspecified severity Dementia type: unspecified type Qualified Code(s): F03.90 - Unspecified dementia, unspecified severity, without behavioral disturbance, psychotic disturbance, mood disturbance, and anxiety
--- NOTE | 2023-11-28 13:54 | Electrocardiogram Report ---
Test Reason : Blood Pressure : */* mmHG Vent. Rate : 72 BPM Atrial Rate : 72 BPM P-R Int : 214 ms QRS Dur : 84 ms QT Int : 424 ms P-R-T Axes : 66 32 60 degrees QTcB Int : 464 ms Sinus rhythm with 1st degree A-V block Otherwise normal ECG When compared with ECG of 25-Nov-2023 17:19, CO interval has increased Confirmed by Luis Tsang ([id number]) on 11/28/2023 1:53:54 PM Referred By: REFERRED SELF Confirmed By: Luis Tsang
[2023-11-29] MEDS: risperiDONE ODT 0.5 MG SOLTAB PO PRN (01:22)
[2023-11-29 06:28] LABS: Hematocrit (blood only) 40.9 % (42.0-52.0); Hemoglobin 13.8 g/dl (14.0-18.0); Mean Corpuscular Hemoglobin 28.3 pg (25.0-34.0); Mean Corpuscular Hgb Conc 33.7 g/dL (32.0-36.0); Platelet Count 189 K/uL (130-400); RDW Coefficient of Variation 13.3 % (11.5-14.5); RDW Standard Deviation 41.1 fL (36.4-46.3); Red Blood Count 4.87 M/uL (4.70-6.10)
[2023-11-29 06:40] LABS: Albumin Level 3.8 gm/dl (3.4-5.0); BUN Creatinine Ratio 16.8 (10-20); Bilirubin,Total 0.8 mg/dl (0.2-1.0); Creatinine Clr Calc Pharmacy 42.4 ml/min; Globulin 1.9 gm/dl (2.5-4.0); Magnesium 1.9 mg/dl (1.7-2.4); Potassium 4.1 mmol/L (3.5-5.1); Total Protein 5.7 gm/dl (6.0-8.3)
[2023-11-29] MEDS: VITAMIN B COMPLEX TAB PO SCH (08:13)
[2023-11-29] MEDS: CEROVITE ADV FORMULA TAB PO SCH (08:13)
[2023-11-29] MEDS ORDERED: CYANOCOBALAMIN (B-12) 500 MCG TABLET PO SCH (09:00)
--- NOTE | 2023-11-29 11:55 | Hospitalist Progress Note ---
Date of Service November 29, 2023 Assessment & Plan (1) Agitation: (2) Dementia: (3) Hypertension: (4) Dyslipidemia: (5) Type 2 diabetes mellitus: (6) GERD (gastroesophageal reflux disease): (7) Chronic pain: Plan 83-year-old male with past medical history of dementia, type 2 diabetes mellitus, essential hypertension, hyperlipidemia, chronic pain with myofascial pain who presents to the ED with progressively worsening symptoms of agitation and worsening of dementia. As per patient's granddaughter Jamilah: Patient has not taken his medications in several weeks #Agitation #Progressing dementia Psychiatry saw the patient Psychiatry has recommended trial of risperidone 0.25 mg in a.m. and 0.5 mg at bedtime with risperidone 0.25 mg every 12 hours as needed acute agitation Continue Aricept B12 255 TSH is 4.963 Free T4 is 0.55 QTc B is 464, recheck EKG in 1 week on 12/04/2023 for QTc monitoring per psychiatry recommendations #New diagnosis of hypothyroidism TSH is 4.963 Free T4 is low at 0.55 Continue levothyroxine 50 mcg p.o. daily in a.m. #Essential hypertension #Hyperlipidemia Continue lisinopril 10 mg p.o. daily with hold parameters Continue statin Monitor LFTs intermittently #Type 2 diabetes mellitus A1c 6.7 Accu-Cheks before every meal and nightly with sliding scale insulin coverage Monitor glycemic control #Chronic pain/myofascial pain #Left knee arthritis Continue Tylenol 1 g 3 times daily Continue Cymbalta #Vitamin B12 deficiency Vitamin B12 IM replacement x 2 days and then switch to p.o. #History of alcohol use Patient has not had vodka in 5 days since admission He does not appear to be in withdrawal at this point LFTs are stable CODE STATUS: DNR/DNI DVT prophylaxis: Lovenox 40 mg subcutaneous daily Discharge planning to memory care unit when bed available: Patient is medically stable for discharge when bed available Care plan discussed with nursing staff, case management and granddaughter Jamilah ([phone]) updated yesterday, no new updates Admission and Anticipated Discharge Date Admission Date: November 25, 2023 Subjective Patient seen and examined Labs reviewed He is listening to music and tells me that music makes him happy He is pleasant and cooperative today Physical Exam Physical Exam: General: No acute distress Psych: Awake and oriented to self HEENT: Anicteric sclera, moist oral mucosa CVS: Regular rate and rhythm Lungs: Bilateral air entry, no wheezing noted Abdomen: Soft, nontender, no rebound, no guarding Ext: No lower extremity edema Results & Data Results & Data Vital Signs (Past 12 Hours) Vital Signs Temp Pulse Resp BP Pulse Ox O2 Del Method 11/29/23 07:36 36.8 C 73 16 124/69 96 Room Air Laboratory Results Laboratory Results - last 24 hr 11/28/23 11/28/23 11/29/23 16:34 19:58 05:36 WBC 6.30 RBC 4.87 Hgb 13.8 L Hct 40.9 L MCV 84.0 MCH 28.3 MCHC 33.7 RDW Std Deviation 41.1 RDW Coeff of Ed 13.3 Plt Count 189 MPV 10.0 Sodium 138 Potassium 4.1 Chloride 105 Carbon Dioxide 27 Anion Gap 6 BUN 20 Creatinine 1.19 Est Cr Clr Drug Dosing 42.4 eGFR 59.86 BUN/Creatinine Ratio 16.8 Glucose 133 H POC Glucose 131 H 106 H Calcium 9.0 Magnesium 1.9 Total Bilirubin 0.8 AST 18 ALT 19 Alkaline Phosphatase 55 Total Protein 5.7 L Albumin 3.8 Globulin 1.9 L Albumin/Globulin Ratio 2.0 11/29/23 11/29/23 07:50 11:37 WBC RBC Hgb Hct MCV MCH MCHC RDW Std Deviation RDW Coeff of Ed Plt Count MPV Sodium Potassium Chloride Carbon Dioxide Anion Gap BUN Creatinine Est Cr Clr Drug Dosing eGFR BUN/Creatinine Ratio Glucose POC Glucose 128 H 96 Calcium Magnesium Total Bilirubin AST ALT Alkaline Phosphatase Total Protein Albumin Globulin Albumin/Globulin Ratio PG Care Time/CCT Total # of Minutes Spent Total Time Spent with Patient: Total time spent is greater than 50% in coordination of care (as documented) at patient's floor/unit and/or counseling patient: Coding Level of Care Code 01578 SUB INP/OBS CARE 2/35MIN Diagnoses Agitation R45.1 Dementia F03.90 Dementia behavioral or psychological symptom: unspecified whether behavioral, psychotic, or mood disturbance or anxiety Dementia severity: unspecified severity Dementia type: unspecified type Hypertension I10 Dyslipidemia E78.5 Type 2 diabetes mellitus E11.9 GERD (gastroesophageal reflux disease) K21.9 Chronic pain G89.29 (2) Dementia Dementia behavioral or psychological symptom: unspecified whether behavioral, psychotic, or mood disturbance or anxiety Dementia severity: unspecified severity Dementia type: unspecified type Qualified Code(s): F03.90 - Unspecified dementia, unspecified severity, without behavioral disturbance, psychotic disturbance, mood disturbance, and anxiety
[2023-11-29] MEDS: OLANZapine 10 MG/2.1 ML SDV IM STA ×2 (15:05→22:46)
--- NOTE | 2023-11-30 13:45 | Hospitalist Progress Note ---
Date of Service November 30, 2023 Assessment & Plan (1) Agitation: (2) Dementia: (3) Hypertension: (4) Dyslipidemia: (5) Type 2 diabetes mellitus: (6) GERD (gastroesophageal reflux disease): (7) Chronic pain: Plan 83-year-old male with past medical history of dementia, type 2 diabetes mellitus, essential hypertension, hyperlipidemia, chronic pain with myofascial pain who presents to the ED with progressively worsening symptoms of agitation and worsening of dementia. As per patient's granddaughter Jamilah: Patient has not taken his medications in several weeks #Agitation #Progressing dementia Psychiatry saw the patient Psychiatry has recommended trial of risperidone 0.25 mg in a.m. and 0.5 mg at bedtime with risperidone 0.25 mg every 12 hours as needed acute agitation Patient's agitation is escalating: Psychiatry reconsulted to review medications and give further recommendations Continue Aricept B12 255 TSH is 4.963 Free T4 is 0.55 QTc B is 464, recheck EKG in 1 week on 12/04/2023 for QTc monitoring per psychiatry recommendations #New diagnosis of hypothyroidism TSH is 4.963 Free T4 is low at 0.55 Continue levothyroxine 50 mcg p.o. daily in a.m. #Essential hypertension #Hyperlipidemia Continue lisinopril 10 mg p.o. daily with hold parameters Continue statin Monitor LFTs intermittently #Type 2 diabetes mellitus A1c 6.7 Accu-Cheks before every meal and nightly with sliding scale insulin coverage Monitor glycemic control #Chronic pain/myofascial pain #Left knee arthritis Continue Tylenol 1 g 3 times daily Continue Cymbalta #Vitamin B12 deficiency Patient initially received IM vitamin B12 replacement and is now on oral replacement #History of alcohol use Patient has not had vodka in 5 days since admission He does not appear to be in withdrawal at this point LFTs are stable CODE STATUS: DNR/DNI DVT prophylaxis: Lovenox 40 mg subcutaneous daily Discharge planning to memory care unit when bed available: Patient is medically stable for discharge when bed available Care plan discussed with nursing staff, case management. Voicemail message left for Daughter Barbra Hernandez ([phone]) and granddaughter Jamilah ([phone]) to update. Admission and Anticipated Discharge Date Admission Date: November 25, 2023 Subjective Patient seen and examined with nursing staff He is ambulating without any issues He is smiling with me and cooperative and is willing to sit in a chair Patient was agitated yesterday during the day and again overnight and has been requiring IM Zyprexa Psychiatry reconsulted: Need for further medication recommendations from psychiatry since he does not seem to responding much to risperidone and also for agitation. Physical Exam Physical Exam: General: No acute distress Psych: Awake and oriented to self HEENT: Anicteric sclera, moist oral mucosa CVS: Regular rate and rhythm Lungs: Bilateral air entry, no wheezing noted Abdomen: Soft, nontender, no rebound, no guarding Ext: No lower extremity edema PG Care Time/CCT Total # of Minutes Spent Total Time Spent with Patient: Total time spent is greater than 50% in coordination of care (as documented) at patient's floor/unit and/or counseling patient: Coding Level of Care Code 33193 SUB INP/OBS CARE MIN Diagnoses Agitation R45.1 Dementia F03.90 Dementia behavioral or psychological symptom: unspecified whether behavioral, psychotic, or mood disturbance or anxiety Dementia severity: unspecified severity Dementia type: unspecified type Hypertension I10 Dyslipidemia E78.5 Type 2 diabetes mellitus E11.9 GERD (gastroesophageal reflux disease) K21.9 Chronic pain G89.29 (2) Dementia Dementia behavioral or psychological symptom: unspecified whether behavioral, psychotic, or mood disturbance or anxiety Dementia severity: unspecified severity Dementia type: unspecified type Qualified Code(s): F03.90 - Unspecified dementia, unspecified severity, without behavioral disturbance, psychotic disturbance, mood disturbance, and anxiety
[2023-11-30] MEDS: OLANZapine 10 MG/2.1 ML SDV IM STA ×2 (14:32→16:04)
--- NOTE | 2023-11-30 15:18 | Psychiatric Progress Note ---
Date of Service November 30, 2023 Impression / Recommendations Impression Initially suspected a persistent agitated delirium (UTI may be chronic) superimposed onto dementia with behavioral disturbance, however this may be closer to patients baseline than initially believed. Overall, I spent a total of 30 minutes with this case, including review of chart, direct evaluation of the patient (though this was very limited today due to agitation), reviewing & recommending medication, coordination with nursing,coordination of care with hospitalist service, risk assessment, and documentation. (1) Delirium due to another medical condition, persistent, hyperactive: Unclear if this is actively present and contributing to presentation or if this is close to patients baseline, will need to elucidate further. (2) Unspecified dementia, mild, with other behavioral disturbance: Plan 11/30/23: Recommended Zyprexa 5mg IM Q2H PRN agitation, max 2 doses/24 hours Would order another dose of Zyprexa 2.5mg IM now as patient remains agitated and requiring several security officers to manage due to safety risk Also recommend switching risperidone to Zyprexa 2.5mg BID via PO, with Zyprexa 2.5mg IM BIDPRN PO refusal as patient has been willing to take IM even when he refuses PO D/C risperidone Given switch to Zyprexa would check EKG in the AM & again on 11/30 and 12/01 to ensure no QTc prolongation, after that can likely monitor weekly if still here 11/27/23: Discussed risks vs benefits with patient & granddaughter (who also discussed it with her mom/his daughter) - patients ability to understand was limited however he did want to take something that could help settle him a bit as he was feeling distressed intermittently - discussed risk of sudden in the elderly with dementia with antipsychotic use, discussed using lowest effective dose to minimize risk and improve quality of life for patient as his worsening behavioral disturbances and aggression have been significantly impacting his life in a negative way Risk Factors Assessment Male: Yes : Yes Do You Have Access To A Gun?: No Health Problems: Yes Mental Health Diagnoses: No Substance Use Disorders: No Previous Attempt: No Family History of Suicide: No Previous Psychiatric Hospitalization: No Hopelessness: No Protective Factors Assessment Sabianism Beliefs: Yes (unknown to what degree) : No Responsible for Young Children: No Employed: No Stable Relationships: Yes Supportive Family: Yes Good Rapport with Provider: No Absence of Any Risk Factors Above: Yes Interval History Identifying Information 83 yr old M presenting with worsening behavioral disturbances in the context of what sounds like rapidly progressing dementia. Psychiatry was consulted for help with management of behavioral disturbances. Chief Complaint Unable to speak to patient directly as he was in room being calmed by several security officers - direct interview would pose too high a rsk of further agitating patient and potentially escalating behaviors. Patient has been difficult to manage behaviorally. Initially was taking risperidone and was calm and redirectable, however stopped taking PO medications and has quickly become increasingly more agitated and aggressive (consistent with prior report from family as to his baseline). Patient did receive IM Zyprexa about 30-40 minutes prior but no discernible change observed, is requiring several security officers to be present in order to maintain safety of both patient and others. Patient can be heard yelling at security in his room, making statements about staff wanting to harm him so quite paranoid. Subjective Subjective Patient was seen & assessed and interval progress reviewed with attending physician and nursing. Physical Exam Psychiatric Orientation: + uncooperative Apperance: appropriately dressed and appropriately groomed Eye Contact: + poor eye contact Motor Behavior: + psychomotor agitation Speech: + loud speech Affect: + labile affect, + irritable affect and + angry affect Mood: + irritable mood Thought Process: + perseveration Thought Content: + paranoid unable to assess directly at this time but no evidence of suicidal thoughts or intent observed during hospital stay thus far unable to assess directly at this time but no evidence of homicidal intent while here thus far, though has been intermittently aggressive in context of paranoia unable to assess directly today but has not been seen talking to self or internally preoccupied unable to assess directly today but is not oriented at baseline due to dementia Estimated Intelligence: average estimated intelligence Insight: + poor insight Judgment: + poor judgement Vital Signs (Past 24 Hours) Last Vital Signs Temp 36.6 C 11/29/23 19:53 Pulse 84 11/29/23 19:53 Resp 18 11/29/23 19:53 BP 122/76 11/29/23 19:53 Pulse Ox 95 11/29/23 19:53 O2 Del Method Room Air 11/29/23 19:53 A physical exam was performed in the ED by Dr. David for the purposes of medical clearance. I accept that physical as correct and adequate for the purposes of the inpatient physical exam. Results & Data ([facility]) Laboratory Results Laboratory Results - last 24 hr 11/29/23 11/30/23 16:22 11:50 POC Glucose 131 H 101 H Current Inpatient Medications Current Inpatient Medications: Current Inpatient Medications Acetaminophen (Acetaminophen 500 Mg Tab) 1,000 mg PO Q8 DIANA Stop: 12/25/23 23:06 Last Admin: 11/30/23 13:04 Dose: 1,000 mg Dextrose (Dextrose 50% 50 Ml Syringe) 25 - 50 ml IV UD PRN; Protocol PRN Reason: Hypoglycemia Protocol Stop: 12/27/23 09:22 Donepezil HCl (Donepezil Hcl 10 Mg Tab) 10 mg PO PM DIANA Stop: 12/25/23 23:06 Last Admin: 11/29/23 20:19 Dose: Not Given Duloxetine HCl (Duloxetine Hcl 30 Mg Cap) 30 mg PO DAILY DIANA Stop: 12/26/23 08:59 Last Admin: 11/30/23 08:30 Dose: Not Given Enoxaparin Sodium (Enoxaparin Inj 40 Mg/0.4 Ml Syr) 40 mg SQ QAM DIANA Stop: 12/27/23 08:59 Last Admin: 11/30/23 08:50 Dose: 40 mg Finasteride (Finasteride 5 Mg Tab) 5 mg PO DAILY DIANA Stop: 12/26/23 08:59 Last Admin: 11/30/23 08:30 Dose: Not Given Glucagon (Glucagon For Inj 1 Mg Vial) 1 mg SQ UD PRN; Protocol PRN Reason: Hypoglycemia Protocol Stop: 12/27/23 09:22 Glucose (Glucose 40% Gel 15 Gm Tube) 15 - 30 gm PO UD PRN; Protocol PRN Reason: Hypoglycemia Protocol Stop: 12/27/23 09:22 Glucose (Glucose 10 Tab/Tube) 4 - 8 tab PO UD PRN; Protocol PRN Reason: Hypoglycemia Treatment Stop: 12/27/23 09:22 Insulin Aspart (Insulin Aspart Per Unit Charge) 0 units SC ACHS DIANA Stop: 12/27/23 11:29 Last Admin: 11/30/23 12:33 Dose: Not Given Levothyroxine Sodium (Levothyroxine Sodium 50 Mcg Tablet) 50 mcg PO DAILYBB DIANA Stop: 12/27/23 06:29 Last Admin: 11/30/23 05:36 Dose: Not Given Lisinopril (Lisinopril 10 Mg Tab) 10 mg PO DAILY DIANA Stop: 12/26/23 18:59 Last Admin: 11/30/23 08:30 Dose: Not Given Miscellaneous (Carbohydrates For Hypoglycemia ) 15 - 30 gm PO UD PRN PRN Reason: Hypoglycemia Protocol Stop: 12/27/23 09:22 Multivitamins/Minerals (Cerovite Adv Formula Tab) 1 tab PO QAM DIANA Stop: 12/29/23 08:59 Last Admin: 11/30/23 08:30 Dose: Not Given Pantoprazole Sodium (Pantoprazole 40 Mg Tab) 40 mg PO DAILY DIANA Stop: 12/26/23 08:59 Last Admin: 11/30/23 08:30 Dose: Not Given Risperidone (Risperidone 0.5 Mg Tablet) 0.5 mg PO PM DIANA Stop: 12/27/23 20:59 Last Admin: 11/29/23 20:20 Dose: Not Given Risperidone (Risperidone 0.25 Mg Tab) 0.25 mg PO QAM DIANA Stop: 12/28/23 08:59 Last Admin: 11/30/23 08:29 Dose: Not Given Risperidone (Risperidone Odt 0.5 Mg Soltab) 0.5 mg PO BID PRN PRN Reason: Anxiety/Agitation Stop: 12/27/23 15:25 Last Admin: 11/30/23 13:04 Dose: 0.5 mg Simvastatin (Simvastatin 40 Mg Tab) 40 mg PO HS DIANA Stop: 12/26/23 20:59 Last Admin: 11/29/23 20:20 Dose: Not Given Vitamin B Complex (Vitamin B Complex Tab) 1 tab PO QAM DIANA Stop: 12/29/23 08:59 Last Admin: 11/30/23 08:28 Dose: Not Given
[2023-12-01] MEDS: OLANZAPINE 2.5 MG TAB PO SCH (00:09)
[2023-12-01] MEDS: OLANZapine 10 MG/2.1 ML SDV IM PRN (08:54)
--- NOTE | 2023-12-01 10:52 | Hospitalist Progress Note ---
Date of Service December 01, 2023 Assessment & Plan (1) Agitation: (2) Dementia: (3) Hypertension: (4) Dyslipidemia: (5) Type 2 diabetes mellitus: (6) GERD (gastroesophageal reflux disease): (7) Chronic pain: Plan 83-year-old male with past medical history of dementia, type 2 diabetes mellitus, essential hypertension, hyperlipidemia, chronic pain with myofascial pain who presents to the ED with progressively worsening symptoms of agitation and worsening of dementia. As per patient's granddaughter Jamilah: Patient has not taken his medications in several weeks #Agitation #Progressing dementia Psychiatry saw the patient Psychiatry initially had recommended trial of risperidone 0.25 mg in a.m. and 0.5 mg at bedtime with risperidone 0.25 mg every 12 hours as needed acute agitation Patient's agitation is escalating: Psychiatry saw the patient yesterday in follow-up and recommended stopping risperidone and switching to Zyprexa 2.5 mg p.o. twice daily along with Zyprexa 2.5 mg IM twice daily as needed for p.o. refusal Psychiatry is recommended checking EKG today and tomorrow to ensure no QTc prolongation. Patient refused EKG Given escalating behaviors: Will give Zyprexa 2.5 mg IM now since patient refusing oral medication Reattempt checking EKG in a.m. tomorrow Continue Aricept B12 255 TSH is 4.963 Free T4 is 0.55 QTc B is 464 Await psychiatry follow-up today and further recommendations #New diagnosis of hypothyroidism TSH is 4.963 Free T4 is low at 0.55 Continue levothyroxine 50 mcg p.o. daily in a.m. #Essential hypertension #Hyperlipidemia Continue lisinopril 10 mg p.o. daily with hold parameters Continue statin Monitor LFTs intermittently #Type 2 diabetes mellitus A1c 6.7 Accu-Cheks before every meal and nightly with sliding scale insulin coverage Monitor glycemic control #Chronic pain/myofascial pain #Left knee arthritis Continue Tylenol 1 g 3 times daily Continue Cymbalta #Vitamin B12 deficiency Patient initially received IM vitamin B12 replacement and is now on oral replacement #History of alcohol use Patient has not had vodka in 5 days since admission He does not appear to be in withdrawal at this point LFTs are stable CODE STATUS: DNR/DNI DVT prophylaxis: Lovenox 40 mg subcutaneous daily Discharge planning to memory care unit when bed available Care plan discussed with nursing staff, case management. daughter Barbra Hernandez ([phone]) updated at bedside Admission and Anticipated Discharge Date Admission Date: November 25, 2023 Subjective Patient really agitated this morning Refused to take oral medications He is agreeable to taking IM Zyprexa now Patient refused oral Zyprexa last night but nursing staff did not give him IM Zyprexa as ordered even though he was agitated Patient with dementia and agitation unable to get a full review of systems Psychiatry recommendations reviewed from yesterday Physical Exam Physical Exam: General: Agitated Psych: Awake and oriented to self only HEENT: Anicteric sclera, moist oral mucosa CVS: Regular rate and rhythm Lungs: Bilateral air entry, no wheezing noted Abdomen: Soft, nontender, no rebound, no guarding Ext: No lower extremity edema Results & Data Results & Data Vital Signs (Past 12 Hours) Vital Signs Temp Pulse Resp BP Pulse Ox O2 Del Method 12/01/23 07:52 36.5 C 78 18 158/70 H 94 Room Air Laboratory Results Laboratory Results - last 24 hr 11/30/23 12/01/23 11:50 07:51 POC Glucose 101 H 138 H PG Care Time/CCT Total # of Minutes Spent Total Time Spent with Patient: Total time spent is greater than 50% in coordination of care (as documented) at patient's floor/unit and/or counseling patient: Coding Level of Care Code 07502 SUB INP/OBS CARE 2/35MIN Diagnoses Agitation R45.1 Dementia F03.90 Dementia behavioral or psychological symptom: unspecified whether behavioral, psychotic, or mood disturbance or anxiety Dementia severity: unspecified severity Dementia type: unspecified type Hypertension I10 Dyslipidemia E78.5 Type 2 diabetes mellitus E11.9 GERD (gastroesophageal reflux disease) K21.9 Chronic pain G89.29 (2) Dementia Dementia behavioral or psychological symptom: unspecified whether behavioral, psychotic, or mood disturbance or anxiety Dementia severity: unspecified severity Dementia type: unspecified type Qualified Code(s): F03.90 - Unspecified dementia, unspecified severity, without behavioral disturbance, psychotic disturbance, mood disturbance, and anxiety
[2023-12-01] MEDS: OLANZapine 10 MG/2.1 ML SDV IM STA ×2 (11:02→16:12)
--- NOTE | 2023-12-01 13:38 | Psychiatric Progress Note ---
Date of Service December 01, 2023 Impression / Recommendations Impression Initially suspected a persistent agitated delirium (UTI may be chronic) superimposed onto dementia with behavioral disturbance, however as patient has now been here for some time and receiving treatment, his behavioral disturbance persists and I suspect that this is likely his baseline. Overall, I spent a total of 75 minutes with this case, including review of chart, direct evaluation of the patient, communication with family, ordering medication, coordination with nursing,coordination of care with hospitalist service, risk assessment, and documentation. (1) Dementia, unspecified, with behavioral disturbance: (2) Delirium due to another medical condition, persistent, hyperactive: Suspect this is minimally affecting symptoms at this time, if at all Plan 12/02/23: Would hold PO medications for the time being Would schedule Zyprexa 2.5mg AM IM & 5mg HS IM as standing orders with plan to transition to PO once symptoms stabilized Can continue Zyprexa 5mg IM Q2H PRN agitation, max 2 doses/24 hours Placement in long-term care facility delayed due to need for stability in behavioral disturbances 12/01/23: Recommend Zyprexa 5mg IM now order as patient becoming increasingly more agitated and difficult to redirect - he is agreeable to (and prefers) IM medication at this time. Next of kin (daughter) is aware of the medication plan and in agreement as he cannot get placed in [facility] until behaviorally stable. Recommend Zyprexa 2.5mg IM HS tonight (since he is receiving 5mg now) - starting tomorrow: Zyprexa 2.5mg AM IM/5mg HS IM - would d/c or hold PO medication at this time as patient refusing it and requesting IM administration. Will reassess for appropriateness to resume PO 11/30/23: Recommended Zyprexa 5mg IM Q2H PRN agitation, max 2 doses/24 hours Would order another dose of Zyprexa 2.5mg IM now as patient remains agitated and requiring several security officers to manage due to safety risk Also recommend switching risperidone to Zyprexa 2.5mg BID via PO, with Zyprexa 2.5mg IM BIDPRN PO refusal as patient has been willing to take IM even when he refuses PO D/C risperidone Given switch to Zyprexa would check EKG in the AM & again on 11/30 and 12/01 to ensure no QTc prolongation, after that can likely monitor weekly if still here 11/27/23: Discussed risks vs benefits with patient & granddaughter (who also discussed it with her mom/his daughter) - patients ability to understand was limited however he did want to take something that could help settle him a bit as he was feeling distressed intermittently - discussed risk of sudden in the elderly with dementia with antipsychotic use, discussed using lowest effective dose to minimize risk and improve quality of life for patient as his worsening behavioral disturbances and aggression have been significantly impacting his life in a negative way Risk Factors Assessment Do You Have Access To A Gun?: No Interval History Identifying Information 83 yr old M presenting with worsening behavioral disturbances in the context of what sounds like rapidly progressing dementia. Psychiatry was consulted for help with management of behavioral disturbances. Chief Complaint "When can I leave already?". Subjective Subjective Patient was seen & assessed and interval progress reviewed with nursing and attending physician. Patient has been consistently refusing PO medications, however expressing agreement (and in fact a preference) for IM medication instead. Patient has progressive dementia and does have difficulty with understanding medication discussion, however his daughter (next of kin) is present and was agreeable to this following discussion or risks vs benefits. It seems that there is a facility in [place] with a big [place]it[place] speaking population and patients family wants him to go there, however he is unable to be placed as long as he remains agitated and in need of PRNs. Spoke to patients daughter outside of room, she reports that this level of agitation and aggression has been his baseline for quite some time now, with progressive worsening. Even family is unable to redirect him when he becomes agitated like this and family prefers IM medication administration if this allows him to settle and be transferred to a longterm facility where his behavioral disturbances can be further stabilized. Patient is unable to participate in meaningful exam, perseverates on leaving the hospital - at times knows hes in some sort of facility, other times thinks he's home or in [place]. Although he has periods of being calm, he will suddenly become irritable and voice will escalate. Notable paranoia contributing to this - he and I were initially having a pleasant discussion and he was requesting that I stay to talk longer, then suddenly became quite angry and accused me of trying to kill him (told me to then leave immediately). Discussed case with nursing and attending physician, would for the time being maintain him on standing IM medication with goal of transitioning to PO once he has been consistently calm. <y concern is that while he is in this state, cont inuing to initially offer PO will contribute to agitation further and make even IM administration more difficult. Physical Exam Psychiatric Orientation: + uncooperative Apperance: appropriately dressed and appropriately groomed Eye Contact: + fair eye contact Motor Behavior: + psychomotor agitation Speech: + loud speech Affect: + labile affect, + irritable affect and + angry affect Mood: + irritable mood Thought Process: + perseveration Thought Content: + paranoid Suicidal Thoughts: denies suicidal thoughts Homicidal Thoughts: denies homicidal thoughts Hallucinations: no auditory hallucinations and no visual hallucinations Cognition: language grossly intact; + recent memory not intact, + remote memory not intact and + attention not intact Estimated Intelligence: average estimated intelligence Insight: + poor insight Judgment: + poor judgement Vital Signs (Past 24 Hours) Last Vital Signs Temp 36.5 C 12/01/23 07:52 Pulse 78 12/01/23 07:52 Resp 18 12/01/23 07:52 BP 158/70 H 12/01/23 07:52 Pulse Ox 94 12/01/23 07:52 O2 Del Method Room Air 12/01/23 07:52 A physical exam was performed in the ED by Dr. David for the purposes of medical clearance. I accept that physical as correct and adequate for the purposes of the inpatient physical exam. Results & Data (U) Laboratory Results Laboratory Results - last 24 hr 12/01/23 07:51 POC Glucose 138 H Current Inpatient Medications Current Inpatient Medications: Current Inpatient Medications Acetaminophen (Acetaminophen 500 Mg Tab) 1,000 mg PO Q8 DIANA Stop: 12/25/23 23:06 Last Admin: 12/01/23 05:58 Dose: Not Given Dextrose (Dextrose 50% 50 Ml Syringe) 25 - 50 ml IV UD PRN; Protocol PRN Reason: Hypoglycemia Protocol Stop: 12/27/23 09:22 Donepezil HCl (Donepezil Hcl 10 Mg Tab) 10 mg PO PM DIANA Stop: 12/25/23 23:06 Last Admin: 12/01/23 00:09 Dose: Not Given Duloxetine HCl (Duloxetine Hcl 30 Mg Cap) 30 mg PO DAILY DIANA Stop: 12/26/23 08:59 Last Admin: 12/01/23 08:48 Dose: Not Given Enoxaparin Sodium (Enoxaparin Inj 40 Mg/0.4 Ml Syr) 40 mg SQ QAM DIANA Stop: 12/27/23 08:59 Last Admin: 12/01/23 08:48 Dose: Not Given Finasteride (Finasteride 5 Mg Tab) 5 mg PO DAILY DIANA Stop: 12/26/23 08:59 Last Admin: 12/01/23 08:48 Dose: Not Given Glucagon (Glucagon For Inj 1 Mg Vial) 1 mg SQ UD PRN; Protocol PRN Reason: Hypoglycemia Protocol Stop: 12/27/23 09:22 Glucose (Glucose 40% Gel 15 Gm Tube) 15 - 30 gm PO UD PRN; Protocol PRN Reason: Hypoglycemia Protocol Stop: 12/27/23 09:22 Glucose (Glucose 10 Tab/Tube) 4 - 8 tab PO UD PRN; Protocol PRN Reason: Hypoglycemia Treatment Stop: 12/27/23 09:22 Insulin Aspart (Insulin Aspart Per Unit Charge) 0 units SC ACHS DIANA Stop: 12/27/23 11:29 Last Admin: 12/01/23 12:48 Dose: Not Given Levothyroxine Sodium (Levothyroxine Sodium 50 Mcg Tablet) 50 mcg PO DAILYBB [facility] Stop: 12/27/23 06:29 Last Admin: 12/01/23 05:59 Dose: Not Given Lisinopril (Lisinopril 10 Mg Tab) 10 mg PO DAILY DIANA Stop: 12/26/23 18:59 Last Admin: 12/01/23 08:48 Dose: Not Given Miscellaneous (Carbohydrates For Hypoglycemia ) 15 - 30 gm PO UD PRN PRN Reason: Hypoglycemia Protocol Stop: 12/27/23 09:22 Multivitamins/Minerals (Cerovite Adv Formula Tab) 1 tab PO QAM DIANA Stop: 12/29/23 08:59 Last Admin: 12/01/23 08:48 Dose: Not Given Olanzapine (Olanzapine 2.5 Mg Tab) 2.5 mg PO BID DIANA Stop: 12/30/23 20:59 Last Admin: 12/01/23 08:48 Dose: Not Given Olanzapine (Olanzapine 10 Mg/2.1 Ml Sdv) 2.5 mg IM BID PRN PRN Reason: IF PATIENT REFUSES ORAL ZYPREX Stop: 12/30/23 20:59 Last Admin: 10/09/24 08:54 Dose: 2.5 mg Olanzapine (Olanzapine 10 Mg/2.1 Ml Sdv) 5 mg IM NOW STA Stop: 12/01/23 13:29 Pantoprazole Sodium (Pantoprazole 40 Mg Tab) 40 mg PO DAILY DIANA Stop: 12/26/23 08:59 Last Admin: 12/01/23 08:48 Dose: Not Given Simvastatin (Simvastatin 40 Mg Tab) 40 mg PO HS DIANA Stop: 12/26/23 20:59 Last Admin: 11/30/23 23:26 Dose: Not Given Vitamin B Complex (Vitamin B Complex Tab) 1 tab PO QAM DIANA Stop: 12/29/23 08:59 Last Admin: 12/01/23 08:49 Dose: Not Given
[2023-12-01] MEDS: OLANZapine 10 MG/2.1 ML SDV IM SCH (21:38)
[2023-12-02] MEDS: OLANZapine 10 MG/2.1 ML SDV IM SCH (07:45)
[2023-12-02 07:57] LABS: Hematocrit (blood only) 42.1 % (42.0-52.0); Hemoglobin 14.5 g/dl (14.0-18.0); Mean Corpuscular Hemoglobin 28.5 pg (25.0-34.0); Mean Corpuscular Hgb Conc 34.4 g/dL (32.0-36.0); Mean Corpuscular Volume 82.9 fL (80.0-100.0); Mean Platelet Volume 9.9 fL (9.4-12.4); Platelet Count 215 K/uL (130-400); RDW Coefficient of Variation 13.3 % (11.5-14.5); RDW Standard Deviation 40.2 fL (36.4-46.3); Red Blood Count 5.08 M/uL (4.70-6.10); White Blood Count 7.02 K/ul (4.8-10.8)
[2023-12-02 08:14] LABS: Albumin Globulin Ratio 1.8 (0.9-2); BUN Creatinine Ratio 23.4 (10-20); Bilirubin,Total 0.7 mg/dl (0.2-1.0); Calcium 9.1 mg/dl (8.6-10.3); Creatinine Clr Calc Pharmacy 47.2 ml/min; Globulin 2.2 gm/dl (2.5-4.0); Magnesium 1.8 mg/dl (1.7-2.4); Potassium 4.2 mmol/L (3.5-5.1); Total Protein 6.2 gm/dl (6.0-8.3)
--- NOTE | 2023-12-02 12:05 | Hospitalist Progress Note ---
Date of Service December 02, 2023 Assessment & Plan (1) Dementia: Plan: Presented to the ED with progressively worsening symptoms of agitation and worsening of dementia - Psychiatry initially had recommended trial of risperidone 0.25 mg in a.m. and 0.5 mg at bedtime with risperidone 0.25 mg every 12 hours as needed acute agitation - Patient's agitation is escalating: Psychiatry saw the patient yesterday in follow-up and recommended stopping risperidone and switching to Zyprexa 2.5 mg p.o. twice daily along with Zyprexa 2.5 mg IM twice daily as needed for p.o. refusal > Psychiatry is recommended checking EKG today and tomorrow to ensure no QTc prolongation. Patient continues to refuse EKG. Reattempt checking EKG in a.m. tomorrow > Last EKG on 11/27 showed QTc of 464 - Continue Aricept - B12 WNL -- Patient initially received IM vitamin B12 replacement and is now on oral replacement - New diagnosis of hypothyroidism with TSH high at 4.963, Free T4 low at 0.55 -- started on Synthroid. Recheck in 4-6 weeks - Further recommendations from psychiatry are appreciated (2) Type 2 diabetes mellitus: Plan: A1c 6.7 Accu-Cheks before every meal and nightly with sliding scale insulin coverage Monitor glycemic control (3) Hypertension: Plan: Hypertension / Hyperlipidemia - Continue lisinopril 10 mg p.o. daily with hold parameters - Continue statin - Monitor LFTs intermittently (4) Chronic pain: Plan: Chronic pain/myofascial pain/left knee arthritis - Continue Tylenol 1 g 3 times daily - Continue Cymbalta (5) Alcohol abuse: Plan: History of alcohol use - Patient has not had vodka in 5 days since admission - He has not appeared to be in withdrawal throughout hospitalization - LFTs stable Plan Updated daughter at bedside Discussed case with liaison CODE STATUS: DNR/DNI DVT prophylaxis: Lovenox 40 mg subcutaneous daily Dispo: Discharge planning to memory care unit when bed available Admission and Anticipated Discharge Date Admission Date: November 25, 2023 Subjective Patient seen and evaluated at bedside utilizing [facility] inspector fabric ([place] #NPR[employer]). Patient was very agitated, stating that I was lying when told that I was his provider here to take care of him. Chamfering Machine Operator informed me that patient was not making sense with his sentences, and intermittently was making "nasty comments." I explained why we wanted an EKG given his IM Zyprexa twice daily, however patient continues to refuse. I returned to bedside when patient's daughter was present to provide her an update. Set patient up with his CD player and headphones and got him sitting in bedside chair. Less agitated at that time. No additional complaints at this time. Physical Exam Physical Exam: General: Intermittently agitated. Walks the halls well. Dressed in home clothing. Refusing physical exam. Psych: Awake and oriented to self only Results & Data Results & Data Laboratory Results Reviewed CBC Reviewed CMP PG Care Time/CCT Total # of Minutes Spent Total Time Spent with Patient: Total time spent is greater than 50% in coordination of care (as documented) at patient's floor/unit and/or counseling patient: Coding Level of Care Code 97031 SUB INP/OBS CARE 3/50MIN Diagnoses Dementia F03.90 Dementia behavioral or psychological symptom: unspecified whether behavioral, psychotic, or mood disturbance or anxiety Dementia severity: unspecified severity Dementia type: unspecified type Type 2 diabetes mellitus E11.9 Hypertension I10 Chronic pain G89.29 Alcohol abuse F10.10 (1) Dementia Dementia behavioral or psychological symptom: unspecified whether behavioral, psychotic, or mood disturbance or anxiety Dementia severity: unspecified severity Dementia type: unspecified type Qualified Code(s): F03.90 - Unspecified dementia, unspecified severity, without behavioral disturbance, psychotic disturbance, mood disturbance, and anxiety
--- NOTE | 2023-12-03 09:02 | Hospitalist Progress Note ---
Date of Service December 03, 2023 Assessment & Plan (1) Dementia: Plan: Presented to the ED with progressively worsening symptoms of agitation and worsening of dementia - Psychiatry initially had recommended trial of risperidone 0.25 mg in a.m. and 0.5 mg at bedtime with risperidone 0.25 mg every 12 hours as needed acute agitation - Patient's agitation is escalating: Psychiatry saw the patient in follow-up and recommended stopping risperidone and switching to Zyprexa 2.5 mg p.o. twice daily along with Zyprexa 2.5 mg IM twice daily as needed for p.o. refusal may consider trying exelon patch at 4.6 mg /day PT has not been allowing ecg check for Qtc -refusing all po meds at this time (2) Type 2 diabetes mellitus: Plan: A1c 6.7 refusing meds and checks (3) Hypertension: Plan: Hypertension / Hyperlipidemia typically on liisinopril 10 mg p.o. daily and a statin (4) Chronic pain: Plan: Chronic pain/myofascial pain/left knee arthritis - Continue Tylenol 1 g 3 times daily -try voltaren topical (5) Alcohol abuse: Plan: History of alcohol use - Patient has not had vodka in 5 days since admission - He has not appeared to be in withdrawal throughout hospitalization - LFTs stable Plan disposition will be difficult CODE STATUS: DNR/DNI DVT prophylaxis: Lovenox 40 mg subcutaneous daily Dispo: Discharge planning to memory care unit when bed available Admission and Anticipated Discharge Date Admission Date: November 25, 2023 Subjective pleasant and re directable does not want to take po medications c/o left knee pain Physical Exam Physical Exam: awake conversant confused PG Care Time/CCT Total # of Minutes Spent Total Time Spent with Patient: Total time spent is greater than 50% in coordination of care (as documented) at patient's floor/unit and/or counseling patient: Coding Level of Care Code 08019 SUB INP/OBS CARE 2/35MIN Diagnoses Dementia F03.90 Dementia behavioral or psychological symptom: unspecified whether behavioral, psychotic, or mood disturbance or anxiety Dementia severity: unspecified severity Dementia type: unspecified type Type 2 diabetes mellitus E11.9 Hypertension I10 Chronic pain G89.29 Alcohol abuse F10.10 (1) Dementia Dementia behavioral or psychological symptom: unspecified whether behavioral, psychotic, or mood disturbance or anxiety Dementia severity: unspecified sever ity Dementia type: unspecified type Qualified Code(s): F03.90 - Unspecified dementia, unspecified severity, without behavioral disturbance, psychotic disturbance, mood disturbance, and anxiety
[2023-12-03] MEDS: DICLOFENAC SOD 1% GEL 100 GM TUBE EXT SCH (18:24)
[2023-12-04] MEDS: CeleBREX 200 MG CAP PO ONE (10:25)
--- NOTE | 2023-12-04 10:52 | Hospitalist Progress Note ---
Date of Service December 04, 2023 Assessment & Plan (1) Dementia: Plan: Presented to the ED with progressively worsening symptoms of agitation and worsening of dementia - Psychiatry initially had recommended trial of risperidone 0.25 mg in a.m. and 0.5 mg at bedtime with risperidone 0.25 mg every 12 hours as needed acute agitation - Patient's agitation is escalating: Psychiatry saw the patient in follow-up and recommended stopping risperidone and switching to Zyprexa 2.5 mg p.o. twice daily along with Zyprexa 2.5 mg IM twice daily as needed for p.o. refusal may consider trying exelon patch at 4.6 mg /day PT has not been allowing ecg check for Qtc -refusing all po meds at this time (2) Type 2 diabetes mellitus: Plan: A1c 6.7 refusing meds and checks (3) Hypertension: Plan: Hypertension / Hyperlipidemia typically on liisinopril 10 mg p.o. daily and a statin refuses po meds (4) Chronic pain: Plan: Chronic pain/myofascial pain/left knee arthritis -may permit one dose Celebrex (5) Alcohol abuse: Plan: History of alcohol use - Patient has not had vodka in 5 days since admission - He has not appeared to be in withdrawal throughout hospitalization - LFTs stable Plan disposition will be difficult CODE STATUS: DNR/DNI DVT prophylaxis: refuses Lovenox 40 mg subcutaneous daily Dispo: Discharge planning to memory care unit when bed available Admission and Anticipated Discharge Date Admission Date: November 25, 2023 Subjective pleasant and re directable, focused on left lower leg pain, verbally agreed to take a medicine to help pain, does not permit voltaren cream Physical Exam Physical Exam: awake conversant confused left knee without effusion, ligaments intact, calf non tender no chords, no significant deformity from arthritis PG Care Time/CCT Total # of Minutes Spent Total Time Spent with Patient: Total time spent is greater than 50% in coordination of care (as documented) at patient's floor/unit and/or counseling patient: Coding Level of Care Code 52884 SUB INP/OBS CARE 2/35MIN Diagnoses Dementia F03.90 Dementia behavioral or psychological symptom: unspecified whether behavioral, psychotic, or mood disturbance or anxiety Dementia severity: unspecified severity Dementia type: unspecified type Type 2 diabetes mellitus E11.9 Hypertension I10 Chronic pain G89.29 Alcohol abuse F10.10 (1) Dementia Dementia behavioral or psychological symptom: unspecified whether behavioral, psychotic, or mood disturbance or anxiety Dementia severity: unspecified severity Dementia type: unspecified type Qualified Code(s): F03.90 - Unspecified dementia, unspecified severity, without behavioral disturbance, psychotic disturbance, mood disturbance, and anxiety
[2023-12-04] MEDS ORDERED: ACETAMINOPHEN 500 MG TAB PO PRN (15:44)
[2023-12-04] MEDS: LIDOCAINE 5% 1 PATCH TD STA (17:15)
[2023-12-05] MEDS: LIDOCAINE 5% 1 PATCH TD SCH (09:25)
--- NOTE | 2023-12-05 17:55 | Hospitalist Progress Note ---
Date of Service December 05, 2023 Assessment & Plan (1) Dementia: Plan: Presented to the ED on 11/25/23 with worsening symptoms of agitation in the setting of his dementia He is off all anti-psychotic therapy Although he likes to walk the hallways he is redirectable and not agitated Defer on antipsychotic Rx at this time Appreciate psych assistance earlier in the stay (2) Type 2 diabetes mellitus: Plan: HbA1c 6.7% generally speaking he refuses meds and BSG checks (3) Hypertension: Plan: typically on REGINA inhibitor but has been refusing such despite such most BPs are reasonable at this time (4) Chronic pain: Plan: left knee left tib-fib left knee x-rays from earlier in the admission with OA I increased the voltaren gel to 4gm QID to L knee but by report he refuses such Can use lidoderm patches if he will allow Consider NSAID daily - if he will take it (5) Alcohol abuse: Plan: History of alcohol abuse (Vodka) no etoh withdrawal noted at any time while here Ideally he is on thiamine supplementation but uncertain he will take it (6) Hypothyroidism: Plan: last TSH mildly high will repeat with AM labs he apparently has refused his synthroid as well (7) BPH (benign prostatic hyperplasia): Plan: refuses meds for such Plan DVT prophylaxis: refuses Lovenox 40 mg subcutaneous daily; could consider Eliquis 2.5mg BID or Xarelto 10mg daily but uncertain he will take those either Fortunately he is ambulating all over the 3rd floor Dispo: memory care unit when bed available Admission and Anticipated Discharge Date Admission Date: November 25, 2023 Subjective patient walking the hallways unassisted walking around his room playing classical music in his room very loudly during my visit he talked alot about [place] he did c/o L knee pain and L tib-fib pain he was quite impulsive, at one point jumping up quickly to grab me a chair from the corner of the room Review of Systems Review of Systems: Unobtainable due to cognitive status Physical Exam Physical Exam: gen - WD, WN, NAD mouth - lips moist neck - no JVD heart - RRR, s1 s2, no murmur lungs - CTA b/l abd - soft NT ND BS+ musculo - mild left knee crepitus with passive ROM; wearing REGINA wrap around distal LLE vascular - pulses b/l feet 2+ Results & Data Results & Data Vital Signs (Past 12 Hours) Vital Signs Temp Pulse Resp BP Pulse Ox O2 Del Method 12/05/23 10:26 36.3 C L 87 18 135/73 93 Room Air PG Care Time/CCT Total # of Minutes Spent Total Time Spent with Patient: Total time spent is greater than 50% in coordination of care (as documented) at patient's floor/unit and/or counseling patient: Coding Level of Care Code 14301 SUB INP/OBS CARE 03/18MIN Diagnoses Dementia F03.90 Dementia behavioral or psychological symptom: unspecified whether behavioral, psychotic, or mood disturbance or anxiety Dementia severity: unspecified severity Dementia type: unspecified type Type 2 diabetes mellitus E11.9 Hypertension I10 Chronic pain G89.29 Alcohol abuse F10.10 Hypothyroidism E03.9 BPH (benign prostatic hyperplasia) N40.0 (1) Dementia Dementia behavioral or psychological symptom: unspecified whether behavioral, psychotic, or mood disturbance or anxiety Dementia severity: unspecified se verity Dementia type: unspecified type Qualified Code(s): F03.90 - Unspecified dementia, unspecified severity, without behavioral disturbance, psychotic disturbance, mood disturbance, and anxiety
[2023-12-05] MEDS: DICLOFENAC SOD 1% GEL 100 GM TUBE EXT SCH (21:44)
[2023-12-06] MEDS: LIDOCAINE 5% 1 PATCH TD SCH (09:50)
[2023-12-06] MEDS ORDERED: OLANZapine 10 MG/2.1 ML SDV IM PRN (19:00)
--- NOTE | 2023-12-06 19:29 | Hospitalist Progress Note ---
Date of Service December 06, 2023 Assessment & Plan (1) Dementia, unspecified, with behavioral disturbance: Plan: Presented to the ED on 11/25/23 with worsening symptoms of agitation in the setting of his dementia Earlier in the stay he was on risperdal BID, then changed to zyprexa - but he had been refusing the latter Received 1 dose of IM zyprexa several days ago He has had escalating agitation over the last 24 hours with inappropriate behavior (going into other pt's rooms, bringing strangers into his room, playing music very loudly, etc) He became VERY agitated and was yelling early this evening Re-ordered zyprexa ODT 2.5mg BID with first dose TONIGHT Likely to need larger doses but start at this level IM zyprexa prn ordered if unable to get the ODTs into him With his alcohol abuse consider thiamine supplementation but he will likely refuse it Perhaps he will be more willing to take other PO meds once agitation is better (2) Left leg pain: Plan: Left knee x-rays done early in admission with OA changes only He has been refusing voltaren gel to the knee We gave him ice for the left leg/knee but he took it off almost immediately He had been allowing us to place lidoderm patches on the distal left leg, but during his period of agitation this evening he insisted we take them off (I personally removed them) I ordered CT of left tib-fib and doppler study of LLE - but uncertain he will allow us to get these I can't rule out that he has some sort of neuropathic pain of the LLE but again I doubt he will let us obtain MRI brain, MRI l-spine (or even a CT of l-spine), etc. Of note -- even using [place] pharmacy customer care specialist to explain our care plan he simply is too confused & too agitated to comprehend our recommendations (3) Type 2 diabetes mellitus: Plan: HbA1c 6.7% he refuses meds and most BSG checks cont DM diet (4) Hypertension: Plan: typically on REGINA inhibitor but has been refusing such despite such most BPs are reasonable at this time (5) Chronic pain: Plan: left knee left tib-fib left knee x-rays from earlier in the admission with OA see #1 above was taking celebrex at home pre-admission for OA but, again, refusing most oral meds (6) Alcohol abuse: Plan: History of alcohol abuse (Vodka) no etoh withdrawal noted at any time while here Ideally he is on thiamine supplementation but doubt he will take it (and he does not have an IV to give it parenterally) (7) Hypothyroidism: Plan: last TSH mildly high tried to get repeat labs today -- he refused, and by report he ran the phlebotomy team out of his room daughter states he was refusing to take his synthroid & other PO meds at home (8) BPH (benign prostatic hyperplasia): Plan: refuses meds for such (9) History of colon cancer: Plan: noted Plan DVT prophylaxis: refuses Lovenox 40 mg subcutaneous daily; could consider Eliquis 2.5mg BID or Xarelto 10mg daily but uncertain he will take those either Fortunately he is ambulating all over the 3rd floor (nearly all day he walks) thus DVT risk is low Dispo: memory care unit when bed available I updated the pt's daughter Barbra by phone this evening 15 min phone call I asked Barbra to bring in [place] books and other things for him to pass the time prolonged care time today - 85 minutes spent between 2 separate visits, with 2nd visit being very long due to his agitation etc Admission and Anticipated Discharge Date Admission Date: November 25, 2023 Subjective multiple visits to pt's bedside today first visit was on early afternoon rounds he was listening to classical music he grabbed his suitcase and took out a sleeve of music CDs, offering a Chopin CD to me I graciously declined he has been walking the hallways incessantly today he went into another patient's room and brought his CD player into that room by report he plugged the CD player in and started playing music for that patient, then left the room during my initial rounds he did not complain of anything by report he is eating well it is uncertain when his last bowel movement was - he goes into the bathroom independently and flushes the toilet before anyone can see it late afternoon I was in a different pt's room down the hallway from his room he came to that other pt's room, stood at the doorway, and said "come to my room when you are done" when I got out of the other pt's room he immediately spotted me in the hallway he confronted me in the hallway and started to raise his voice he said something like "you've seen me for over 10 days and you do nothing for my leg" (points to left leg) his nurse and myself brought him into his room he was agitated and started to yell we gave him an ice pack for his left leg after 10 minutes of the ice pack being on his leg he took it off [place] Instructor [employer] was brought up on the iPad he was very upset, yelling at the pharmacy customer care specialist in a loud voice and talking very fast in [place] the pharmacy customer care specialist said he was saying over and over that no one here was helping him pharmacy customer care specialist also said he was saying other things that didn't make sense thru the pharmacy customer care specialist I told Mr Chavira we were happy to take x-rays/etc of his left leg to find the cause of his pain and that we wanted to give him pain medicine but he kept refusing the medicine the pharmacy customer care specialist said he would do the imaging he continued to yell in [place] at me and the pharmacy customer care specialist I finally left the room as I was concerned that he was going to get physically combative I had the charge nurse call security a dose of zyprexa was ordered STAT Review of Systems Review of Systems: unable to obtain full ROS due to language barrier, confusion, agitation continues to c/o left leg pain, however Physical Exam Physical Exam: gen - WD, WN, NAD; walking unassisted around the room without limp or apparent weakness; first visit he was calm; 2nd visit later in the day -- VERY agitated, yelling mouth - MMM neck - no JVD heart - RRR, s1 s2, no murmur lungs - CTA b/l abd - soft NT ND BS+ musculo - left knee - OA changes grossly; left tib-fib - no obvious deformity; he has venous stasis changes b/l legs; tender to palpation L calf?? vascular - pulses b/l feet 2+ psych - oriented to person only; very agitated on the 2nd visit later in the day Results & Data Results & Data Vital Signs (Past 12 Hours) Vital Signs Temp Pulse Resp BP Pulse Ox O2 Del Method 12/06/23 07:53 36.8 C 75 16 132/77 96 Room Air PG Care Time/CCT Total # of Minutes Spent Total Time Spent with Patient: Total time spent is greater than 50% in coordination of care (as documented) at patient's floor/unit and/or counseling patient: Prolonged Care Time Prolonged Care Time: Yes Total Prolonged Care Time: 85 Coding Level of Care Code 96869 SUB INP/OBS CARE 3/50MIN (25 - SIGNIFICANT, SEPARATELY IDENTIFIABLE ) Diagnoses Dementia, unspecified, with behavioral disturbance F03.918 Left leg pain M79.605 Type 2 diabetes mellitus E11.9 Hypertension I10 Chronic pain G89.29 Alcohol abuse F10.10 Hypothyroidism E03.9 BPH (benign prostatic hyperplasia) N40.0 History of colon cancer Z85.038 Additional Codes Prolonged Care Time - Prolonged Care Time: Yes ([id number])
[2023-12-06] MEDS: OLANZapine ZYDIS 5 MG ORALLY DIS. TAB PO SCH (19:43)
[2023-12-07] MEDS: ACETAMINOPHEN 500 MG TAB PO SCH (09:52)
[2023-12-07] MEDS ORDERED: OLANZapine 10 MG/2.1 ML SDV IM PRN ×2 (11:45→13:12)
--- NOTE | 2023-12-07 13:34 | Hospitalist Progress Note ---
Date of Service December 07, 2023 Assessment & Plan (1) Dementia, unspecified, with behavioral disturbance: Plan: Presented to the ED on 11/25/23 with worsening symptoms of agitation in the setting of his dementia Earlier in the stay he was on risperdal BID, then changed to zyprexa Psychiatry consulted recommended IM olanzapine 2.5 mg in am and 5 mg IM in PM until behavior stabilized. Olanzapine has not been given since 12/01 according to chart review, however, excepting one oral dose 2.5 mg last night. Otherwise has been refusing all meds. Behavioral difficulties seem to have increased since 12/02, requiring security to be called yesterday afternoon. -discussed with Dr. Hand who will reevaluate -has refused labs and EKGs His B12 level was 277 and he was given 1000 mcg IM x 3 doses last week TSH was 4.9 B1 level was ordered but refused lab draw (2) Left leg pain: Plan: Left knee x-rays done early in admission with OA changes only Knee exam is normal and he is walking multiple laps per day on the nursing unit without difficulty. My colleagure ordered LE duplex and CT tib/fib, however, Mr Chavira refused them. I have cancelled because I do not think these are warranted based on the exam and symptoms. He has been refusing voltaren gel, ice, lidoderm even using [place]ian language interpreter to explain our care plan he simply is too confused & too agitated to comprehend our recommendations -offer knee sleeve brace and naproxen, acetaminophen for arthritis pain (3) Type 2 diabetes mellitus: Plan: HbA1c 6.7% stopped BG checks since all recorded <180 and he frequently refuses cont DM diet (4) Hypertension: Plan: typically on REGINA inhibitor but has been refusing despite such most BPs are reasonable at this time (5) Chronic pain: Plan: left knee was taking celebrex at home pre-admission for OA but, again, refusing most oral meds (6) Alcohol abuse: Plan: History of alcohol abuse (Vodka) no etoh withdrawal noted at any time while here Ideally he is on thiamine supplementation but currently refusing meds. 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 Nursing staff report that today he's been fixated on the ID badge reader on the workstation in his room. Midmorning was resting in bed listening to music. He stated there's something wrong with his left leg, indicates L knee. Says my colleague hasn't done any thing about it and that "he's not a doctor" also that the hospital is trying to get money out of him. He had L knee in REGINA wrap which I removed and examined his knee, which was normal. I showed him xray of his knee from last week on the computer. I advised he may be having some arthritis pain and that we can give him medicine for the knee pain and try a sleeve brace. He did not accept this explanation and we had a circular conversation about the knee for 20-30 minutes, which he would not allow to come to a conclusion despite prompting. Initially pleasant and cooperative, but became progressively more agitated. Followed me down hallway twice when I attempted to leave and was not redirectable. Finally I left the nursing unit and he remained on the unit. Physical Exam Physical Exam: PHYSICAL EXAMINATION Last 24h vital signs reviewed, see documentation in flowsheet General: physically well appearing HEENT: Normocephalic, atraumatic, pupils round and equal, sclerae anicteric, no conjunctival injection, moist mucus membranes Lungs: Normal respiratory effort. Heart: deferred Abdomen: nondistended Extremities: Warm, dry, well-perfused. No extremity edema. left knee is normal in appearance with no deformity no swelling or ecchymosis no erythema, nontender to palpation, no significant effusion, normal range of motion, normal stability ant/post and medially/laterally, observed to walk well Neuro: Alert and oriented x self, not to situation, vague responses to questions, face symmetric, moves 4 extremities well, walks well Psych: Thought content is perseverative, not redirectable, makes non-bizarre paranoid statements, increasingly agitated PG Care Time/CCT Total # of Minutes Spent Total Time Spent with Patient: Total time spent is greater than 50% in coordination of care (as documented) at patient's floor/unit and/or counseling patient: Coding Level of Care Code 58854 SUB INP/OBS CARE 2/35MIN Diagnoses Dementia, unspecified, with behavioral disturbance F03.918 Left leg pain M79.605 Type 2 diabetes mellitus E11.9 Hypertension I10 Chronic pain G89.29 Alcohol abuse F10.10 Hypothyroidism E03.9 BPH (benign prostatic hyperplasia) N40.0 History of colon cancer Z85.038
[2023-12-07] MEDS: OLANZapine 10 MG/2.1 ML SDV IM STA (14:09)
[2023-12-07] MEDS: OLANZapine ZYDIS 5 MG ORALLY DIS. TAB PO SCH (14:09)
--- NOTE | 2023-12-07 14:18 | Psychiatric Progress Note ---
Date of Service December 07, 2023 Impression / Recommendations Impression Diagnostically consistent with dementia with behavioral disturbance. Goal in dementia is to avoid medication management of behaviors if possible by maximizing non-pharmacologic strategies for behavioral management. However, given worsening agitation/aggression could consider starting antipsychotic as risk/benefit profile now favors treatment. Note all antipsychotic medications carry black box warning for increased risk of all-cause mortality in setting of dementia. Unfortunately he is refusing most po medications and no longer wants IM medication. Would consider re-offering po antipsychotic and continuing to focus on strategies to help distract and settle his concerns about his knee. Overall, I spent a total of 60 minutes with this case including review of chart records, review of labwork, review of EKG QTc, direct evaluation of the patient at bedside, counseling the patient, discussion of the patient with the Nurse and with the hospitalist provider, discussion with the psychiatric liason during clinical rounds and documentation in the electronic health record. (1) Dementia, unspecified, with behavioral disturbance: Plan 12/07/2023: -Consider offering scheduled olanzapine 5mg HS po vs Seroquel 50mg HS po vs Abilify 5mg qAM po to help lessen his periods of agitation and fixation on knee issue OR could consider clonidine patch 0.1mg TD as he may be more likely to allow this -Focus on options for non-pharmacological intervention such as offering Voltaren gel, knee brace, pain medication, ice or heat, or other interventions he may have used in the past (daughter may be able to speak to any beliefs about joint care/supplements/interventions he would have used prior to dementia development) -Continue to use music, movement and other strategies to help maintain appropriate behaviors -For behavioral emergency would use: olanzapine 2.5 mg or 5 mg IM x 1 (DO NOT exceed 10mg per 24 hours, check EKG if IM dose required, NEVER co-administer with IM or IV benzodiazepines). Risk Factors Assessment Male: Yes : Yes Do You Have Access To A Gun?: No Health Problems: Yes Mental Health Diagnoses: No Substance Use Disorders: No Previous Attempt: No Family History of Suicide: No Previous Psychiatric Hospitalization: No Hopelessness: No Protective Factors Assessment Mormon Beliefs: Yes (unknown to what degree) : No Responsible for Young Children: No Employed: No Stable Relationships: Yes Supportive Family: Yes Good Rapport with Provider: No Absence of Any Risk Factors Above: Yes Interval History Identifying Information 83 yr old man presenting with worsening behavioral disturbances in the context of what sounds like rapidly progressing dementia. Psychiatry was consulted for help with management of behavioral disturbances. Chief Complaint "They are stupid, see my knee". Subjective Subjective Patient was seen & assessed and interval progress reviewed. Lolly has been declining medications and at times wandering into other patients rooms. He e njoys walking in the halls and has been quite pleasant today per RN. However, yesterday and today he got frustrated with the providers due to some unclear left knee issue he believes needs to be fixed. He allowed some knee imaging but is declining most pain medications, Voltaren gel and other offers to address his concerns. Today he is very polite with me, moves chairs in his room inviting me to sit down, and speaks about some of his life events (moving from [place] to the , his daughters). However, he becomes more irritable when discussing his frustration with "stupid" doctors for not addressing his concern about his left knee. It's unclear what this concern is, he cannot identify if he is having pain rather keeps showing me the sides of his knee and telling me he used to jump "9 meters, you see?". He is unwilling to consider taking any medication to help with this, shakes his head stating frustration with "Jocelyn is all about money now" but is pleasant as I leave, states his desire to keep walking laps in the hallway. Physical Exam Vital Signs (Past 24 Hours) Last Vital Signs Temp 36.8 C 12/06/23 07:53 Pulse 75 12/06/23 07:53 Resp 16 12/06/23 07:53 BP 132/77 12/06/23 07:53 Pulse Ox 96 12/06/23 07:53 O2 Del Method Room Air 12/06/23 07:53 Results & Data ([facility]) Current Inpatient Medications Current Inpatient Medications: Current Inpatient Medications Acetaminophen (Acetaminophen 500 Mg Tab) 1,000 mg PO TID DIANA Stop: 01/06/24 08:59 Last Admin: 12/07/23 09:52 Dose: Not Given Dextrose (Dextrose 50% 50 Ml Syringe) 25 - 50 ml IV UD PRN; Protocol PRN Reason: Hypoglycemia Protocol Stop: 12/27/23 09:22 Diclofenac Sodium (Diclofenac Sod 1% Gel 100 Gm Tube) 4 gm EXT BID DIANA; Protocol Stop: 01/04/24 20:59 Last Admin: 12/07/23 09:52 Dose: Not Given Donepezil HCl (Donepezil Hcl 10 Mg Tab) 10 mg PO PM [facility] Stop: 12/25/23 23:06 Last Admin: 12/02/23 22:36 Dose: Not Given Duloxetine HCl (Duloxetine Hcl 30 Mg Cap) 30 mg PO DAILY DIANA Stop: 12/26/23 08:59 Last Admin: 12/02/23 07:44 Dose: Not Given Enoxaparin Sodium (Enoxaparin Inj 40 Mg/0.4 Ml Syr) 40 mg SQ QAM [facility] Stop: 12/27/23 08:59 Last Admin: 12/02/23 07:44 Dose: Not Given Finasteride (Finasteride 5 Mg Tab) 5 mg PO DAILY [facility] Stop: 12/26/23 08:59 Last Admin: 12/02/23 07:44 Dose: Not Given Glucagon (Glucagon For Inj 1 Mg Vial) 1 mg SQ UD PRN; Protocol PRN Reason: Hypoglycemia Protocol Stop: 12/27/23 09:22 Glucose (Glucose 40% Gel 15 Gm Tube) 15 - 30 gm PO UD PRN; Protocol PRN Reason: Hypoglycemia Protocol Stop: 12/27/23 09:22 Glucose (Glucose 10 Tab/Tube) 4 - 8 tab PO UD PRN; Protocol PRN Reason: Hypoglycemia Treatment Stop: 12/27/23 09:22 Levothyroxine Sodium (Levothyroxine Sodium 50 Mcg Tablet) 50 mcg PO DAILYBB [facility] Stop: 12/27/23 06:29 Last Admin: 12/03/23 06:11 Dose: Not Given Lidocaine (Lidocaine 5% 1 Patch) 2 patch TD QAM [facility] Stop: 01/05/24 08:59 Last Admin: 12/07/23 09:53 Dose: Not Given Lisinopril (Lisinopril 10 Mg Tab) 10 mg PO DAILY [facility] Stop: 12/26/23 18:59 Last Admin: 12/02/23 07:44 Dose: Not Given Miscellaneous (Carbohydrates For Hypoglycemia ) 15 - 30 gm PO UD PRN PRN Reason: Hypoglycemia Protocol Stop: 12/27/23 09:22 Miscellaneous (Remove Lidoderm Patch) 1 each N/A DAILY@2100 [facility] Stop: 01/03/24 20:59 Last Admin: 12/06/23 19:49 Dose: Not Given Multivitamins/Minerals (Cerovite Adv Formula Tab) 1 tab PO QAM [facility] Stop: 12/29/23 08:59 Last Admin: 12/02/23 07:44 Dose: Not Given Naproxen (Naproxen 250 Mg Tab) 250 mg PO BID [facility]IA[facility] Stop: 12/09/23 21:01 Pantoprazole Sodium (Pantoprazole 40 Mg Tab) 40 mg PO DAILY [facility] Stop: 12/26/23 08:59 Last Admin: 12/02/23 07:44 Dose: Not Given Simvastatin (Simvastatin 40 Mg Tab) 40 mg PO HS [facility] Stop: 12/26/23 20:59 Last Admin: 12/02/23 22:36 Dose: Not Given Vitamin B Complex (Vitamin B Complex Tab) 1 tab PO QAM [facility] Stop: 12/29/23 08:59 Last Admin: 12/02/23 07:44 Dose: Not Given
[2023-12-07] MEDS: NAPROXEN 250 MG TAB PO SCH (16:02)
[2023-12-07] MEDS ORDERED: OLANZapine ZYDIS 5 MG ORALLY DIS. TAB PO SCH (21:00)
[2023-12-08] MEDS ORDERED: OLANZapine 10 MG/2.1 ML SDV IM SCH (09:00)
--- NOTE | 2023-12-08 14:37 | Hospitalist Progress Note ---
Date of Service December 08, 2023 Assessment & Plan (1) Dementia, unspecified, with behavioral disturbance: Plan: Presented to the ED on 11/25/23 with worsening symptoms of agitation in the setting of his dementia, refusal of meds at home Earlier in the stay he was agreeable to meds, but has been refusing for several days now Olanzapine has not been given since 12/01 according to chart review, excepting one oral dose evening of 12/05. -provider visits seem to agitate him since he perseverates on his L knee -has refused labs and EKGs His B12 level was 277 and he was given 1000 mcg IM x 3 doses last week TSH was 4.9 B1 level was ordered but refused lab draw (2) Left leg pain: Plan: Left knee x-rays done early in admission with OA changes only Knee exam is normal and he is walking multiple laps per day on the nursing unit without difficulty. My colleagure ordered LE duplex and CT tib/fib, however, Mr Chavira refused them. I have cancelled because I do not think these are warranted based on the exam and symptoms. He has been refusing voltaren gel, ice, lidoderm, and oral medications like acetaminophen and nsaids. Usually takes celebrex for arthritis at home even using Iranian transition manager to explain our care plan he simply is too confused & too agitated to comprehend our recommendations -tried knee brace that we have available in hospital but he could not tolerate -offer celebrex, acetaminophen for arthritis pain (3) Type 2 diabetes mellitus: Plan: HbA1c 6.7% stopped BG checks since all recorded <180 and he frequently refuses cont DM diet (4) Hypertension: Plan: typically on REGINA inhibitor but has been refusing despite such most BPs are reasonable at this time (5) Chronic pain: Plan: left knee was taking celebrex at home pre-admission for OA but, again, refusing most oral meds (6) Alcohol abuse: Plan: History of alcohol abuse (Vodka) no etoh withdrawal noted at any time while here Ideally he is on thiamine supplementation but currently refusing meds. B1 level ordered but refused lab draw (7) Hypothyroidism: Plan: last TSH mildly high daughter states he was refusing to take his synthroid & other PO meds at home (8) BPH (benign prostatic hyperplasia): Plan: refuses meds for such (9) History of colon cancer: Plan: noted Plan DVT prophylaxis: refusing all medications, ambulating very frequently so risk is low Dispo: memory care unit when bed available updated the pt's daughter Barbra by phone pm of 12/05 Admission and Anticipated Discharge Date Admission Date: November 25, 2023 Subjective has not been agitated with staff past 24h continues to refuse meds attempted L knee brace but he did not tolerate, prosthetics recommended closed patella knee sleeve - available in drug store but not in hospital continues to walk laps in hallway, has been friendly Physical Exam Physical Exam: PHYSICAL EXAMINATION Last 24h vital signs reviewed, see documentation in flowsheet General: physically well appearing, seen multiple times today walking laps in hallway HEENT: Normocephalic, atraumatic, pupils round and equal, sclerae anicteric, no conjunctival injection, moist mucus membranes Lungs: Normal respiratory effort. Heart: deferred Abdomen: nondistended Extremities: Warm, dry, well-perfused. No extremity edema. Neuro: Alert and oriented x self, not to situation, face symmetric, moves 4 extremities well, walks well Psych: not agitated today PG Care Time/CCT Total # of Minutes Spent Total Time Spent with Patient: Total time spent is greater than 50% in coordination of care (as documented) at patient's floor/unit and/or counseling patient: Coding Level of Care Code 63468 SUB INP/OBS CARE 03/18MIN Diagnoses Dementia, unspecified, with behavioral disturbance F03.918 Left leg pain M79.605 Type 2 diabetes mellitus E11.9 Hypertension I10 Chronic pain G89.29 Alcohol abuse F10.10 Hypothyroidism E03.9 BPH (benign prostatic hyperplasia) N40.0 History of colon cancer Z85.038
--- NOTE | 2023-12-08 18:05 | Communication Note ---
Date of Service: December 08, 2023 I met with Lolly this evening with his daughter Barbra. His concerns continue to focus on L knee. He feels that the right leg is 2 kg heavier than the left leg and that something is missing, and that they should be made equal. He does have left knee pain with ambulation. As outpatient he had been planned to have synvisc injection, but was not done yet. He does not have numbness or tingling or pain of back or buttock/posterior thigh. No foot or lower leg pain. Examined today and continues to be normal except some mild bony enlargement. There is minimal L ankle edema related to the REGINA wrap he wears around his L knee/mid leg. He is agreeable to trying lidocaine patch now. He may be willing to take meds right now with his daughter present. Ordered his synthroid, celebrex, and olanzapine for now, as well as the lidoderm and spoke with his RN for update. Will discuss possibility of steroid injection with ortho tomorrow, would need to be coordinated with his daughter's visit. she is available if notified, somewhat easier for her in the afternoon.
[2023-12-08] MEDS: LEVOTHYROXINE SODIUM 50 MCG TABLET PO SCH (18:10)
[2023-12-08] MEDS: OLANZapine ZYDIS 5 MG ORALLY DIS. TAB PO SCH (18:10)
[2023-12-08] MEDS: CELECOXIB 100 MG CAP PO SCH (18:10)
[2023-12-08] MEDS: LIDOCAINE 5% 1 PATCH TD PRN (18:10)
[2023-12-08] MEDS ORDERED: OLANZapine ZYDIS 5 MG ORALLY DIS. TAB PO SCH (21:00)
[2023-12-08] MEDS ORDERED: CELECOXIB 100 MG CAP PO SCH (21:00)
[2023-12-09] MEDS: TRIAMCINOLONE ACET 40 MG/ML VIAL IA ONE (15:41)
[2023-12-09] MEDS: BUPIVACAINE 0.25% 2.5MG/ML PF 10 ML VIAL INFIL ONE (15:41)
[2023-12-09] MEDS: ETHYL CHLORIDE AER PER SPRAY 100 ML CAN EXT ONE (15:41)
--- NOTE | 2023-12-09 16:50 | Hospitalist Progress Note ---
Date of Service December 09, 2023 Assessment & Plan (1) Dementia, unspecified, with behavioral disturbance: Plan: Presented to the ED on 11/25/23 with worsening symptoms of agitation in the setting of his dementia, refusal of meds at home Earlier in the stay he was agreeable to meds, but has been refusing for several days now Olanzapine has not been given since 12/01 according to chart review, excepting one oral dose evening of 12/05. -provider visits seem to agitate him since he perseverates on his L knee -has refused labs and EKGs -still refusing meds but did take them yesterday evening when his daughter was here - got dose of levothyroxine, celebrex, olanzapine 5 mg -continue with olanzapine 2.5 in AM and 5 mg in PM. consider seroquel, abilify or clonidine patch (see psychiatry note 12/06) His B12 level was 277 and he was given 1000 mcg IM x 3 doses last week TSH was 4.9 B1 level was ordered but refused lab draw (2) Left leg pain: Plan: Left knee x-rays done early in admission with OA changes only Longstanding bilateral knee OA, TKA was recommended for L knee in past which he refused -tried knee brace that we have available in hospital but he could not tolerate -offer celebrex, acetaminophen for arthritis pain, lidoderm -consulted ortho - discussed with Dr. Palacio and ortho PA - they have seen him, per his daughter he refused injection but ortho thought he may have Guillen's cyst causing symptoms (3) Type 2 diabetes mellitus: Plan: HbA1c 6.7% stopped BG checks since all recorded <180 and he frequently refuses cont DM diet (4) Hypertension: Plan: typically on REGINA inhibitor but has been refusing despite such most BPs are reasonable at this time (5) Chronic pain: Plan: left knee was taking celebrex at home pre-admission for OA but, again, refusing most oral meds (6) Alcohol abuse: Plan: History of alcohol abuse (Vodka) no etoh withdrawal noted at any time while here Ideally he is on thiamine supplementation but currently refusing meds. B1 level ordered but refused lab draw (7) Hypothyroidism: Plan: last TSH mildly high daughter states he was refusing to take his synthroid & other PO meds at home (8) BPH (benign prostatic hyperplasia): Plan: refuses meds for such (9) History of colon cancer: Plan: noted Plan DVT prophylaxis: refusing all medications, ambulating very frequently so risk is low Dispo: memory care unit when bed available updated the pt's daughter Barbra in room 12/07, 12/08 Admission and Anticipated Discharge Date Admission Date: November 25, 2023 Subjective continues complaint of L knee pain today behind the knee when seen by ortho currently occupied working with a family member on setting up his computer so that he can watch movies refused meds this AM but we are trying now since his family is here Physical Exam Physical Exam: PHYSICAL EXAMINATION Last 24h vital signs reviewed, see documentation in flowsheet General: sitting in chair working on computer HEENT: MMM Lungs: Normal respiratory effort. Heart: deferred Abdomen: deferred Extremities: Warm, dry, well-perfused. No extremity edema. Neuro: Alert and oriented x self, not to situation, face symmetric, moves 4 extremities well, walks well - seen waking in hallways this am Psych: not agitated, focused on task PG Care Time/CCT Total # of Minutes Spent Total Time Spent with Patient: Total time spent is greater than 50% in coordination of care (as documented) at patient's floor/unit and/or counseling patient: Coding Level of Care Code 50748 SUB INP/OBS CARE 2/35MIN Diagnoses Dementia, unspecified, with behavioral disturbance F03.918 Left leg pain M79.605 Type 2 diabetes mellitus E11.9 Hypertension I10 Chronic pain G89.29 Alcohol abuse F10.10 Hypothyroidism E03.9 BPH (benign prostatic hyperplasia) N40.0 History of colon cancer Z85.038
--- NOTE | 2023-12-09 17:25 | Orthopedic Consultation ---
Date of Service December 09, 2023 Assessment & Plan (1) Arthritis of knee, left: 83-year-old male with very vague knee complaints of fullness in the posterior aspect. Does have a history of osteoarthritis. His daughter is most concerned about his perseveration over the left knee in the posterior aspect. She wonders if an ultrasound could be done to evaluate for a cyst. I did explain that Guillen's cyst are extremely common, particularly with osteoarthritis. More than likely there will be some evidence of cyst. The question is whether to do something about it. My recommendation is to leave it alone. He can comfortably walk. The Guillen's cyst in itself is not harmful. I would not recommend a corticosteroid injection in the inpatient setting. It is not necessary to aspirate the ganglion cyst as there is a fairly high recurrence rate of 50% or more. In my opinion, intervention for his problem may be more harmful than helpful. He may resume outpatient orthopedic care with his established providers. History of Present Illness Reason for Consultation: Right knee pain, left knee posterior fullness Requesting Physician: . Attending Physician: Sherin Schofield MD 83-year-old male with dementia and Pakistani as a second language was admitted for psychiatric decompensation. While inpatient, he complained of knee pain and some fullness of the left knee. He felt it seemed larger than the other side. Orthopedics was consulted for potential continued management of chronic knee arthritis. This patient has a history at [facility] orthopedics where care was discontinued in 2021. He had apparently resume care elsewhere since then. He had been treated for knee osteoarthritis with periodic injections of steroid and viscosupplementation. No previous surgical history. Patient was seen walking the hallways appeared fairly comfortable. He came into his room to explain his left knee felt full. He demonstrated the area of fullness as the posterior aspect of his knee. Cannot describe any trauma. Cannot describe any particular pain. His daughter became available later after assessment. I was able to speak with her. She said that he obviously has some dementia that interferes with his reporting. She states that he has been favoring that knee at times. He says the fullness is really bothersome. It does not seem to affect his walking. Sometimes, she says the knee will give way on him. She is wondering if there is a cyst or something that he is complaining of back there Allergies Allergy/AdvReac Type Severity Reaction Status Date / Time procaine Allergy Severe convulsions Verified 11/25/23 20:16 Home Medications Medication Instructions Recorded Confirmed Type finasteride 5 mg tablet 5 mg PO DAILY #90 tabs 01/02/20 11/25/23 Rx lisinopril 10 mg tablet 10 mg PO DAILY #90 tabs 01/02/20 11/25/23 Rx omeprazole 40 mg capsule,delayed 40 mg PO DAILY #90 caps 01/02/20 11/25/23 Rx release duloxetine 30 mg capsule,delayed 30 mg PO DAILY 03/11/23 11/25/23 History release metformin 500 mg tablet 500 mg PO DAILY 03/11/23 11/25/23 History donepezil 5 mg disintegrating 5 mg PO . 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, persistent, hyperactive Type 2 diabetes mellitus Arthritis of knee, left (Acute) Agitation (Acute) Dementia (Acute) Chronic pain Myofascial pain Bilateral primary osteoarthritis of knee Chronic pruritus Tinea pedis Infection of right foot (Acute) Cellulitis (Acute) GERD (gastroesophageal reflux disease) Hypertension Dyslipidemia Pulmonary hypertension Non-healing ulcer of right foot (Acute) Surgical History History of colon resection History of colonoscopy with polypectomy Family History Other Hypertension Social History Smoking Status: Former smoker Hx Alcohol Use: Yes Alcohol type: hard liquor Hx Substance Use: No Preferred Language: Bolivian Communication Ability: Impaired Communication Ability Comment: daughter translates, refuses translation services Communication Tools: IPad Wind Turbine Controls Engineer Required: Yes Beliefs That Will Affect Care: None Current Living Situation: Alone Current Living Situation Comment: Needs shelter placement Feels Safe at Home: Yes Assistive Devices: Special Shoe Review of Systems All systems reviewed & are unremarkable except as noted in HPI & below. Physical Exam General: He was mostly cooperative but at times dismissive. He did answer some questions. There are some barriers with understanding. He refused salvage engineering technician services Bilateral knees: He ambulates fairly comfortably with an equal stance and swing phase on both feet. There is no evidence of antalgia. He is able to stand on both legs and flex and extend his knee. There is a slight flexion contracture of both knees of about 3-5 degrees. There is no evidence of effusion. Most of the exam was conducted standing up. He pushed my hand into the popliteal fossa of his left knee. I could not palpate any masses or fluctuance to the area and did not seem overtly tender. Constitutional WD/WN, vitals as above no acute distress and not intoxicated appearing Respiratory normal respiratory effort; no labored breathing Cardiovascular Extremities: normal capillary refill Results & Data Results & Data Laboratory Results . Diagnostic Findings Radiographs of the left knee were obtained at this hospitalization. I agree with the radiologist. My interpretation is there is very mild to moderate osteoarthritic changes with subchondral sclerosis and very mild osteophytosis. These are not significantly changed from previous weightbearing x-rays in 2021. PG Care Time/CCT Total # of Minutes Spent Total Time Spent with Patient: Total time spent is greater than 50% in coordination of care (as documented) at patient's floor/unit and/or counseling patient: Coding Level of Care Code 77970 IN/OBS CONSULT LVL 3,45M Diagnoses Arthritis of knee, left M17.12
--- NOTE | 2023-12-10 17:39 | Hospitalist Progress Note ---
Date of Service December 10, 2023 Assessment & Plan (1) Dementia, unspecified, with behavioral disturbance: Plan: Presented to the ED on 11/25/23 with worsening symptoms of agitation in the setting of his dementia, refusal of meds at home Earlier in the stay he was agreeable to meds, but has been refusing most meds this week except when his family is here -provider visits seem to agitate him more, as does the ipad head kiln operator. does better with staff and when family present -has refused labs and EKGs -got dose of levothyroxine, celebrex, olanzapine 5 mg in afternoons of 12/07, 12/08 when his daughter was here. refused meds today -continue with olanzapine 2.5 in AM and 5 mg in PM. consider seroquel, abilify or clonidine patch (see psychiatry note 12/06) -olanzapine 2.5-5 mg IM for behavioral emergency, do not exceed 10 mg in 24h His B12 level was 277 and he was given 1000 mcg IM x 3 doses last week TSH was 4.9 B1 level was ordered but refused lab draw (2) Left leg pain: Plan: Left knee x-rays done early in admission with OA changes only Longstanding bilateral knee OA, TKA was recommended for L knee in past which he refused. Has had steroid injections and synvisc injections for L knee in past. -tried knee brace that we have available in hospital but he could not tolerate -offer celebrex, acetaminophen for arthritis pain, lidoderm -consulted ortho - has longstanding OA L knee and may have Guillen's cyst, however steroid injection or aspiration not recommended by ortho. I do not think ultrasound will be useful because it does not affect management -ambulates well (3) Type 2 diabetes mellitus: Plan: HbA1c 6.7% stopped BG checks since all recorded <180 and he frequently refuses cont DM diet (4) Hypertension: Plan: typically on REGINA inhibitor but has been refusing despite such most BPs are reasonable at this time (5) Hypothyroidism: Plan: last TSH mildly high daughter states he was refusing to take his synthroid & other PO meds at home Plan History of colon cancer BPH - refusing meds Histroy of alcohol abuse, no evidence of withdrawal. Ideally he is on thiamine supplementation but currently refusing meds. B1 level ordered but refused lab draw DVT prophylaxis: refusing all medications, ambulating very frequently so risk is low Dispo: memory care unit when bed available updated the pt's daughter Barbra in room 12/07, 12/08 Admission and Anticipated Discharge Date Admission Date: November 25, 2023 Subjective has been walking in HW - 6 laps after meals today perseverating superintendent stations light on wall - pulled code cord x2 overnight, now covered with paper so he doesn't notice the light has been pleasant and cooperative today in his own room more since he has [email or web address] to watch refused meds today Physical Exam Physical Exam: PHYSICAL EXAMINATION Last 24h vital signs reviewed, see documentation in flowsheet General: in room, finishing dinner and watching TV HEENT: MMM Lungs: Normal respiratory effort. Heart: deferred Abdomen: deferred Extremities: Warm, dry, well-perfused. No extremity edema. Neuro: Alert and oriented x self, not to situation, face symmetric, moves 4 extremities well, walks well - often seen walking on 3E Psych: not agitated, more redirectable PG Care Time/CCT Total # of Minutes Spent Total Time Spent with Patient: Total time spent is greater than 50% in coordination of care (as documented) at patient's floor/unit and/or counseling patient: Coding Level of Care Code 76827 SUB INP/OBS CARE 03/18MIN Diagnoses Dementia, unspecified, with behavioral disturbance F03.918 Left leg pain M79.605 Type 2 diabetes mellitus E11.9 Hypertension I10 Hypothyroidism E03.9
--- NOTE | 2023-12-11 09:39 | Hospitalist Progress Note ---
Date of Service December 11, 2023 Assessment & Plan (1) Dementia, unspecified, with behavioral disturbance: Plan: Presented to the ED on 11/25/23 with worsening symptoms of agitation in the setting of his dementia, refusal of meds at home Earlier in the stay he was agreeable to meds, but has been refusing most meds this week except when his family is here -provider visits seem to agitate him more, as does the ipad analysis tester. does better with staff and when family present -has refused labs and EKGs -got dose of levothyroxine, celebrex, olanzapine 5 mg in afternoons of 12/07, 12/08 when his daughter was here. refused meds today -continue with olanzapine 2.5 in AM and 5 mg in PM. consider seroquel, abilify or clonidine patch (see psychiatry note 12/06) -olanzapine 2.5-5 mg IM for behavioral emergency, do not exceed 10 mg in 24h His B12 level was 277 and he was given 1000 mcg IM x 3 doses last week TSH was 4.9 B1 level was ordered but refused lab draw Knife Finisher service used. Spoke with Kimberley who admittedly stated that she had trouble communicating with the patient as he continues to repeat things over and over. Patient became more more agitated. After approximately 10 minutes with the iPad using picking tech service, I terminated the conversation. (2) Left leg pain: Plan: Left knee x-rays done early in admission with OA changes only and some trace effusion. Longstanding bilateral knee OA, TKA was recommended for L knee in past which he refused. Has had steroid injections and synvisc injections for L knee in past. -tried knee brace that we have available in hospital but he could not tolerate -offer celebrex, acetaminophen for arthritis pain, lidoderm -consulted ortho - has longstanding OA L knee and may have Guillen's cyst, however steroid injection or aspiration not recommended by ortho. Offered follow-up x-ray today to evaluate if effusion had worsened. Also offered ultrasound Doppler of the left leg to look for Guillen's cyst in the popliteal region. Patient refused. Advised patient via picking tech that at 83 years old and with osteoarthritis that he most likely will have some discomfort of the left leg. Patient refuses Tylenol or other analgesia. Would avoid NSAIDs and opiates for pain. Patient ambulating well in hallway. (3) Type 2 diabetes mellitus: Plan: HbA1c 6.7% stopped BG checks since all recorded <180 and he frequently refuses cont DM diet (4) Hypertension: Plan: typically on REGINA inhibitor but has been refusing despite such most BPs are reasonable at this time -currently 132/77 with a heart rate of 75 bpm (5) Hypothyroidism: Plan: last TSH mildly high daughter states he was refusing to take his synthroid & other PO meds at home Plan History of colon cancer BPH - refusing meds Histroy of alcohol abuse, no evidence of withdrawal. Ideally he is on thiamine supplementation but currently refusing meds. B1 level ordered but refused lab draw DVT prophylaxis: refusing all medications, ambulating very frequently so risk is low Dispo: memory care unit when bed available updated the pt's daughter Barbra in room 12/07, 12/08. Attempted to call daughter 12/11/2023. No answer. Admission and Anticipated Discharge Date Admission Date: November 25, 2023 Subjective Attending: Dr. Schofield Patient seen and examined at bedside. No acute complaints. Patient does complain of discomfort of the left leg which is chronic. Previous x-ray of the left leg shows osteoarthritis as well as some trace effusion. No evidence of effusion on examination today. Patient is seen walking without discomfort multiple laps in the hallway. Patient denies fever, chills, sweats, rigors. No nausea or vomiting. No diarrhea. Review of Systems 2 Review of Systems: A total of 10 systems was reviewed and is negative other than as listed in the HPI Physical Exam 2 Physical Exam: GENERAL : No acute distress EYES: No icterus, gaze conjugate NOSE: No evidence of epistaxis MOUTH: No lesions or candidiasis NECK: Supple LUNGS: CTA B/L, no wheezes, rales or rhonchi HEART: Regular, rate controlled ABDOMEN: Soft, NT, ND, BS Present EXTREMITIES: No LE edema, pedal pulses intact. Patient complains of left knee pain. No pain to palpation. No appreciation of Guillen's cyst. No edema of the left leg. Patient does have evidence of chronic venous changes to bilateral legs which appear equal. NEURO: A&OX3. Patient became very agitated when using translation service. Results & Data Results & Data Laboratory Results 12/02/23 07:30 12/02/23 07:30 Diagnostic Findings Chest X-Ray 11/25/23 15:32 XR chest 1V portable CLINICAL HISTORY: weakness COMPARISON STUDY: Chest radiograph September 17, 2023. FINDINGS: There is no pneumothorax or pleural effusion. Cardiomegaly is unchanged. There is no evidence for pulmonary edema. No consolidation is identified to suggest pneumonia. IMPRESSION: No acute cardiopulmonary findings. Stable cardiomegaly. ACT 112: Negative or not required by law. Electronically signed by: Kristofer Reyes M.D. 11/25/2023 5:[address] 11/25/23 15:32 CT OF THE HEAD WITHOUT CONTRAST CLINICAL HISTORY: Altered mental status. COMPARISON STUDY: MRI of the brain May 24, 2020. CT DOSE: 703.85 mGy.cm TECHNIQUE: Helical axial images of the head were obtained without IV contrast. Automated exposure control was utilized for the study. A dose lowering technique was utilized adhering to the principles of ALARA. FINDINGS: No acute intracranial hemorrhage, midline shift or mass effect is present. The ventricular system is unremarkable. The basal cisterns are patent. No extra-axial collections are present. There are no findings to suggest acute dural sinus thrombosis or acute territorial infarct. An 8 mm hypodensity within the right basal ganglia is unchanged. There are no calvarial fractures. There is mild ethmoid sinus mucosal thickening. IMPRESSION: No acute intracranial findings. ACT 112: Negative or not required by law. Electronically signed by: Kristofer Reyes M.D. 11/25/2023 6:04 PM Knee X-Ray 11/25/23 15:32 XR knee LT 1 or 2V routine CLINICAL HISTORY: Left knee pain. COMPARISON: Left knee radiographs March 07, 2021. FINDINGS: Alignment of the left knee is anatomic. There are no fractures. There are no osseous lesions. There is a trace joint effusion. Mild to moderate lateral patellofemoral compartment osteoarthritis is present. IMPRESSION: 1. No fractures within the left knee. Trace left knee joint effusion. 2. Mild to moderate lateral and patellofemoral compartment osteoarthritis. ACT 112: Negative or not required by law. Electronically signed by: Kristofer Reyes M.D. 11/25/2023 5:58 PM PG Care Time/CCT Total # of Minutes Spent Total Time Spent with Patient: Total time spent is greater than 50% in coordination of care (as documented) at patient's floor/unit and/or counseling patient: 30 minutes including 10 minutes with picking tech service with iPad Coding Level of Care Code 46791 SUB INP/OBS CARE 03/18MIN Diagnoses Dementia, unspecified, with behavioral disturbance F03.918 Left leg pain M79.605 Type 2 diabetes mellitus E11.9 Hypertension I10 Hypothyroidism E03.9 Time Spent (min) 30
--- NOTE | 2023-12-12 14:07 | Hospitalist Progress Note ---
Date of Service December 12, 2023 Assessment & Plan (1) Dementia, unspecified, with behavioral disturbance: Plan: Presented to the ED on 11/25/23 with worsening symptoms of agitation in the setting of his dementia, refusal of meds at home Earlier in the stay he was agreeable to meds, but has been refusing most meds this week except when his family is here -provider visits seem to agitate him more, as does the ipad department operations manager. does better with staff and when family present -has refused labs and EKGs -got dose of levothyroxine, celebrex, olanzapine 5 mg in afternoons of 12/07, 12/08 when his daughter was here. refused meds today -continue with olanzapine 2.5 in AM and 5 mg in PM. consider seroquel, abilify or clonidine patch (see psychiatry note 12/06) -olanzapine 2.5-5 mg IM for behavioral emergency, do not exceed 10 mg in 24h His B12 level was 277 and he was given 1000 mcg IM x 3 doses last week TSH was 4.9 B1 level was ordered but refused lab draw Patient more cooperative today. No issues. (2) Left leg pain: Plan: Left knee x-rays done early in admission with OA changes only and some trace effusion. Longstanding bilateral knee OA, TKA was recommended for L knee in past which he refused. Has had steroid injections and synvisc injections for L knee in past. -tried knee brace that we have available in hospital but he could not tolerate -offer celebrex, acetaminophen for arthritis pain, lidoderm -consulted ortho - has longstanding OA L knee and may have Guillen's cyst, however steroid injection or aspiration not recommended by ortho. Offered follow-up x-ray today to evaluate if effusion had worsened. Also offered ultrasound Doppler of the left leg to look for Guillen's cyst in the popliteal region. Patient refused. Advised patient via health benefits specialist on 12/11/2023 that at 83 years old and with osteoarthritis that he most likely will have some discomfort of the left leg. Patient refuses Tylenol or other analgesia. Would avoid NSAIDs and opiates for pain. Patient ambulating well in hallway. (3) Type 2 diabetes mellitus: Plan: HbA1c 6.7% stopped BG checks since all recorded <180 and he frequently refuses cont DM diet (4) Hypertension: Plan: typically on REGINA inhibitor but has been refusing despite such most BPs are reasonable at this time -currently 132/77 with a heart rate of 75 bpm (5) Hypothyroidism: Plan: last TSH mildly high daughter states he was refusing to take his synthroid & other PO meds at home Plan History of colon cancer BPH - refusing meds Histroy of alcohol abuse, no evidence of withdrawal. Ideally he is on thiamine supplementation but currently refusing meds. B1 level ordered but refused lab draw DVT prophylaxis: refusing all medications, ambulating very frequently so risk is low Dispo: memory care unit when bed available updated the pt's daughter Barbra in room 12/07, 12/08. Attempted to call daughter 12/11/2023. No answer. Nursing advised to let us know if daughter or other family members visit today. Admission and Anticipated Discharge Date Admission Date: November 25, 2023 Subjective Attending: Dr. Schofield Patient seen and examined at bedside today. He seems to be more tolerant of left leg. No acute complaints. Comfortably playing chess on his computer. Patient denies fever, chills, sweats, rigors. No nausea or vomiting. No diarrhea. Review of Systems Review of Systems: A total of 10 systems was reviewed and is negative other than as listed in the HPI Physical Exam Physical Exam: GENERAL : No acute distress EYES: No icterus, gaze conjugate NOSE: No evidence of epistaxis MOUTH: No lesions or candidiasis NECK: Supple LUNGS: CTA B/L, no wheezes, rales or rhonchi HEART: Regular, rate controlled ABDOMEN: Soft, NT, ND, BS Present EXTREMITIES: No LE edema, pedal pulses intact. NEURO: A&OX3. Results & Data Results & Data Laboratory Results Please refer to most recent labs from 12/02/2023 PG Care Time/CCT Total # of Minutes Spent Total Time Spent with Patient: Total time spent is greater than 50% in coordination of care (as documented) at patient's floor/unit and/or counseling patient: Coding Level of Care Code 76717 SUB INP/OBS CARE 03/18MIN Diagnoses Dementia, unspecified, with behavioral disturbance F03.918 Left leg pain M79.605 Type 2 diabetes mellitus E11.9 Hypertension I10 Hypothyroidism E03.9 Time Spent (min) 15
--- NOTE | 2023-12-13 11:08 | Hospitalist Progress Note ---
Date of Service December 13, 2023 Assessment & Plan (1) Dementia, unspecified, with behavioral disturbance: Plan: Presented to the ED on 11/25/23 with worsening symptoms of agitation in the setting of his dementia, refusal of meds at home Earlier in the stay he was agreeable to meds, but has been refusing most meds this week except when his family is here (took synthroid, celebrex and olanzapine 12/07&12/08) -provider visits seem to agitate him more, as does the ipad conference interpreter. does better with staff and when family present -has refused labs and EKGs -continue with olanzapine 2.5 in AM and 5 mg in PM. consider seroquel, abilify or clonidine patch (see psychiatry note 12/06) -olanzapine 2.5-5 mg IM for behavioral emergency, do not exceed 10 mg in 24h His B12 level was 277 and he was given 1000 mcg IM x 3 doses last week TSH was 4.9 B1 level was ordered but refused lab draw (2) Left leg pain: Plan: Left knee x-rays done early in admission with OA changes only Longstanding bilateral knee OA, TKA was recommended for L knee in past which he refused. Has had steroid injections and synvisc injections for L knee in past. -tried knee brace that we have available in hospital but he could not tolerate -offer celebrex, acetaminophen for arthritis pain, lidoderm -consulted ortho - has longstanding OA L knee and may have Guillen's cyst, however steroid injection or aspiration not recommended by ortho. -ambulates well (3) Type 2 diabetes mellitus: Plan: HbA1c 6.7% stopped BG checks since all recorded <180 and he frequently refuses cont DM diet (4) Hypertension: Plan: typically on REGINA inhibitor but has been refusing despite such most BPs are reasonable at this time (5) Hypothyroidism: Plan: last TSH mildly high daughter states he was refusing to take his synthroid & other PO meds at home Plan History of colon cancer BPH - refusing meds Histroy of alcohol abuse, no evidence of withdrawal. Ideally he is on thiamine supplementation but currently refusing meds. B1 level ordered but refused lab draw DVT prophylaxis: refusing all medications, ambulating very frequently so risk is low Dispo: memory care unit when bed available updated the pt's daughter Barbra in room 12/07, 12/08 Admission and Anticipated Discharge Date Admission Date: November 25, 2023 Subjective Patient seen ambulating around the room, requests more orange juice which i obtained for him no acute complaints, states he is going to listen to music Review of Systems Review of Systems: All systems reviewed & are unremarkable except as noted in Subjective Physical Exam Physical Exam: General: NAD, vitals as above, ambulating around the room Pulm: breathing unlabored CV: well perfused extremities: moves all extremities Able to make needs known, pleasant Results & Data Results & Data Vital Signs (Past 12 Hours) Vital Signs O2 Del Method 12/13/23 09:00 Room Air PG Care Time/CCT Total # of Minutes Spent Total Time Spent with Patient: Total time spent is greater than 50% in coordination of care (as documented) at patient's floor/unit and/or counseling patient: Coding Level of Care Code 71635 SUB INP/OBS CARE 03/18MIN Diagnoses Dementia, unspecified, with behavioral disturbance F03.918 Left leg pain M79.605 Type 2 diabetes mellitus E11.9 Hypertension I10 Hypothyroidism E03.9
--- NOTE | 2023-12-14 16:02 | Hospitalist Progress Note ---
Date of Service December 14, 2023 Assessment & Plan (1) Dementia, unspecified, with behavioral disturbance: Plan: Presented to the ED on 11/25/23 with worsening symptoms of agitation in the setting of his dementia, refusal of meds at home Earlier in the stay he was agreeable to meds, but has been refusing most meds this week except when his family is here (took synthroid, celebrex and olanzapine 12/07&12/08) -provider visits seem to agitate him more, as does the ipad deli cook. does better with staff and when family present -has refused labs and EKGs -continue with olanzapine 2.5 in AM and 5 mg in PM. consider seroquel, abilify or clonidine patch (see psychiatry note 12/06) -olanzapine 2.5-5 mg IM for behavioral emergency, do not exceed 10 mg in 24h His B12 level was 277 and he was given 1000 mcg IM x 3 doses last week TSH was 4.9 B1 level was ordered but refused lab draw (2) Left leg pain: Plan: Left knee x-rays done early in admission with OA changes only Longstanding bilateral knee OA, TKA was recommended for L knee in past which he refused. Has had steroid injections and synvisc injections for L knee in past. -tried knee brace that we have available in hospital but he could not tolerate -offer celebrex, acetaminophen for arthritis pain, lidoderm -consulted ortho - has longstanding OA L knee and may have Guillen's cyst, however steroid injection or aspiration not recommended by ortho. -ambulates well (3) Type 2 diabetes mellitus: Plan: HbA1c 6.7% stopped BG checks since all recorded <180 and he frequently refuses cont DM diet (4) Hypertension: Plan: typically on REGINA inhibitor but has been refusing despite such most BPs are reasonable at this time (5) Hypothyroidism: Plan: last TSH mildly high daughter states he was refusing to take his synthroid & other PO meds at home Plan History of colon cancer BPH - refusing meds Histroy of alcohol abuse, no evidence of withdrawal. Ideally he is on thiamine supplementation but currently refusing meds. B1 level ordered but refused lab draw DVT prophylaxis: refusing all medications, ambulating very frequently so risk is low Dispo: memory care unit when bed available updated the pt's daughter Barbra in room 12/07, 12/08 Admission and Anticipated Discharge Date Admission Date: November 25, 2023 Subjective Patient seen ambulating around the unit and in his room. Enjoying his music no acute concerns Review of Systems Review of Systems: All systems reviewed & are unremarkable except as noted in Subjective Physical Exam Physical Exam: General, ambulating around the room Pulm: breathing unlabored CV: well perfused extremities: moves all extremities Able to make needs known, pleasant PG Care Time/CCT Total # of Minutes Spent Total Time Spent with Patient: Total time spent is greater than 50% in coordination of care (as documented) at patient's floor/unit and/or counseling patient: Coding Level of Care Code 01856 SUB INP/OBS CARE 03/18MIN Diagnoses Dementia, unspecified, with behavioral disturbance F03.918 Left leg pain M79.605 Type 2 diabetes mellitus E11.9 Hypertension I10 Hypothyroidism E03.9
--- NOTE | 2023-12-15 12:48 | Hospitalist Progress Note ---
Date of Service December 15, 2023 Assessment & Plan (1) Dementia, unspecified, with behavioral disturbance: Plan: Presented to the ED on 11/25/23 with worsening symptoms of agitation in the setting of his dementia, refusal of meds at home Earlier in the stay he was agreeable to meds, but has been refusing most meds except when his family is here (took synthroid, celebrex and olanzapine 12/07&12/08) -provider visits seem to agitate him more, as does the ipad binder fixer. does better with staff and when family present -has refused labs and EKGs -If willing to take would continue with olanzapine 2.5 in AM and 5 mg in PM. consider seroquel, abilify or clonidine patch (see psychiatry note 12/06) B12 level:277, given 1000 mcg IM x 3 doses TSH was 4.9 B1 level was ordered but refused lab draw (2) Left leg pain: Plan: Left knee x-rays done early in admission with OA changes only Longstanding bilateral knee OA, TKA was recommended for L knee in past which he refused. Has had steroid injections and synvisc injections for L knee in past. -tried knee brace that we have available in hospital but he could not tolerate -offer celebrex, acetaminophen for arthritis pain, lidoderm -consulted ortho - has longstanding OA L knee and may have Guillen's cyst, however steroid injection or aspiration not recommended by ortho. -ambulates well (3) Type 2 diabetes mellitus: Plan: HbA1c 6.7% stopped BG checks since all recorded <180 and he frequently refuses cont DM diet (4) Hypertension: Plan: typically on REGINA inhibitor but has been refusing despite such most BPs are reasonable at this time (5) Hypothyroidism: Plan: last TSH mildly high daughter states he was refusing to take his synthroid & other PO meds at home Plan History of colon cancer BPH - refusing meds Histroy of alcohol abuse, no evidence of withdrawal. Ideally he is on thiamine supplementation but currently refusing meds. B1 level ordered but refused lab draw DVT prophylaxis: refusing all medications, ambulating very frequently so risk is low Dispo: memory care unit when bed available updated the pt's daughter Barbra in room 12/07, 12/08 Admission and Anticipated Discharge Date Admission Date: November 25, 2023 Subjective patient seen ambulating in the hallways, did not want to stop to talk to me or allow me to do an exam states that he needed to walk. No acute concerns, ambulating without issue Review of Systems Review of Systems: All systems reviewed & are unremarkable except as noted in Subjective Physical Exam Physical Exam: General, ambulating around the unit Pulm: breathing unlabored CV: well perfused extremities: moves all extremities Able to make needs known, pleasant PG Care Time/CCT Total # of Minutes Spent Total Time Spent with Patient: Total time spent is greater than 50% in coordination of care (as documented) at patient's floor/unit and/or counseling patient: Coding Level of Care Code 05324 SUB INP/OBS CARE 03/18MIN Diagnoses Dementia, unspecified, with behavioral disturbance F03.918 Left leg pain M79.605 Type 2 diabetes mellitus E11.9 Hypertension I10 Hypothyroidism E03.9
--- NOTE | 2023-12-16 12:27 | Hospitalist Progress Note ---
Date of Service December 16, 2023 Assessment & Plan (1) Dementia, unspecified, with behavioral disturbance: Plan: Presented to the ED on 11/25/23 with worsening symptoms of agitation in the setting of his dementia, refusal of meds at home Earlier in the stay he was agreeable to meds, but has been refusing most meds except when his family is here (took synthroid, celebrex and olanzapine 12/07&12/08) -provider visits seem to agitate him more, as does the ipad mortgage servicing specialist. does better with staff and when family present -has refused labs and EKGs -If willing to take would continue with olanzapine 2.5 in AM and 5 mg in PM. consider seroquel, abilify or clonidine patch (see psychiatry note 12/06) B12 level:277, given 1000 mcg IM x 3 doses TSH was 4.9 B1 level was ordered but refused lab draw (2) Left leg pain: Plan: Left knee x-rays done early in admission with OA changes only Longstanding bilateral knee OA, TKA was recommended for L knee in past which he refused. Has had steroid injections and synvisc injections for L knee in past. -tried knee brace that we have available in hospital but he could not tolerate -offer celebrex, acetaminophen for arthritis pain, lidoderm -consulted ortho - has longstanding OA L knee and may have Guillen's cyst, however steroid injection or aspiration not recommended by ortho. -ambulates well (3) Type 2 diabetes mellitus: Plan: HbA1c 6.7% stopped BG checks since all recorded <180 and he frequently refuses cont DM diet (4) Hypertension: Plan: typically on REGINA inhibitor but has been refusing despite such most BPs are reasonable at this time (5) Hypothyroidism: Plan: last TSH mildly high daughter states he was refusing to take his synthroid & other PO meds at home Plan History of colon cancer BPH - refusing meds Histroy of alcohol abuse, no evidence of withdrawal. Ideally he is on thiamine supplementation but currently refusing meds. B1 level ordered but refused lab draw DVT prophylaxis: refusing all medications, ambulating very frequently so risk is low Dispo: memory care unit when bed available updated the pt's daughter Barbra in room 12/07, 12/08 Admission and Anticipated Discharge Date Admission Date: November 25, 2023 Subjective patient seen ambulating in the halls earlier this morning. Later I visited the patient's room while patient was resting in bed. He states he did not need anything and asked me to leave. Did allow for assessment Review of Systems Review of Systems: All systems reviewed & are unremarkable except as noted in Subjective Physical Exam Physical Exam: General, ambulating around the unit Pulm: breathing unlabored CV: well perfused extremities: moves all extremities Able to make needs known, pleasant PG Care Time/CCT Total # of Minutes Spent Total Time Spent with Patient: Total time spent is greater than 50% in coordination of care (as documented) at patient's floor/unit and/or counseling patient: Coding Level of Care Code 76112 SUB INP/OBS CARE 03/18MIN Diagnoses Dementia, unspecified, with behavioral disturbance F03.918 Left leg pain M79.605 Type 2 diabetes mellitus E11.9 Hypertension I10 Hypothyroidism E03.9
--- NOTE | 2023-12-17 11:32 | Hospitalist Progress Note ---
Date of Service December 17, 2023 Assessment & Plan (1) Dementia, unspecified, with behavioral disturbance: Plan: Presented to the ED on 11/25/23 with worsening symptoms of agitation in the setting of his dementia, refusal of meds at home Earlier in the stay he was agreeable to meds, but has been refusing most meds except when his family is here (took synthroid, celebrex and olanzapine 12/07&12/08) -provider visits seem to agitate him more, as does the ipad certified court/medical interpreter. does better with staff and when family present -has refused labs and EKGs -B12 level:277, given 1000 mcg IM x 3 doses - TSH was 4.9 - B1 level was ordered but refused lab draw -If willing to take would continue with olanzapine 2.5 in AM and 5 mg in PM. consider Seroquel, Abilify or clonidine patch (see psychiatry note 12/06) (2) Left leg pain: Plan: Left knee x-rays done early in admission with OA changes only Longstanding bilateral knee OA, TKA was recommended for L knee in past which he refused. Has had steroid injections and synvisc injections for L knee in past. -tried knee brace that we have available in hospital but he could not tolerate -offer celebrex, acetaminophen for arthritis pain, lidoderm -consulted ortho - has longstanding OA L knee and may have Guillen's cyst, however steroid injection or aspiration not recommended by ortho. -ambulates well (3) Type 2 diabetes mellitus: Plan: HbA1c 6.7% stopped BG checks since all recorded <180 and he frequently refuses cont DM diet (4) Hypertension: Plan: typically on REGINA inhibitor but has been refusing despite such most BPs are reasonable at this time (5) Hypothyroidism: Plan: last TSH mildly high daughter states he was refusing to take his synthroid & other PO meds at home Plan History of colon cancer BPH - refusing meds Histroy of alcohol abuse, no evidence of withdrawal. Ideally he is on thiamine supplementation but currently refusing meds. B1 level ordered but refused lab draw DVT prophylaxis: refusing all medications, ambulating very frequently so risk is low Dispo: memory care unit when bed available updated the pt's daughter Barbra in room 12/07, 12/08 Admission and Anticipated Discharge Date Admission Date: November 25, 2023 Subjective Patient lying in bed. States that he is feeling well. When i encouraged him to take his medications he said no and states "I am normal". He has been ambulating around the room and unit and denies any concerns at this time. Physical Exam Physical Exam: General: lying in bed, able to communicate and make needs known Pulm: breathing unlabored CV: well perfused extremities: moves all extremities PG Care Time/CCT Total # of Minutes Spent Total Time Spent with Patient: Total time spent is greater than 50% in coordination of care (as documented) at patient's floor/unit and/or counseling patient: Coding Level of Care Code 58248 SUB INP/OBS CARE 03/18MIN Diagnoses Dementia, unspecified, with behavioral disturbance F03.918 Left leg pain M79.605 Type 2 diabetes mellitus E11.9 Hypertension I10 Hypothyroidism E03.9
--- NOTE | 2023-12-18 10:59 | Hospitalist Progress Note ---
Date of Service December 18, 2023 Assessment & Plan (1) Dementia, unspecified, with behavioral disturbance: Plan: Presented to the ED on 11/25/23 with worsening symptoms of agitation in the setting of his dementia, refusal of meds at home Earlier in the stay he was agreeable to meds, but has been refusing most meds except when his family is here (took synthroid, celebrex and olanzapine 12/07&12/08) -provider visits seem to agitate him more, as does the ipad water technician. does better with staff and when family present -has refused labs and EKGs -B12 level:277, given 1000 mcg IM x 3 doses - TSH was 4.9 - B1 level was ordered but refused lab draw -If willing to take would continue with olanzapine 2.5 in AM and 5 mg in PM. consider Seroquel, Abilify or clonidine patch (see psychiatry note 12/06) (2) Left leg pain: Plan: Left knee x-rays done early in admission with OA changes only Longstanding bilateral knee OA, TKA was recommended for L knee in past which he refused. Has had steroid injections and synvisc injections for L knee in past. -tried knee brace that we have available in hospital but he could not tolerate -offer celebrex, acetaminophen for arthritis pain, lidoderm -consulted ortho - has longstanding OA L knee and may have Guillen's cyst, however steroid injection or aspiration not recommended by ortho. -ambulates well (3) Type 2 diabetes mellitus: Plan: HbA1c 6.7% stopped BG checks since all recorded <180 and he frequently refuses cont DM diet (4) Hypertension: Plan: typically on REGINA inhibitor but has been refusing despite such most BPs are reasonable at this time (5) Hypothyroidism: Plan: last TSH mildly high daughter states he was refusing to take his synthroid & other PO meds at home Plan History of colon cancer BPH - refusing meds Histroy of alcohol abuse, no evidence of withdrawal. Ideally he is on thiamine supplementation but currently refusing meds. B1 level ordered but refused lab draw DVT prophylaxis: refusing all medications, ambulating very frequently so risk is low Dispo: memory care unit when bed available updated the pt's daughter Barbra in room 12/07, 12/08 LM for pt daughter 12/17 Admission and Anticipated Discharge Date Admission Date: November 25, 2023 Subjective Patient seen lying in bed, per nursing he has been requesting me. Asking why he is here and cannot leave, i tried to explain multiple times that we are waiting for a safe place for him to be able to discharge and he was not understanding. I offered the tele-water technician and he declined this. I had told him there was nothing he needed to do besides relax. I again offered him to take medications today but he declined. States he is feeling well. Review of Systems Review of Systems: All systems reviewed & are unremarkable except as noted in Subjective Physical Exam Physical Exam: General: lying in bed, able to communicate and make needs known - becomes frustrated as he does not understand why he is still here Pulm: breathing unlabored CV: well perfused extremities: moves all extremities PG Care Time/CCT Total # of Minutes Spent Total Time Spent with Patient: Total time spent is greater than 50% in coordination of care (as documented) at patient's floor/unit and/or counseling patient: Coding Level of Care Code 61944 SUB INP/OBS CARE 03/18MIN Diagnoses Dementia, unspecified, with behavioral disturbance F03.918 Left leg pain M79.605 Type 2 diabetes mellitus E11.9 Hypertension I10 Hypothyroidism E03.9
--- NOTE | 2023-12-19 11:21 | Hospitalist Progress Note ---
Date of Service December 19, 2023 Assessment & Plan (1) Dementia, unspecified, with behavioral disturbance: Plan: Presented to the ED on 11/25/23 with worsening symptoms of agitation in the setting of his dementia, refusal of meds at home Earlier in the stay he was agreeable to meds, but has been refusing most meds except when his family is here (took synthroid, celebrex and olanzapine 12/07&12/08) -provider visits seem to agitate him more, as does the ipad insole presser. does better with staff and when family present -has refused labs and EKGs -B12 level:277, given 1000 mcg IM x 3 doses - TSH was 4.9 - B1 level was ordered but refused lab draw -If willing to take would continue with olanzapine 2.5 in AM and 5 mg in PM. consider Seroquel, Abilify or clonidine patch (see psychiatry note 12/06) (2) Left leg pain: Plan: Left knee x-rays done early in admission with OA changes only Longstanding bilateral knee OA, TKA was recommended for L knee in past which he refused. Has had steroid injections and synvisc injections for L knee in past. -tried knee brace that we have available in hospital but he could not tolerate -offer celebrex, acetaminophen for arthritis pain, lidoderm -consulted ortho - has longstanding OA L knee and may have Guillen's cyst, however steroid injection or aspiration not recommended by ortho. Continues to ambulate well (3) Type 2 diabetes mellitus: Plan: HbA1c 6.7% stopped BG checks since all recorded <180 and he frequently refuses cont DM diet (4) Hypertension: Plan: typically on REGINA inhibitor but has been refusing despite such most BPs are reasonable at this time (5) Hypothyroidism: Plan: last TSH mildly high daughter states he was refusing to take his synthroid & other PO meds at home Plan History of colon cancer BPH - refusing meds Histroy of alcohol abuse, no evidence of withdrawal. Ideally he is on thiamine supplementation but currently refusing meds. B1 level ordered but refused lab draw DVT prophylaxis: refusing all medications, ambulating very frequently so risk is low Dispo: memory care unit when bed available updated the pt's daughter Barbra in room 12/07, 12/08 LM for pt daughter 12/17 Admission and Anticipated Discharge Date Admission Date: November 25, 2023 Subjective Patient seen ambulating in the halls, not wanting to engage in conversation as he wants to keep walking. RN reports patient has been less agitated and more plesant today. Review of Systems Review of Systems: All systems reviewed & are unremarkable except as noted in Subjective Physical Exam Physical Exam: General: ambulating in the halls, Pulm: breathing unlabored CV: well perfused extremities: moves all extremities Results & Data Results & Data Vital Signs (Past 12 Hours) Vital Signs O2 Del Method 12/19/23 07:00 Room Air PG Care Time/CCT Total # of Minutes Spent Total Time Spent with Patient: Total time spent is greater than 50% in coordination of care (as documented) at patient's floor/unit and/or counseling patient: Coding Level of Care Code 08075 SUB INP/OBS CARE 03/18MIN Diagnoses Dementia, unspecified, with behavioral disturbance F03.918 Left leg pain M79.605 Type 2 diabetes mellitus E11.9 Hypertension I10 Hypothyroidism E03.9
--- NOTE | 2023-12-20 12:40 | Hospitalist Progress Note ---
Date of Service December 20, 2023 Assessment & Plan (1) Dementia, unspecified, with behavioral disturbance: Plan: Presented to the ED on 11/25/23 with worsening symptoms of agitation in the setting of his dementia, refusal of meds at home Earlier in the stay he was agreeable to meds, but has been refusing most meds except when his family is here (took synthroid, celebrex and olanzapine 12/07&12/08) -provider visits seem to agitate him more, as does the ipad supervisor cook room. does better with staff and when family present -has refused labs and EKGs -B12 level:277, given 1000 mcg IM x 3 doses - TSH was 4.9 - B1 level was ordered but refused lab draw -If willing to take would continue with olanzapine 2.5 in AM and 5 mg in PM. consider Seroquel, Abilify or clonidine patch (see psychiatry note 12/06) (2) Left leg pain: Plan: Left knee x-rays done early in admission with OA changes only Longstanding bilateral knee OA, TKA was recommended for L knee in past which he refused. Has had steroid injections and synvisc injections for L knee in past. -tried knee brace that we have available in hospital but he could not tolerate -offer celebrex, acetaminophen for arthritis pain, lidoderm -consulted ortho - has longstanding OA L knee and may have Guillen's cyst, however steroid injection or aspiration not recommended by ortho. Continues to ambulate well (3) Type 2 diabetes mellitus: Plan: HbA1c 6.7% stopped BG checks since all recorded <180 and he frequently refuses cont DM diet (4) Hypothyroidism: Plan: last TSH mildly high daughter states he was refusing to take his synthroid & other PO meds at home Plan Chronic conditions: History of colon cancer BPH - refusing meds Histroy of alcohol abuse, no evidence of withdrawal. Ideally he is on thiamine supplementation but currently refusing meds. B1 level ordered but refused lab draw HTN: REGINA inhibitor, refuses, BP reasonable Hypothyroidism: most recent TSH mildly high. Patient refusing Synthroid at home and inpatient. DVT prophylaxis: refusing all medications, ambulating very frequently so risk is low Dispo: memory care unit when bed available Admission and Anticipated Discharge Date Admission Date: November 25, 2023 Subjective Patient seen and examined this morning in his room. Patient reading book at time of encounter. Patient became agitated during encounter, stating he "did not understand" why he was here and wants to go home. Denied any complaints. Stated he "cannot feel anything wrong". Physical Exam Constitutional: WD/WN, vitals as above Eyes: PERRL, conjunctivae normal, anicteric sclerae Respiratory: breathing unlabored Cardiovascular: well perfused Psychiatric: oriented to self PG Care Time/CCT Total # of Minutes Spent Total Time Spent with Patient: Total time spent is greater than 50% in coordination of care (as documented) at patient's floor/unit and/or counseling patient: Coding Level of Care Code 72667 SUB INP/OBS CARE 03/18MIN Diagnoses Dementia, unspecified, with behavioral disturbance F03.918 Left leg pain M79.605 Type 2 diabetes mellitus E11.9 Hypothyroidism E03.9
--- NOTE | 2023-12-21 12:49 | Hospitalist Progress Note ---
Date of Service December 21, 2023 Assessment & Plan (1) Dementia, unspecified, with behavioral disturbance: Plan: Presented to the ED on 11/25/23 with worsening symptoms of agitation in the setting of his dementia, refusal of meds at home Earlier in the stay he was agreeable to meds, but has been refusing most meds except when his family is here (took synthroid, celebrex and olanzapine 12/07&12/08) -provider visits seem to agitate him more, as does the ipad spanish medical interpreter. does better with staff and when family present -has refused labs and EKGs -B12 level:277, given 1000 mcg IM x 3 doses - TSH was 4.9 - B1 level was ordered but refused lab draw -If willing to take would continue with olanzapine 2.5 in AM and 5 mg in PM. consider Seroquel, Abilify or clonidine patch (see psychiatry note 12/06) (2) Left leg pain: Plan: Left knee x-rays done early in admission with OA changes only Longstanding bilateral knee OA, TKA was recommended for L knee in past which he refused. Has had steroid injections and synvisc injections for L knee in past. -tried knee brace that we have available in hospital but he could not tolerate -offer Celebrex, acetaminophen for arthritis pain, lidoderm -consulted ortho - has longstanding OA L knee and may have Guillen's cyst, however steroid injection or aspiration not recommended by ortho. Continues to ambulate well (3) Type 2 diabetes mellitus: Plan: HbA1c 6.7% stopped BG checks since all recorded <180 and he frequently refuses cont DM diet (4) Hypothyroidism: Plan: last TSH mildly high daughter states he was refusing to take his synthroid & other PO meds at home Plan Chronic conditions: History of colon cancer BPH - refusing meds Histroy of alcohol abuse, no evidence of withdrawal. Ideally he is on thiamine supplementation but currently refusing meds. B1 level ordered but refused lab draw HTN: REGINA inhibitor, refuses, BP reasonable Hypothyroidism: most recent TSH mildly high. Patient refusing Synthroid at home and inpatient. DVT prophylaxis: refusing all medications, ambulating very frequently so risk is low Dispo: memory care unit when bed available Admission and Anticipated Discharge Date Admission Date: November 25, 2023 Subjective Patient seen and examined this morning. patient reading book at time of encounter. Denied any complaints. Physical Exam Constitutional: WD/WN, vitals as above Eyes: PERRL, conjunctivae normal, anicteric sclerae Respiratory: breathing unlabored Cardiovascular: well perfused Psychiatric: oriented to self PG Care Time/CCT Total # of Minutes Spent Total Time Spent with Patient: Total time spent is greater than 50% in coordination of care (as documented) at patient's floor/unit and/or counseling patient: Coding Level of Care Code 64452 SUB INP/OBS CARE 03/18MIN Diagnoses Dementia, unspecified, with behavioral disturbance F03.918 Left leg pain M79.605 Type 2 diabetes mellitus E11.9 Hypothyroidism E03.9
--- NOTE | 2023-12-22 14:38 | Hospitalist Progress Note ---
Date of Service December 22, 2023 Assessment & Plan (1) Dementia, unspecified, with behavioral disturbance: Plan: Presented to the ED on 11/25/23 with worsening symptoms of agitation in the setting of his dementia, refusal of meds at home Earlier in the stay he was agreeable to meds, but has been refusing most meds except when his family is here (took synthroid, celebrex and olanzapine 12/07&12/08) -provider visits seem to agitate him more, as does the ipad shell molder. does better with staff and when family present -has refused labs and EKGs -B12 level:277, given 1000 mcg IM x 3 doses - TSH was 4.9 - B1 level was ordered but refused lab draw -If willing to take would continue with olanzapine 2.5 in AM and 5 mg in PM. consider Seroquel, Abilify or clonidine patch (see psychiatry note 12/06) (2) Left leg pain: Plan: Left knee x-rays done early in admission with OA changes only Longstanding bilateral knee OA, TKA was recommended for L knee in past which he refused. Has had steroid injections and synvisc injections for L knee in past. -tried knee brace that we have available in hospital but he could not tolerate -offer Celebrex, acetaminophen for arthritis pain, lidoderm -consulted ortho - has longstanding OA L knee and may have Guillen's cyst, however steroid injection or aspiration not recommended by ortho. Continues to ambulate well (3) Type 2 diabetes mellitus: Plan: HbA1c 6.7% stopped BG checks since all recorded <180 and he frequently refuses cont DM diet (4) Hypothyroidism: Plan: last TSH mildly high daughter states he was refusing to take his synthroid & other PO meds at home Plan Chronic conditions: History of colon cancer BPH - refusing meds Histroy of alcohol abuse, no evidence of withdrawal. Ideally he is on thiamine supplementation but currently refusing meds. B1 level ordered but refused lab draw HTN: REGINA inhibitor, refuses, BP reasonable Hypothyroidism: most recent TSH mildly high. Patient refusing Synthroid at home and inpatient. DVT prophylaxis: refusing all medications, ambulating very frequently so risk is low Dispo: memory care unit when bed available Admission and Anticipated Discharge Date Admission Date: November 25, 2023 Subjective Patient seen and examined this morning. Patient resting comfortably in bed. He offered no complaints. Physical Exam Constitutional: WD/WN, vitals as above Eyes: PERRL, conjunctivae normal, anicteric sclerae Respiratory: breathing unlabored Cardiovascular: well perfused Psychiatric: oriented to self PG Care Time/CCT Total # of Minutes Spent Total Time Spent with Patient: Total time spent is greater than 50% in coordination of care (as documented) at patient's floor/unit and/or counseling patient: Coding Level of Care Code 41000 SUB INP/OBS CARE 03/18MIN Diagnoses Dementia, unspecified, with behavioral disturbance F03.918 Left leg pain M79.605 Type 2 diabetes mellitus E11.9 Hypothyroidism E03.9
--- NOTE | 2023-12-23 13:17 | Hospitalist Progress Note ---
Date of Service December 23, 2023 Assessment & Plan (1) Dementia, unspecified, with behavioral disturbance: Plan: Presented to the ED on 11/25/23 with worsening symptoms of agitation in the setting of his dementia, refusal of meds at home Earlier in the stay he was agreeable to meds, but has been refusing most meds except when his family is here (took synthroid, celebrex and olanzapine 12/07&12/08) -provider visits seem to agitate him more, as does the ipad hot stick man. does better with staff and when family present -has refused labs and EKGs -B12 level:277, given 1000 mcg IM x 3 doses - TSH was 4.9 - B1 level was ordered but refused lab draw -If willing to take would continue with olanzapine 2.5 in AM and 5 mg in PM. consider Seroquel, Abilify or clonidine patch (see psychiatry note 12/06) (2) Left leg pain: Plan: Left knee x-rays done early in admission with OA changes only Longstanding bilateral knee OA, TKA was recommended for L knee in past which he refused. Has had steroid injections and synvisc injections for L knee in past. -tried knee brace that we have available in hospital but he could not tolerate -offer Celebrex, acetaminophen for arthritis pain, lidoderm -consulted ortho - has longstanding OA L knee and may have Guillen's cyst, however steroid injection or aspiration not recommended by ortho. Continues to ambulate well (3) Type 2 diabetes mellitus: Plan: HbA1c 6.7% stopped BG checks since all recorded <180 and he frequently refuses cont DM diet (4) Hypothyroidism: Plan: last TSH mildly high daughter states he was refusing to take his synthroid & other PO meds at home Plan Chronic conditions: History of colon cancer BPH - refusing meds Histroy of alcohol abuse, no evidence of withdrawal. Ideally he is on thiamine supplementation but currently refusing meds. B1 level ordered but refused lab draw HTN: REGINA inhibitor, refuses, BP reasonable Hypothyroidism: most recent TSH mildly high. Patient refusing Synthroid at home and inpatient. DVT prophylaxis: refusing all medications, ambulating very frequently so risk is low Dispo: memory care unit when bed available Admission and Anticipated Discharge Date Admission Date: November 25, 2023 Subjective Patient seen and examined today. patient was on his computer at time of encounter. denied complaints. He awaits placement. Physical Exam Constitutional: WD/WN, vitals as above Eyes: PERRL, conjunctivae normal, anicteric sclerae Psychiatric: oriented to self PG Care Time/CCT Total # of Minutes Spent Total Time Spent with Patient: Total time spent is greater than 50% in coordination of care (as documented) at patient's floor/unit and/or counseling patient: Coding Level of Care Code 05255 SUB INP/OBS CARE 03/18MIN Diagnoses Dementia, unspecified, with behavioral disturbance F03.918 Left leg pain M79.605 Type 2 diabetes mellitus E11.9 Hypothyroidism E03.9
--- NOTE | 2023-12-24 11:12 | Hospitalist Progress Note ---
Date of Service December 24, 2023 Assessment & Plan (1) Dementia, unspecified, with behavioral disturbance: Plan: Presented to the ED on 11/25/23 with worsening symptoms of agitation in the setting of his dementia, refusal of meds at home Earlier in the stay he was agreeable to meds, but has been refusing most meds except when his family is here (took synthroid, celebrex and olanzapine 12/07&12/08) -provider visits seem to agitate him more, as does the ipad higher level teaching assistant. does better with staff and when family present -has refused labs and EKGs -B12 level:277, given 1000 mcg IM x 3 doses - TSH was 4.9 - B1 level was ordered but refused lab draw -If willing to take would continue with olanzapine 2.5 in AM and 5 mg in PM. consider Seroquel, Abilify or clonidine patch (see psychiatry note 12/06) (2) Left leg pain: Plan: Left knee x-rays done early in admission with OA changes only Longstanding bilateral knee OA, TKA was recommended for L knee in past which he refused. Has had steroid injections and synvisc injections for L knee in past. -tried knee brace that we have available in hospital but he could not tolerate -offer Celebrex, acetaminophen for arthritis pain, lidoderm -consulted ortho - has longstanding OA L knee and may have Guillen's cyst, however steroid injection or aspiration not recommended by ortho. Continues to ambulate well (3) Type 2 diabetes mellitus: Plan: HbA1c 6.7% stopped BG checks since all recorded <180 and he frequently refuses cont DM diet (4) Hypothyroidism: Plan: last TSH mildly high daughter states he was refusing to take his synthroid & other PO meds at home Plan Chronic conditions: History of colon cancer BPH - refusing meds Histroy of alcohol abuse, no evidence of withdrawal. Ideally he is on thiamine supplementation but currently refusing meds. B1 level ordered but refused lab draw HTN: REGINA inhibitor, refuses, BP reasonable Hypothyroidism: most recent TSH mildly high. Patient refusing Synthroid at home and inpatient. DVT prophylaxis: refusing all medications, ambulating very frequently so risk is low Dispo: memory care unit when bed available Admission and Anticipated Discharge Date Admission Date: November 25, 2023 Subjective Patient seen and examined this morning. Patient on his computer at time of encounter. Physical Exam Constitutional: WD/WN, vitals as above Eyes: PERRL, conjunctivae normal, anicteric sclerae Respiratory: unlabored breathing Cardiovascular: well perfused Psychiatric: oriented to self PG Care Time/CCT Total # of Minutes Spent Total Time Spent with Patient: Total time spent is greater than 50% in coordination of care (as documented) at patient's floor/unit and/or counseling patient: Coding Level of Care Code 94051 SUB INP/OBS CARE 03/18MIN Diagnoses Dementia, unspecified, with behavioral disturbance F03.918 Left leg pain M79.605 Type 2 diabetes mellitus E11.9 Hypothyroidism E03.9
--- NOTE | 2023-12-25 09:57 | Hospitalist Progress Note ---
Date of Service December 25, 2023 Assessment & Plan (1) Dementia, unspecified, with behavioral disturbance: Plan: Presented to the ED on 11/25/23 with worsening symptoms of agitation in the setting of his dementia, refusal of meds at home Earlier in the stay he was agreeable to meds, but has been refusing most meds except when his family is here (took synthroid, celebrex and olanzapine 12/07&12/08) -provider visits seem to agitate him more, as does the ipad multimedia production assistant. does better with staff and when family present -has refused labs and EKGs -B12 level:277, given 1000 mcg IM x 3 doses - TSH was 4.9 - B1 level was ordered but refused lab draw -If willing to take would continue with olanzapine 2.5 in AM and 5 mg in PM. consider Seroquel, Abilify or clonidine patch (see psychiatry note 12/06) (2) Left leg pain: Plan: Left knee x-rays done early in admission with OA changes only Longstanding bilateral knee OA, TKA was recommended for L knee in past which he refused. Has had steroid injections and synvisc injections for L knee in past. -tried knee brace that we have available in hospital but he could not tolerate -offer Celebrex, acetaminophen for arthritis pain, lidoderm -consulted ortho - has longstanding OA L knee and may have Guillen's cyst, however steroid injection or aspiration not recommended by ortho. Continues to ambulate well (3) Type 2 diabetes mellitus: Plan: HbA1c 6.7% stopped BG checks since all recorded <180 and he frequently refuses cont DM diet (4) Hypothyroidism: Plan: last TSH mildly high daughter states he was refusing to take his synthroid & other PO meds at home Plan Chronic conditions: History of colon cancer BPH - refusing meds Histroy of alcohol abuse, no evidence of withdrawal. Ideally he is on thiamine supplementation but currently refusing meds. B1 level ordered but refused lab draw HTN: REGINA inhibitor, refuses, BP reasonable Hypothyroidism: most recent TSH mildly high. Patient refusing Synthroid at home and inpatient. DVT prophylaxis: refusing all medications, ambulating very frequently so risk is low Dispo: memory care unit when bed available Admission and Anticipated Discharge Date Admission Date: November 25, 2023 Subjective Patient seen walking the hallway today. denied complaints. Results & Data Results & Data Vital Signs (Past 12 Hours) Vital Signs O2 Del Method 12/25/23 07:45 Room Air PG Care Time/CCT Total # of Minutes Spent Total Time Spent with Patient: Total time spent is greater than 50% in coordination of care (as documented) at patient's floor/unit and/or counseling patient: Coding Level of Care Code 85674 SUB INP/OBS CARE 03/18MIN Diagnoses Dementia, unspecified, with behavioral disturbance F03.918 Left leg pain M79.605 Type 2 diabetes mellitus E11.9 Hypothyroidism E03.9
--- NOTE | 2023-12-26 09:05 | Hospitalist Progress Note ---
Date of Service December 26, 2023 Assessment & Plan (1) Dementia, unspecified, with behavioral disturbance: Plan: Presented to the ED on 11/25/23 with worsening symptoms of agitation in the setting of his dementia, refusal of meds at home Earlier in the stay he was agreeable to meds, but has been refusing most meds except when his family is here (took synthroid, celebrex and olanzapine 12/07&12/08) -provider visits seem to agitate him more, as does the ipad biosecurity officer. does better with staff and when family present -has refused labs and EKGs -B12 level:277, given 1000 mcg IM x 3 doses - TSH was 4.9 - B1 level was ordered but refused lab draw -If willing to take would continue with olanzapine 2.5 in AM and 5 mg in PM. consider Seroquel, Abilify or clonidine patch (see psychiatry note 12/06) (2) Left leg pain: Plan: Left knee x-rays done early in admission with OA changes only Longstanding bilateral knee OA, TKA was recommended for L knee in past which he refused. Has had steroid injections and synvisc injections for L knee in past. -tried knee brace that we have available in hospital but he could not tolerate -offer Celebrex, acetaminophen for arthritis pain, lidoderm -consulted ortho - has longstanding OA L knee and may have Guillen's cyst, however steroid injection or aspiration not recommended by ortho. Continues to ambulate well (3) Type 2 diabetes mellitus: Plan: HbA1c 6.7% stopped BG checks since all recorded <180 and he frequently refuses cont DM diet (4) Hypothyroidism: Plan: last TSH mildly high daughter states he was refusing to take his synthroid & other PO meds at home Plan Chronic conditions: History of colon cancer BPH - refusing meds Histroy of alcohol abuse, no evidence of withdrawal. Ideally he is on thiamine supplementation but currently refusing meds. B1 level ordered but refused lab draw HTN: REGINA inhibitor, refuses, BP reasonable Hypothyroidism: most recent TSH mildly high. Patient refusing Synthroid at home and inpatient. DVT prophylaxis: refusing all medications, ambulating very frequently so risk is low Dispo: memory care unit when bed available Admission and Anticipated Discharge Date Admission Date: November 25, 2023 Subjective patient seen this morning in his room. he was playing chess on his computer at time of encounter. denied any complaints. Physical Exam Constitutional: WD/WN, vitals as above Eyes: PERRL, conjunctivae normal, anicteric sclerae Psychiatric: oriented to self PG Care Time/CCT Total # of Minutes Spent Total Time Spent with Patient: Total time spent is greater than 50% in coordination of care (as documented) at patient's floor/unit and/or counseling patient: Coding Level of Care Code 59065 SUB INP/OBS CARE 03/18MIN Diagnoses Dementia, unspecified, with behavioral disturbance F03.918 Left leg pain M79.605 Type 2 diabetes mellitus E11.9 Hypothyroidism E03.9
--- NOTE | 2023-12-27 10:41 | Hospitalist Progress Note ---
Date of Service December 27, 2023 Assessment & Plan (1) Dementia, unspecified, with behavioral disturbance: Plan: Presented to the ED on 11/25/23 with worsening symptoms of agitation in the setting of his dementia, refusal of meds at home Earlier in the stay he was agreeable to meds, but has been refusing most meds except when his family is here (took synthroid, celebrex and olanzapine 12/07&12/08) -provider visits seem to agitate him more, as does the ipad lang interpreter. does better with staff and when family present -has refused labs and EKGs -B12 level:277, given 1000 mcg IM x 3 doses - TSH was 4.9 - B1 level was ordered but refused lab draw -If willing to take would continue with olanzapine 2.5 in AM and 5 mg in PM. consider Seroquel, Abilify or clonidine patch (see psychiatry note 12/06) (2) Left leg pain: Plan: Left knee x-rays done early in admission with OA changes only Longstanding bilateral knee OA, TKA was recommended for L knee in past which he refused. Has had steroid injections and synvisc injections for L knee in past. -tried knee brace that we have available in hospital but he could not tolerate -offer Celebrex, acetaminophen for arthritis pain, lidoderm -consulted ortho - has longstanding OA L knee and may have Guillen's cyst, however steroid injection or aspiration not recommended by ortho. Continues to ambulate well (3) Type 2 diabetes mellitus: Plan: HbA1c 6.7% stopped BG checks since all recorded <180 and he frequently refuses cont DM diet (4) Hypothyroidism: Plan: last TSH mildly high daughter states he was refusing to take his synthroid & other PO meds at home Plan Chronic conditions: History of colon cancer BPH - refusing meds History of alcohol abuse, no evidence of withdrawal. Ideally he is on thiamine supplementation but currently refusing meds. B1 level ordered but refused lab draw HTN: lisinopril 10mg - has fallen off med list, but pt refusing, BP okay CAD - refusing simvastatin 40mg HS, has fallen off med list. DVT prophylaxis: refusing all medications, ambulating very frequently so risk is low Dispo: memory care unit when bed available Admission and Anticipated Discharge Date Admission Date: November 25, 2023 Supervising Physician Co-Signing Physician Notes PA Supervision Note: I did not personally see or examine the patient today, but I verified all moreno points of PATRICE Jose's assessment and plan with the following exceptions/additions: None Subjective Patient seen ambulating in the halls and then seen in his room. Sitting at his desk, playing chess on the computer. no acute complaints, states he is waiting on his daughter. Review of Systems Review of Systems: All systems reviewed & are unremarkable except as noted in Subjective Physical Exam Physical Exam: General: ambulating in the halls, Pulm: breathing unlabored CV: well perfused extremities: moves all extremities Results & Data Results & Data Vital Signs (Past 12 Hours) Vital Signs O2 Del Method 12/27/23 07:00 Room Air PG Care Time/CCT Total # of Minutes Spent Total Time Spent with Patient: Total time spent is greater than 50% in coordination of care (as documented) at patient's floor/unit and/or counseling patient: Coding Level of Care Code 47502 SUB INP/OBS CARE 03/18MIN Diagnoses Dementia, unspecified, with behavioral disturbance F03.918 Left leg pain M79.605 Type 2 diabetes mellitus E11.9 Hypothyroidism E03.9
--- NOTE | 2023-12-28 13:55 | Hospitalist Progress Note ---
Date of Service December 28, 2023 Assessment & Plan (1) Dementia, unspecified, with behavioral disturbance: Plan: Presented to the ED on 11/25/23 with worsening symptoms of agitation in the setting of his dementia, refusal of meds at home Earlier in the stay he was agreeable to meds, but has been refusing most meds except when his family is here (took synthroid, celebrex and olanzapine 12/07&12/08) -provider visits seem to agitate him more, as does the ipad language interpreter. does better with staff and when family present -has refused labs and EKGs -B12 level:277, given 1000 mcg IM x 3 doses - TSH was 4.9 - B1 level was ordered but refused lab draw -If willing to take would continue with olanzapine 2.5 in AM and 5 mg in PM. consider Seroquel, Abilify or clonidine patch (see psychiatry note 12/06) (2) Left leg pain: Plan: Left knee x-rays done early in admission with OA changes only Longstanding bilateral knee OA, TKA was recommended for L knee in past which he refused. Has had steroid injections and synvisc injections for L knee in past. -tried knee brace that we have available in hospital but he could not tolerate -offer Celebrex, acetaminophen for arthritis pain, lidoderm -consulted ortho - has longstanding OA L knee and may have Guillen's cyst, however steroid injection or aspiration not recommended by ortho. Continues to ambulate well (3) Type 2 diabetes mellitus: Plan: HbA1c 6.7% stopped BG checks since all recorded <180 and he frequently refuses cont DM diet (4) Hypothyroidism: Plan: last TSH mildly high daughter states he was refusing to take his synthroid & other PO meds at home Plan Chronic conditions: History of colon cancer BPH - refusing meds History of alcohol abuse, no evidence of withdrawal. Ideally he is on thiamine supplementation but currently refusing meds. B1 level ordered but refused lab draw HTN: lisinopril 10mg - has fallen off med list, but pt refusing, BP okay CAD - refusing simvastatin 40mg HS, has fallen off med list. DVT prophylaxis: refusing all medications, ambulating very frequently so risk is low Dispo: memory care unit when bed available Daughter updated at bedside 12/26 and 12/27 Admission and Anticipated Discharge Date Admission Date: November 25, 2023 Supervising Physician Co-Signing Physician Notes PATRICE Supervision Note: I did not personally see or examine the patient today, but I verified all moreno points of PATRICE Jose's assessment and plan with the following exceptions/additions: None Subjective Patient seen earlier this morning and had no concerns revisited this afternoon at request of the daughter - Lolly cannot understand the reason that he is still here. Daughter was asking for geripsych placement and explained that lolly would not be a candidate for this. She is concerned because Lolly asked her to bring food because he does not want to eat out food. I encouraged Lolly to take medications with his daughter present and he still continues to decline Review of Systems Review of Systems: All systems reviewed & are unremarkable except as noted in Subjective Physical Exam Physical Exam: General: ambulating in the halls, Pulm: breathing unlabored CV: well perfused extremities: moves all extremities PG Care Time/CCT Total # of Minutes Spent Total Time Spent with Patient: Total time spent is greater than 50% in coordination of care (as documented) at patient's floor/unit and/or counseling patient: Coding Level of Care Code 11156 SUB INP/OBS CARE 03/18MIN Diagnoses Dementia, unspecified, with behavioral disturbance F03.918 Left leg pain M79.605 Type 2 diabetes mellitus E11.9 Hypothyroidism E03.9
--- NOTE | 2023-12-29 15:28 | Hospitalist Progress Note ---
Date of Service December 29, 2023 Assessment & Plan (1) Dementia, unspecified, with behavioral disturbance: Plan: Presented to the ED on 11/25/23 with worsening symptoms of agitation in the setting of his dementia, refusal of meds at home Earlier in the stay he was agreeable to meds, but has been refusing most meds except when his family is here (took synthroid, celebrex and olanzapine 12/07&12/08) -provider visits seem to agitate him more, as does the ipad deaf interpreter. does better with staff and when family present -has refused labs and EKGs -B12 level:277, given 1000 mcg IM x 3 doses - TSH was 4.9 - B1 level was ordered but refused lab draw -If willing to take would continue with olanzapine 2.5 in AM and 5 mg in PM. consider Seroquel, Abilify or clonidine patch (see psychiatry note 12/06) (2) Left leg pain: Plan: Left knee x-rays done early in admission with OA changes only Longstanding bilateral knee OA, TKA was recommended for L knee in past which he refused. Has had steroid injections and synvisc injections for L knee in past. -tried knee brace that we have available in hospital but he could not tolerate -offer Celebrex, acetaminophen for arthritis pain, lidoderm -consulted ortho - has longstanding OA L knee and may have Guillen's cyst, however steroid injection or aspiration not recommended by ortho. Continues to ambulate well (3) Type 2 diabetes mellitus: Plan: HbA1c 6.7% stopped BG checks since all recorded <180 and he frequently refuses cont DM diet (4) Hypothyroidism: Plan: last TSH mildly high daughter states he was refusing to take his synthroid & other PO meds at home Plan Chronic conditions: History of colon cancer BPH - refusing meds History of alcohol abuse, no evidence of withdrawal. Ideally he is on thiamine supplementation but currently refusing meds. B1 level ordered but refused lab draw HTN: lisinopril 10mg - has fallen off med list, but pt refusing, BP okay CAD - refusing simvastatin 40mg HS, has fallen off med list. DVT prophylaxis: refusing all medications, ambulating very frequently so risk is low Dispo: memory care unit tomorrow Daughter updated at bedside 12/26 and 12/27 Admission and Anticipated Discharge Date Admission Date: November 25, 2023 Supervising Physician Co-Signing Physician Notes PATRICE Supervision Note: I did not personally see or examine the patient today, but I verified all moreno points of PATRICE Jose's assessment and plan with the following exceptions/additions: None Subjective Patient seen ambulating in room, still cannot understand why he is not leaving the hospital. no acute complaints Review of Systems Review of Systems: All systems reviewed & are unremarkable except as noted in Subjective Physical Exam Physical Exam: General: ambulating in the halls, Pulm: breathing unlabored CV: well perfused extremities: moves all extremities Results & Data Results & Data Vital Signs (Past 12 Hours) Vital Signs O2 Del Method 12/29/23 07:11 Room Air PG Care Time/CCT Total # of Minutes Spent Total Time Spent with Patient: Total time spent is greater than 50% in coordination of care (as documented) at patient's floor/unit and/or counseling patient: Coding Level of Care Code 60498 SUB INP/OBS CARE 03/18MIN Diagnoses Dementia, unspecified, with behavioral disturbance F03.918 Left leg pain M79.605 Type 2 diabetes mellitus E11.9 Hypothyroidism E03.9
--- NOTE | 2023-12-30 07:50 | Discharge Summary ---
Discharge Summary Date of Service December 30, 2023 Principal Dx & Hospital Course #1 = Principal Diagnosis (1) Dementia, unspecified, with behavioral disturbance: Presented to the ED on 11/25/23 with worsening symptoms of agitation in the setting of his dementia, refusal of meds at home Earlier in the stay he was agreeable to meds, but has been refusing most meds except when his family is here (took synthroid, celebrex and olanzapine 12/07&12/08) -has refused labs and EKGs -B12 level:277, given 1000 mcg IM x 3 doses - TSH was 4.9 - B1 level was ordered but refused lab draw -If willing to take would continue with olanzapine 2.5 in AM and 5 mg in PM. consider Seroquel, Abilify or clonidine patch (see psychiatry note 12/06) (2) Left leg pain: Left knee x-rays done early in admission with OA changes only Longstanding bilateral knee OA, TKA was recommended for L knee in past which he refused. Has had steroid injections and synvisc injections for L knee in past. -tried knee brace that we have available in hospital but he could not tolerate -offer Celebrex, acetaminophen for arthritis pain, lidoderm -consulted ortho - has longstanding OA L knee and may have Guillen's cyst, however steroid injection or aspiration not recommended by ortho. Continues to ambulate well (3) Type 2 diabetes mellitus: HbA1c 6.7% stopped BG checks since all recorded <180 and he frequently refuses cont DM diet (4) Hypothyroidism: last TSH mildly high daughter states he was refusing to take his synthroid & other PO meds at home Plan Chronic conditions: History of colon cancer BPH - refusing meds History of alcohol abuse, no evidence of withdrawal. Ideally he is on thiamine supplementation but currently refusing meds. B1 level ordered but refused lab draw HTN: lisinopril 10mg - has fallen off med list, but pt refusing, BP okay CAD - refusing simvastatin 40mg HS, has fallen off med list. DVT prophylaxis: refusing all medications, ambulating very frequently so risk is low Dispo: discharge today Daughter updated at bedside 12/26 and 12/27 Notes For Next Care Provider Medication Changes From Visit sent meds that would be beneficial if he is willing to take Admission HPI Per Admitting Provider Lolly Chavira is an 83yo male with history of dementia, HTN, HLP, GERD presenting with progressive agitation. Patient is confused at present - history obtained through chart review, discussion with ER staff and discussion with patient's daughter Barbra Hernandez ([phone]). Daughter reports that patient has longstanding history of dementia with prog ressive worsening over the last several months. He presently lives alone at [facility] behind [facility]. He has some caregivers and home health nurses that assist him. Overall he has become more difficult to manage at home. Daughter has been receiving frequent calls from the lead assistant manager that patient is wandering about the complex in various stages of undress, agitations, bothering his neighbors and increasingly difficult to redirect. He has been resistant to seeing doctors and has stopped taking all of his medications several days ago. His caregivers have not been coming in due to his worsening agitation. Patient complains of some joint pain, specifically focused on his right knee. Otherwise offers no complaints - denies chest pain, cough, SOB, abdominal pain, nausea, vomiting or diarrhea. In the ER he is afebrile, HD stable Agitated requiring multiple rounds of Haldol ER Course: Haldol 5mg IM x 3 doses Ativan 1mg IM Discharge Exam General: sitting up in room playing chess Pulm: breathing unlabored CV: well perfused extremities: moves all extremities Discharge Plan Discharge Items Patient Disposition: Personal Alf Reason For Visit: WORSENING AGITATION, ?DELIRIUM ON DEMENTIA? Discharge Diagnosis: Dementia Activity: Resume your previous activity Bathing: No limitations Driving/Machine Use: No driving Weightbearing: Full weightbearing Non-emergency contact: Primary Care Provider Call non-emergency contact if: you have any medication questions and your symptoms worsen Follow-up/Referrals: Deepthi Rosas PA-C [Primary Care Provider] - Diet: Carb Consistent or DM2 Addtl Attending Provider Instructions: Mr. Chavira was admitted with worsening dementia and inability to live alone. He has been refusing his medications while he has been here. I have sent in the rx for the medications that were recommended. These medications were discontinued here but could be considered if he becomes agreeable. Lisinopril 10mg Simvastatin 40mg Lolly is able bodied and likes to help/given tasks to do! Pending Studies at Discharge: No Stand-Alone Forms: My [facility], Smoking Cessation Skilled Items Patient informed of condition?: Yes DNR: Yes Discharge Level of Care: Other Communicable Disease: No Discharge Prognosis: Stable Lines: None Urinary Catheter: No Medications and DC Order Prescriptions: New olanzapine 5 mg Tablet,Disintegrating 5 mg PO HS 90 Days Qty: 90 0RF celecoxib [Celebrex] 100 mg Capsule 100 mg PO BID PRN (Reason: pain) 90 Days Qty: 180 0RF levothyroxine [Synthroid] 50 mcg Tablet 50 mcg PO DAILYBB Qty: 90 0RF vitamin B complex [Vitamins B Complex] Capsule 1 cap PO QAM 90 Days Qty: 90 0RF Continued metformin 500 mg tablet 500 mg PO DAILY 90 Days Qty: 90 0RF Rx Instructions: TAKE WITH FOOD Discontinued duloxetine 30 mg capsule,delayed release(DR/EC) 30 mg PO DAILY finasteride 5 mg tablet 5 mg PO DAILY Qty: 90 0RF lisinopril 10 mg tablet 10 mg PO DAILY Qty: 90 0RF omeprazole 40 mg capsule,delayed release(DR/EC) 40 mg PO DAILY Qty: 90 0RF silver sulfadiazine 1 % cream 1 applic TOPICAL DAILY triamcinolone acetonide 0.1 % cream 1 applic TOPICAL DAILY simvastatin 40 mg tablet 40 mg PO HS donepezil 5 mg tablet,disintegrating 5 mg PO . Q EVENING & HS Discharge Orders: Discharge Order (Routine); Ordered 12/30/23 Ordered By: Keiko Jha/Other Patient Handouts: Type 2 Diabetes Admission Data Admit Date/Time: 11/25/23 20:14 Attending Provider: Lc Oneill Admit Provider: Alyssa Phelps Primary Care Provider: Deepthi Rosas Other Providers: Alyssa Phelps; [place]; Krystina Hand; Devon Tony; Jefry Waggoner Jr; Ana Palomino; Bhavna Barber; Junior Bowman; Alana Birmingham; Scott Palacio Hospital Stay Data Consultations 11/25/23 18:43 ED Decision to Admit Stat 11/27/23 13:15 Consult Psychiatry Routine 11/30/23 13:46 Consult Psychiatry Stat 12/09/23 10:51 Consult Orthopedic Surgery Routine Diagnostic Imagining Performed 11/25/23 15:32 CT head/brain wo con Stat Pending Results Patient Have Any Pending Studies at Discharge: No Discharge Instructions Given to Patient (Per Discharging Provider) Mr. Chavira was admitted with worsening dementia and inability to live alone. He has been refusing his medications while he has been here. I have sent in the rx for the medications that were recommended. These medications were discontinued here but could be considered if he becomes agreeable. Lisinopril 10mg Simvastatin 40mg Lolly is able bodied and likes to help/given tasks to do! Total Time Total Time Spent Total Time Spent (In Minutes): Time spent day of discharge 20 minutes including direct patient care, medication reconciliation, documentation, review of labs and images, and coordination of care. Coding Level of Care Code 23608 IN/OBS DISCH 30 MIN/LESS Diagnoses Dementia, unspecified, with behavioral disturbance F03.918 Left leg pain M79.605 Type 2 diabetes mellitus E11.9 Hypothyroidism E03.9
[2023-12-30 09:06] VITALS: BP 115/87; PULSE 91; RESP 18; TEMP 97.7; O2SAT 98
== END 2023-12-30 10:06 | disposition home or self-care (01) | DRG 884 ==
LOC: ED 15:06 → EDINP 20:14 → INTOOBSV 20:14 → SUATTDRO 20:14 → 3E 11-27 14:30 → 3N 11-27 19:16